=== PATIENT | female | born 1980 | race Caucasian/White ===

== ENCOUNTER 2019-02-26 07:00 | Outpatient (CLI) | payer BC, MEDICAID, SELFPAY ==
--- NOTE | 2019-02-26 16:20 | DI.US_ITS ---
Many abnormalities cannot be diagnosed. A normal exam does not exclude a congenital anomaly. 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 Coleman in attendance. Transabdominal and transvaginal exams were performed. A gestational sac is within the endometrium. The sac appears somewhat collapsed. A pole is seen which does not show cardiac activity, consistent with demise. [place] rump length measurements correspond to 7 weeks 5 days which is nearly two weeks below expected date. The ovaries are unremarkable. No free fluid is seen. IMPRESSION: Non-viable intrauterine gestation.
== END 2019-02-26 07:20 ==
PROVIDERS: PCP Family Medicine; Visit Provider Obstetrics & Gynecology
DX: O03.9 Complete or unspecified spontaneous abortion without complication (principal)
CPT/HCPCS: 76801

== ENCOUNTER 2019-02-27 06:50 | Day surgery (SDC) | payer BC, MEDICAID, SELFPAY ==
[2019-02-27 07:04] VITALS: BP 128/84; PULSE 90; RESP 18; TEMP 36.6; O2SAT 99
[2019-02-27 07:29] LABS: HCT 41.5 % (36.0-46.0); Mean Corp. HGB Concentration 33.7 g/dL (32.0-36.0); Mean Corpuscular Hemoglobin 30.3 pg (27.0-33.0); Mean Corpuscular Volume 89.8 fL (80-95); Mean Platelet Volume 11.7 fL (8.0-11.0); Platelet Count 264 x1000/uL (130-400); RBC 4.62 m/cumm (4.00-5.20); RBC Distribution Width 13.5 % (11.7-14.6); White Blood Cell Count 6.23 k/cumm (4.4-10.8)
[2019-02-27] MEDS: Lactated Ringers 1,000 ML 125 ML IV (07:33)
--- NOTE | 2019-02-27 09:18 | POCSPONT_PTH ---
PATIENT: Yani Catalan LOC: [facility] U#:[id number] AGE/SX: 38/F ROOM: RE02/27/[address]: Ashok Coleman MD : 1980 BED: DIS: 02/27/2019 SPEC #: [id number] RECD: 02/27/19 12:15 STATUS: LONNY RE #: [id number] NALLELY: 02/27/19 09:[address]: Ashok Coleman DEPT: Surgical Specimen RECD BY: Juliana Boyd ENTERED: 02/27/19 12:16 SP TYPE: POCSPONT CARMELO DR: Michelle Gallardo Tissues: 1 - ,SPONTANEOUS Procedures: GROSS AND MICRO LEVEL 4 Comments: [id number]
[2019-02-27] MEDS: Lidocaine 1% Multi-Dose 50 ML VIAL (09:21)
[2019-02-27 10:28] VITALS: BP 119/73; PULSE 71; RESP 14; TEMP 36.5; O2SAT 98
[2019-02-27] MEDS: Acetaminophen 325 MG TAB 650 MG PO (10:30)
--- NOTE | 2019-03-23 10:20 | W.PM.OP ---
Date of service: 02/27/19 Operative Note DATE OF PROCEDURE: 02/27/19 PRE-OP DIAGNOSIS: 7 week missed POST-OP DIAGNOSIS: same PROCEDURE: Suction D&C SURGEON: Ashok Coleman ANESTHESIA: MAC ESTIMATED BLOOD LOSS: 0 COMPLICATIONS: None Patient was transported to: PACU Patient's condition: stable Findings: Products of conception Procedure Description: The patient was taken to the operating room and after an adequate level of sedation was achieved the patient was placed in lithotomy position. The patient was prepped and draped in usual sterile manner. A weighted speculum was placed in the vagina with good visualization of the cervix. The anterior lip of the cervix was grasped with an Allis forcep. The cervix was gently dilated with Lucas dilators and a 9 Bengali curved suction curette was advanced without difficulty. The suction device was activated and curette rotated. Copious products of conception were returned. A sharp curettage was performed yielding additional tissue. A second and third pass was made with the suction curette and a second pass was made a sharp curettage confirming a gritty texture throughout. The procedure was concluded at this point. Sponge lap needle counts were correct at the conclusion of the procedure. The procedure was tolerated well and the patient was transferred to PACU in stable condition.
== END 2019-02-27 11:25 | disposition home or self-care (01) ==
PROVIDERS: PCP Family Medicine; Visit Provider Obstetrics & Gynecology
PROC: (CPT 59841; principal; 2019-02-27 08:30)
DX: O02.1 Missed abortion (principal)
CPT/HCPCS: 59820; 85027; 86850; 86900; 86901; 88305; J1885; J2250; J2405; J3010

== ENCOUNTER 2019-06-12 10:30 | Emergency (ER) | payer BC, MEDICAID, SELFPAY ==
[2019-06-12 10:45] VITALS: BP 146/94; PULSE 104; RESP 16; TEMP 37.1; O2SAT 99
--- NOTE | 2019-06-12 10:56 | ED.GENADUL_ITS ---
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 It is extremely important that you call as soon as possible to make an appointment to be seen in follow-up for this visit by your assistant center director and also by your primary care doctor. Referrals: Michelle Gallardo [Primary Care Provider] - Arnaud RUSSO,Denise [NURSE PRACTITIONER] - Discharge Data Discharge Date/Time-TO BE ENTERED AT DEPARTURE: 06/12/19 12:47 Medical Decision Making Yani Catalan is a 38-year-old woman with a history of asthma G3, P1 presenting to the emergency department with positive test 1 week ago and vaginal spotting today, no pain or other symptoms. On exam patient is well and nontoxic appearing. Concern for ectopic versus threatened . Plan for screening CBC, blood type, UA, U , first trimester ultrasound. Urine test negative. Given patient's report of recent positive test, will send serum quantitative hCG. hCG 4. At this time with no abdominal pain, trace hCG elevation, no symptoms other than light vaginal bleeding, I do not suspect ectopic . Suspect complete miscarriage at this time. Patient declined pelvic exam and pelvic ultrasound which were offered. I had a lengthy discussion with the patient regarding return to emergency department precautions, importance of outpatient follow-up with her PCP and also with her CIGARETTE EXAMINER specialist, and home care. Patient verbalized understanding of the plan was amenable. All questions were a nswered. Medical Records Medical records reviewed: Yes I reviewed the patient's medical records. Lab Data Lab results reviewed: Yes I reviewed the patient's lab results. Laboratory Tests Range/Units 06/12/19 06/12/19 06/12/19 10:56 11:00 11:15 WBC (4.4-10.8) k/cumm 6.95 RBC (4.00-5.20) m/cumm 4.64 Hgb (12.0-15.5) g/dL 14.3 Hct (36.0-46.0) % 42.3 MCV (80-95) fL 91.2 MCH (27.0-33.0) pg 30.8 MCHC (32.0-36.0) g/dL 33.8 RDW (11.7-14.6) % 14.1 Plt Count (130-400) x1000/uL 226 MPV (8.0-11.0) fL 11.8 H Immature Gran % 0.1 Neutrophils % 53.0 Lymphocytes % 35.4 Monocytes % 5.6 Eosinophils % 5.3 Basophils % 0.6 Absolute Neutrophils (1.2-6.7) k/cumm 3.68 Absolute Lymphocytes (1.2-3.4) k/cumm 2.46 Absolute Monocytes (0.11-0.7) k/cumm 0.39 Absolute Eosinophils (0.0-0.7) k/cumm 0.37 Absolute Basophils (0.0-0.2) k/cumm 0.04 Beta HCG, Quant (1-3) mIU/mL Urine Color (Yellow) Straw Urine Clarity (Clear) Sl cloudy Urine pH (5-8) 7.0 Ur Specific [place] (1.005-1.025) <= 1.005 Urine Protein (Negative) mg/dL Negative Urine Ketones (Negative) mg/dL Negative Urine Blood (Negative) Moderate H Urine Nitrite (Negative) Negative Urine Bilirubin (Negative) Negative Urine Urobilinogen (Up TO 0.2) EU/dL 0.2 Ur Leukocyte Esterase (Negative) Trace H Urine RBC (0-2) 0-2 Urine WBC (0-5) HPF 10-20 Ur Epithelial Cells (Negative) HPF Many Urine Crystals (Negative) HPF Negative Urine Bacteria (Negative) HPF Few Urine Mucus (Negative) Negative Urine Other (Negative) Ur Culture Indicated? No/sq. contamination Urine Glucose (Negative) mg/dL Negative Patient ABO/Rh Cancelled Range/Units 06/12/19 11:15 WBC (4.4-10.8) k/cumm RBC (4.00-5.20) m/cumm Hgb (12.0-15.5) g/dL Hct (36.0-46.0) % MCV (80-95) fL MCH (27.0-33.0) pg MCHC (32.0-36.0) g/dL RDW (11.7-14.6) % Plt Count (130-400) x1000/uL MPV (8.0-11.0) fL Immature Gran % Neutrophils % Lymphocytes % Monocytes % Eosinophils % Basophils % Absolute Neutrophils (1.2-6.7) k/cumm Absolute Lymphocytes (1.2-3.4) k/cumm Absolute Monocytes (0.11-0.7) k/cumm Absolute Eosinophils (0.0-0.7) k/cumm Absolute Basophils (0.0-0.2) k/cumm Beta HCG, Quant (1-3) mIU/mL 4 H Urine Color (Yellow) Urine Clarity (Clear) Urine pH (5-8) Ur Specific [place] (1.005-1.025) Urine Protein (Negative) mg/dL Urine Ketones (Negative) mg/dL Urine Blood (Negative) Urine Nitrite (Negative) Urine Bilirubin (Negative) Urine Urobilinogen (Up TO 0.2) EU/dL Ur Leukocyte Esterase (Negative) Urine RBC (0-2) Urine WBC (0-5) HPF Ur Epithelial Cells (Negative) HPF Urine Crystals (Negative) HPF Urine Bacteria (Negative) HPF Urine Mucus (Negative) Urine Other (Negative) Ur Culture Indicated? Urine Glucose (Negative) mg/dL Patient ABO/Rh HPI General Mode of arrival: ambulatory . Date/Time Provider Initiated Documentation: 06/12/19 10:45 . Limitations to Documentation: no limitations . Information obtained by: patient, RN notes reviewed and old records reviewed . HPI Narrative: Yani Catalan is a 38-year-old woman with a history of asthma, presenting to the emergency department with positive test and vaginal bleeding. Patient reports that she has 1 child and had a miscarriage followed by D&C this past spring. Patient reports that her last menstrual. Was May 09. She reports that she had a prior set of test approximately 1 week ago. She has not had an ultrasound. Patient reports that this morning she noticed some vaginal spotting that has become somewhat more pronounced. She de nies any abdominal/pelvic pain or any other pain. She denies any other symptoms and feels otherwise in her usual state of health. Related Data Home Medications Medication Instructions Recorded Confirmed albuterol sulfate 2 puff INHALATION Q6H PRN PRN #1 02/18/15 06/12/19 hfa.aer.ad prenat.vits,herman,[id number]-ckeu-mnipd 1 tab PO DAILY 01/24/19 06/12/19 Previous Rx's Medication Instructions Recorded albuterol sulfate 2 puff INHALATION Q6H PRN PRN #1 02/18/15 hfa.aer.ad Allergies Allergy/AdvReac Type Severity Reaction Status Date / Time No Known Allergies Allergy Unverified 06/12/19 10:49 General Stated Complaint: CIGARETTE EXAMINER CHALO: 2 Review of Systems Review of Systems Constitutional: denies fevers Eyes: denies eye pain ENT: denies facial pain, dental pain, sore throat Cardiovascular: denies chest pain Respiratory: denies SOB, cough GI: denies abdominal pain, vomiting, diarrhea : denies flank pain MSK: denies back pain, neck pain, arthralgias, myalgias Skin: denies rash Neuro: denies headaches, numbness, weakness PFS Medical History Hip dysplasia (Acute) Vaginal delivery (Acute) Surgical History (Updated 02/27/19 @ 07:15 by Rox West RN) History of arthroscopic knee surgery (Chronic) History of hip surgery (Acute) Family History Mother Mouth cancer Social History Smoking/Tobacco Use Status: Never Drug use: Never Details: wine daily up until a couple of months ago. Do you feel safe at home: Yes Do you feel safe in your relationship?: Yes Female Reproductive History Menstrual control method: none History History 1 Para 1 Hx # Term Pregnancies Multiple births Hx # Pregnancies Ectopic pregnancies AB induced Hx Number of Living Children AB spontaneous Exam Narrative Exam Narrative: Constitutional: well and ksc-masum-ajwfysloh, pleasant, conversing normally HENT: head atraumatic/normocephalic/normal inspection, mucous membranes moist Eyes: conjunctiva normal, sclera normal, pupils 3mm b/l Neck: no stridor, normal ROM, trachea midline Chest: normal inspection Resp: normal work of breathing, LCTAB Cardio: normal rate, normal rhythm, no murmur appreciated GI: abdomen soft, non-tender, non-distended Back: normal inspection, no rash Skin: warm, dry, normal color, no rash Neuro: alert, not altered, grossly non-focal, normal tone Ext: no edema Psych: normal mood, normal affect, normal behavior Course Vital Signs Temperature 37.1 C 06/12/19 10:45 Pulse 104 H 06/12/19 10:45 Respiratory Rate 16 06/12/19 10:45 Blood Pressure 146/94 H 06/12/19 10:45 Pulse Oximetry 99 06/12/19 10:45 Temperature 37.1 C 06/12/19 10:45 Temperature Source Skin 06/12/19 10:45 Pulse 104 H 06/12/19 10:45 Respiratory Rate 16 06/12/19 10:45 Respiratory Effort Non-Labored 06/12/19 10:45 Blood Pressure 146/94 H 06/12/19 10:45 Blood Pressure Position Sitting 06/12/19 10:45 Pulse Oximetry 99 06/12/19 10:45 Oxygen Delivery Method Room Air 06/12/19 10:45 Oxygen Flow Rate 0 06/12/19 10:45 Pain Level 0 06/12/19 10:45
[2019-06-12 11:06] LABS: Bilirubin Negative (Negative); Blood Moderate (Negative); Clarity Sl Cloudy (Clear); Glucose Negative (Negative); Ketones Negative (Negative); Leukocyte Esterase Trace (Negative); Nitrite Negative (Negative); Specific Gravity <= 1.005 (1.005-1.025); Urobilinogen 0.2 EU/dL (Up TO 0.2)
[2019-06-12 11:17] LABS: Bacteria Few HPF (Negative); C & S Indicated? No/Sq. Contamination; Crystals Negative HPF (Negative); Epithelial Cells Many HPF (Negative); Mucus Negative (Negative); RBC 0-2 (0-2)
[2019-06-12 11:29] LABS: Abs Immature Grans 0.01 k/cumm (0.0-0.09); Absolute Basophil Count 0.04 k/cumm (0.0-0.2); Absolute Eosinophil Count 0.37 k/cumm (0.0-0.7); Absolute Lymphocyte Count 2.46 k/cumm (1.2-3.4); Absolute Monocyte Count 0.39 k/cumm (0.11-0.7); Absolute Neutrophil Count 3.68 k/cumm (1.2-6.7); Basophils % 0.6; Eosinophils % 5.3; HCT 42.3 % (36.0-46.0); HGB 14.3 g/dL (12.0-15.5); Immature Grans % 0.1; Lymphocytes % 35.4; Mean Corp. HGB Concentration 33.8 g/dL (32.0-36.0); Mean Corpuscular Hemoglobin 30.8 pg (27.0-33.0); Mean Corpuscular Volume 91.2 fL (80-95); Mean Platelet Volume 11.8 fL (8.0-11.0); Monocytes % 5.6; Platelet Count 226 x1000/uL (130-400); RBC 4.64 m/cumm (4.00-5.20); RBC Distribution Width 14.1 % (11.7-14.6); White Blood Cell Count 6.95 k/cumm (4.4-10.8)
[2019-06-12 12:16] LABS: HCG Quant, Pregnancy 4 mIU/mL (1-3)
[2019-06-12 12:42] VITALS: BP 121/83; PULSE 83; RESP 18; TEMP 37.2; O2SAT 97
[2019-06-12 12:48] VITALS: BP 121/83; PULSE 83; RESP 18; TEMP 37.2; O2SAT 97
== END 2019-06-12 12:47 | disposition home or self-care (01) ==
PROVIDERS: Emergency Provider Student in an Organized Health Care Education/Training Program; PCP Family Medicine
DX: N93.8 Other specified abnormal uterine and vaginal bleeding (principal)
CPT/HCPCS: 36415; 81025; 86900; 86901; 99284; 81003; 81015; 84702; 85025

== ENCOUNTER 2019-07-26 09:03 | Outpatient (CLI) | payer BC, MEDICAID, SELFPAY ==
[2019-07-26 10:27] LABS: TSH 2.23 uIU/mL (0.36-3.74)
[2019-07-30 13:14] LABS: MTHFR A1298C Mutation Analysis Negative (Negative); Methylenetetrahydrofol Reduc M Negative (Negative); Prothrombin G20210A Mutation Negative (Negative)
[2019-07-30 18:04] LABS: Dilute Russell Viper Venom 34.4 secs (27.2-36.9); LA Cascade Summary SEE COMMENTS; Silica Clotting Time 39.6 sec (30.2-48.4)
[2019-08-01 11:01] LABS: Protein C, Functional 107 % (71-199)
[2019-08-01 11:04] LABS: Protein S, Functional 106 % (64-147)
[2019-08-08 08:38] LABS: Factor V Leiden (R506Q) Mutat See Comments
== END 2019-07-26 09:23 ==
PROVIDERS: PCP Family Medicine; Visit Provider Obstetrics & Gynecology
DX: N96 Recurrent pregnancy loss (principal)
CPT/HCPCS: 36415; 81240; 81291; 85306; 86147; 87116; 81241; 84443; 85303

== ENCOUNTER 2019-08-20 09:02 | Outpatient (CLI) | payer BC, MEDICAID, SELFPAY ==
[2019-08-20 10:36] LABS: HCG Quant, Pregnancy 3 mIU/mL (1-3)
== END 2019-08-20 09:22 ==
PROVIDERS: PCP Family Medicine; Visit Provider Nurse Practitioner Women's Health
DX: O03.9 Complete or unspecified spontaneous abortion without complication (principal)
CPT/HCPCS: 36415; 84702

== ENCOUNTER 2019-09-19 14:29 | Outpatient (CLI) | payer BC, MEDICAID, SELFPAY ==
[2019-09-19 15:12] LABS: HCG Quant, Pregnancy 4 mIU/mL (1-3)
== END 2019-09-19 14:49 ==
PROVIDERS: PCP Family Medicine; Visit Provider Nurse Practitioner Women's Health
DX: O20.9 Hemorrhage in early pregnancy, unspecified (principal)
CPT/HCPCS: 36415; 84702

== ENCOUNTER 2019-10-26 16:14 | Outpatient (CLI) | payer BC, SELFPAY ==
[2019-10-29 11:09] LABS: FSH 7.5 mIU/mL (See Note)
[2019-10-29 13:00] LABS: Rubella IgG Ab (UVM) Positive (See Note); Varicella IgG Antibody Positive (See Note)
[2019-11-01 16:08] LABS: Antimullerian Hormone 4.1 ng/mL (0.9-9.5)
== END 2019-10-26 16:34 ==
PROVIDERS: PCP Family Medicine; Visit Provider Obstetrics & Gynecology
DX: N96 Recurrent pregnancy loss (principal); Z01.84 Encounter for antibody response examination
CPT/HCPCS: 36415; 86787; 83001; 83520; 84443; 86762

== ENCOUNTER 2020-05-13 03:13 | Outpatient (CLI) | payer BC, MEDICAID, SELFPAY ==
[2020-05-13 16:18] LABS: Abs Immature Grans 0.01 k/cumm (0.0-0.09); Absolute Basophil Count 0.02 k/cumm (0.0-0.2); Absolute Eosinophil Count 0.35 k/cumm (0.0-0.7); Absolute Lymphocyte Count 2.19 k/cumm (1.2-3.4); Absolute Monocyte Count 0.39 k/cumm (0.11-0.7); Absolute Neutrophil Count 6.07 k/cumm (1.2-6.7); Basophils % 0.2; Eosinophils % 3.9; HCT 38.4 % (36.0-46.0); HGB 12.7 g/dL (12.0-15.5); Immature Grans % 0.1 %; Lymphocytes % 24.3; Mean Corp. HGB Concentration 33.1 g/dL (32.0-36.0); Mean Corpuscular Hemoglobin 29.5 pg (27.0-33.0); Mean Corpuscular Volume 89.3 fL (80-95); Mean Platelet Volume 11.8 fL (8.0-11.0); Monocytes % 4.3; Neutrophils % 67.2; Platelet Count 274 x1000/uL (130-400); RBC Distribution Width 13.5 % (11.7-14.6); White Blood Cell Count 9.03 k/cumm (4.4-10.8)
[2020-05-13 16:22] LABS: Kit/Specimen SENT
[2020-05-13 16:48] LABS: TSH (W/Ref FT4) 0.72 uIU/mL (0.36-3.74)
[2020-05-14 09:11] LABS: Hepatitis B Surface Ag Negative (Negative)
[2020-05-14 09:48] LABS: HIV-1/2 Ag & Ab Screen Negative (Negative)
[2020-05-14 10:02] LABS: Hepatitis C Ab w Rflx HCV PCR Negative (Negative)
[2020-05-14 11:26] LABS: Rubella IgG Ab (UVM) Positive (See Note); Varicella IgG Antibody Positive (See Note)
[2020-05-14 11:29] LABS: Syphilis Serology (RPR) Negative (Negative)
[2020-05-21 10:26] LABS: Specimen WB Whole Blood
[2020-05-21 14:55] LABS: Result Summary NEGATIVE; Specimen WB Whole Blood
== END 2020-05-13 03:33 ==
PROVIDERS: PCP Family Medicine; Visit Provider Obstetrics & Gynecology
DX: Z34.91 Encounter for supervision of normal pregnancy, unspecified, first trimester (principal); Z11.59 Encounter for screening for other viral diseases; Z11.4 Encounter for screening for human immunodeficiency virus [HIV]; Z36.89 Encounter for other specified antenatal screening; Z01.84 Encounter for antibody response examination; Z3A.12 12 weeks gestation of pregnancy
CPT/HCPCS: 36415; 80055; 80307; 81329; 86787; 86803; 86850; 86900; 86901; 87340; 87389; 81220; 84443; 86592; 86762

== ENCOUNTER 2020-05-13 16:04 | Outpatient (REF) | payer BC, MEDICAID, SELFPAY ==
--- NOTE | 2020-05-13 15:20 | PAPFT_PTH ---
PATIENT: Yani Catalan LOC: [facility] U#:[id number] AGE/SX: 39/F ROOM: RE05/13/[address]: Ashok Coleman MD : 1980 BED: DIS: 05/13/2020 SPEC #: [id number] RECD: 05/13/20 17:37 STATUS: SHWETHAJudd REQ #: [id number] NALLELY: 05/13/20 15:[address]: Ashok Coleman DEPT: [facility] Cytology RECD BY: Juliana Boyd ENTERED: 05/13/20 17:38 SP TYPE: PAPFT OTHR DR: Michelle Gallardo Tissues: 1 - CX/ENDOCX FOR PAP SMEARS Procedures: PAP THIN PREP/UVM Screening HPV DNA PROBE Comments: [id number] (CHLAMYDIA/GC)
[2020-05-13 17:24] LABS: *AMPHETAMINES SCREEN URINE Negative (Negative); *BARBITURATES SCREEN URINE Negative (Negative); *BENZODIAZEPINES SCREEN URINE Negative (Negative); Cannabinoids THC Negative (Negative); Cocaine Screen,Urine Negative (Negative); METHADONE URINE SCREEN Negative (Negative); OPIATES URINE SCREEN Negative (Negative); Tricyclic Antidepressants Negative (Negative)
[2020-05-15 07:09] LABS: Chlamydia Result Negative (Negative); GC Result Negative (Negative)
[2020-05-20 12:02] LABS: Buprenorphine Negative; Norbuprenorphine Negative
== END 2020-05-13 16:24 ==
LOC: LBN 16:04
PROVIDERS: PCP Family Medicine; Visit Provider Obstetrics & Gynecology
DX: Z12.4 Encounter for screening for malignant neoplasm of cervix (principal); Z11.51 Encounter for screening for human papillomavirus (HPV); Z11.3 Encounter for screening for infections with a predominantly sexual mode of transmission; Z34.91 Encounter for supervision of normal pregnancy, unspecified, first trimester
CPT/HCPCS: 80307; 87491; 87591; 88142; 87624

== ENCOUNTER 2020-07-08 00:33 | Outpatient (CLI) | payer BC, MEDICAID, SELFPAY ==
--- NOTE | 2020-07-08 07:45 | DI.US_ITS ---
EXAM: US OB 2-3 TRIMESTER CLINICAL HISTORY: anatomy scan, , Z34.90. TECHNIQUE: Transabdominal obstetrical ultrasound performed. COMPARISON: US US OB 1st trimester from 02/26/2019 FINDINGS: Transabdominal obstetrical ultrasound performed. FINDINGS: Number of fetuses: One. position: Breech heart rate: 150 bpm. Placental location: Anterior. Low-lying placenta. The placental tip is 1.5 cm from the internal os. BIOMETRIC DATA: EFW: 355 grms 55% Composite Age: 20 weeks 4 days EDC: 11/21/2020 Heart Rate: 150BPM Amniotic fluid index: Amount of fluid is within normal limits. ANATOMICAL SURVEY: Within normal limits. BPD: 4.9cm HC: 18.3cm AC: 15.6cm FL: 3.2cm Cisterna Magna: 4.7 mm Cerebellum: 2.1 cm IMPRESSION: 1. Single live intrauterine gestation as above. 2. Low-lying placenta. 3. Normal anatomic survey. DATA REPOSITORY:
== END 2020-07-08 00:53 ==
PROVIDERS: PCP Family Medicine; Visit Provider Obstetrics & Gynecology
DX: Z34.92 Encounter for supervision of normal pregnancy, unspecified, second trimester (principal)
CPT/HCPCS: 76805

== ENCOUNTER 2020-08-21 14:55 | Outpatient (REF) | payer BC, MEDICAID, SELFPAY | END 2020-08-21 15:15 | LOC: LBN 14:55 | PROVIDERS: PCP Family Medicine; Visit Provider Obstetrics & Gynecology | DX: N89.8 Other specified noninflammatory disorders of vagina (principal); O26.892 Other specified pregnancy related conditions, second trimester | CPT/HCPCS: 87480; 87510; 87660 ==

== ENCOUNTER 2020-09-02 02:20 | Outpatient (CLI) | payer BC, MEDICAID, SELFPAY ==
[2020-09-02 09:44] LABS: Absolute Basophil Count 0.02 10^3/uL (0.0-0.2); Absolute Lymphocyte Count 2.04 10^3/uL (1.2-3.4); Absolute Monocyte Count 0.32 10^3/uL (0.1-0.8); Absolute Neutrophil Count 7.08 10^3/uL (1.2-6.7); Basophils % 0.2; HCT 35.7 % (36.0-46.0); HGB 11.6 g/dL (11.2-15.7); Lymphocytes % 20.9; MCH 29.2 pg (27.0-33.0); MCHC 32.5 % (32.0-36.0); MCV 89.9 fL (80-95); MPV 11.5 fL (8.0-11.0); Monocytes % 3.3; Neutrophils % 72.6; Nucleated RBC 0 %; Platelet Count 211 10^3/uL (130-400); RBC 3.97 10^6/uL (3.93-5.22); RDW 13.2 % (11.7-14.6); RDW-SD 44.1 fL; WBC 9.76 10^3/uL (4.4-10.8)
[2020-09-02 10:01] LABS: Glucose,1 Hr (Glucola) 158 mg/dL (80-140)
[2020-09-02 10:58] LABS: TSH (W/Ref FT4) 0.74 uIU/mL (0.36-3.74)
== END 2020-09-02 02:40 ==
PROVIDERS: Obstetrics & Gynecology; PCP Family Medicine; Visit Provider Obstetrics & Gynecology Gynecology
DX: O99.283 Endocrine, nutritional and metabolic diseases complicating pregnancy, third trimester (principal); E03.9 Hypothyroidism, unspecified; Z3A.28 28 weeks gestation of pregnancy
CPT/HCPCS: 36415; 82950; 84443; 85025

== ENCOUNTER 2020-09-10 03:00 | Outpatient (CLI) | payer BC, MEDICAID, SELFPAY ==
[2020-09-10 09:29] LABS: Glucose 1 Hour 175 mg/dL
[2020-09-10 11:25] LABS: Glucose 3 Hour 161 mg/dL
== END 2020-09-10 03:20 ==
PROVIDERS: PCP Family Medicine; Visit Provider Obstetrics & Gynecology
DX: R73.09 Other abnormal glucose (principal)
CPT/HCPCS: 36410; 82951

== ENCOUNTER 2020-09-16 00:59 | Outpatient (CLI) | payer BC, MEDICAID, SELFPAY ==
--- NOTE | 2020-09-12 10:54 | W.DIABETESNO ---
Date of service: 09/12/20 Time of Service: 10:54 Diabetes Note NOTE: Received referal for Medical Nutrition Therapy for GDM. Called Yani today at home and reviewed GDM, diet and exericse goals. Will meet in person at next [facility] visit on 09/16/20. Yani has not picked up glucometer yet, encouraged her to so today and start logging meals/BS for review next week. Provided contact information for questions/concerns. Time Spent in Nutritional Counseling and Treatment: 10 min on phone
--- NOTE | 2020-09-16 06:30 | DI.US_ITS ---
EXAM: US OB F/U FACIAL/LVOT/RVOT CLINICAL HISTORY: re-check placental location,O44.42. TECHNIQUE: Transabdominal obstetrical ultrasound performed. COMPARISON: US US OB 2-3 TRIMESTER from 07/08/2020 FINDINGS: Transabdominal obstetrical ultrasound performed. FINDINGS: Number of fetuses: One. position: Cephalic. Placental location: Anterior. There is no evidence of previa. The placental tip now lies 9 cm from the internal os. BIOMETRIC DATA: Heart Rate: 153BPM Amniotic fluid: Visually, amount of fluid is within normal limits. IMPRESSION: 1. Single live intrauterine gestation as above. 2. No evidence of a low-lying placenta or placenta previa. The placental tip now lies 9 cm from the internal os. 3. Amniotic fluid: Visually within normal limits. DATA REPOSITORY:
== END 2020-09-16 01:19 ==
PROVIDERS: PCP Family Medicine; Visit Provider Obstetrics & Gynecology Gynecology
DX: Z34.92 Encounter for supervision of normal pregnancy, unspecified, second trimester (principal)
CPT/HCPCS: 76815

== ENCOUNTER 2020-09-16 14:30 | Outpatient (CLI) | payer BC, MEDICAID, SELFPAY ==
--- NOTE | 2020-09-16 10:00 | NS.NUTBLAN_ITS ---
Yani was referred for Medical Nutrition Therapy for gestational diabetes. TANG 11-24-20. No family hx of DM, or GDM with previous . Prepregnancy weight and weight gain wnl. Now with elevated OGT. Yani has been checking her BS 4 times daily for the last week and brought in her glucometer for review. Fasting BS average 85 mg/dl, 1 hour post prandial BS average 143mg/dl. Post prandial levels mildy elevated but overall GDM well controlled without medication at this time. Reviewed optimal meal plans and provided education on consistent carbohydrate content of meals, pairing carbohydrate with protein and eating well balanced meals 3 times daily with 2-3 snacks during day. Overall, Yani hopes to manage GDM with diet and exercise and will start walking daily for 10-15 minutes. Reviewed risks with GDM and role of life style and diet in preventing elevated BS. Yani was receptive to information. Provided meal plans and ideal BS ranges and contact information. Will follow up as needed and at next [facility] visit.
== END 2020-09-16 14:50 ==
PROVIDERS: PCP Family Medicine; Visit Provider Dietitian, Registered
DX: O24.410 Gestational diabetes mellitus in pregnancy, diet controlled (principal); Z71.3 Dietary counseling and surveillance
CPT/HCPCS: 97802

== ENCOUNTER 2020-10-14 10:23 | Outpatient (CLI) | payer BC, MEDICAID, SELFPAY ==
--- NOTE | 2020-10-14 10:00 | NS.NUTBLAN_ITS ---
Follow up Medical Nutrition Therapy provided for Yani today in [facility]. TANG 11/24/20. Dx with GDM. Reports elevated post prandial blood sugars after breakfast (140-160 mg/dl). Reports fasting sugars <95 mg/dl, 1 hr post prandial BS after lunch and dinner < 140 mg/dl. Breakfast choices include WW toast with PB or egg, hot cereal. Recommended that Yani have breakfast with < 10 grams of carbs with emphasis on protein and healthy fats. Breakfast ideas included cottage cheese with fruit, whole milk kosovan yogurt, omelets, Slim fast low carb shake or bars, Muscle milk shake or bars. Also encouraged Yani to investigate various higher protein waffles/pancakes available in freezer section. Encouraged walking 20-30 min daily and to continue balanced meals for rest of day. Current Meal Plan: [id number] kcal, 175-200 g CHO daily, up to 10 grams carb at breakfast, 40-50 g carbs at lunch and dinner, 15-30 carbs at snacks BID. Enocuraged all meals to contain protein and healthy fats to reduce glycemic index. Plan: Yani to continue to monitor BS as ordered by and to report high and low BS to Yani SORTO to email/call marketing copywriter with questions on diet, follow up planned at next [facility] visit.
== END 2020-10-14 10:43 ==
PROVIDERS: PCP Family Medicine; Visit Provider Dietitian, Registered
DX: O24.410 Gestational diabetes mellitus in pregnancy, diet controlled (principal); Z71.3 Dietary counseling and surveillance
CPT/HCPCS: 97803

== ENCOUNTER 2020-10-23 15:45 | Outpatient (CLI) | payer BC, MEDICAID, SELFPAY ==
--- NOTE | 2020-10-23 14:00 | NS.NUTBLAN_ITS ---
Yani returns for medical nutrition therapy for GDM. Yani is 35 weeks , +13 lbs weight gain and reports fasting blood sugars < 95, post prandial > 135 mg/dl. She did not bring in her glucometer or blood sugar log. She reports eating a protein shake for breakfast, typically has a veggie wrap for lunch and lean protein and non starchy vegetables for dinner. She is fatigued with checking her blood sugars and is very tired of her limited meal options. She notes that when she eats bread, rice, pasta, yogurt or fruit, her BS before > 150 mg/dl. Weight gain and GDM well controlled with diet and lifestyle changes at this time. We discussed benefits of breast feeding and importance of exercise and a well balanced diet post for normalization of glycemic control. We discussed risk factors associated with GMD such as Type 2 Dm later in life. Plan: will continue to support. Yani to email me her blood sugar logs weekly.
== END 2020-10-23 16:05 ==
PROVIDERS: PCP Family Medicine; Visit Provider Dietitian, Registered
DX: O24.410 Gestational diabetes mellitus in pregnancy, diet controlled (principal); Z3A.35 35 weeks gestation of pregnancy; Z71.3 Dietary counseling and surveillance
CPT/HCPCS: 97803

== ENCOUNTER 2020-10-29 14:38 | Outpatient (REF) | payer BC, MEDICAID, SELFPAY ==
[2020-10-29 15:32] LABS: *AMPHETAMINES SCREEN URINE Negative (Negative); *BARBITURATES SCREEN URINE Negative (Negative); *BENZODIAZEPINES SCREEN URINE Negative (Negative); Cannabinoids THC Negative (Negative); Cocaine Screen,Urine Negative (Negative); METHADONE URINE SCREEN Negative (Negative); OPIATES URINE SCREEN Negative (Negative)
[2020-10-29 15:37] LABS: Tricyclic Antidepressants Negative (Negative)
[2020-11-06 11:26] LABS: Buprenorphine Negative
== END 2020-10-29 14:58 ==
LOC: LBN 14:38
PROVIDERS: PCP Family Medicine; Visit Provider Obstetrics & Gynecology Gynecology
DX: Z34.93 Encounter for supervision of normal pregnancy, unspecified, third trimester (principal); Z36.85 Encounter for antenatal screening for Streptococcus B; Z3A.36 36 weeks gestation of pregnancy
CPT/HCPCS: 80307; 87081

== ENCOUNTER 2020-11-13 11:48 | Outpatient (CLI) | payer BC, MEDICAID, SELFPAY ==
[2020-11-13 11:55] VITALS: BP 134/85; PULSE 85; TEMP 37
[2020-11-13 12:10] VITALS: BP 134/85; PULSE 85
[2020-11-13 12:19] VITALS: BP 134/85; PULSE 85; TEMP 37
--- NOTE | 2020-11-13 12:19 | W.OBNST ---
Date of service: 11/13/20 Time of Service: 12:19 NST Evaluation Reason for NST Reasons for Nonstress Test: ADVANCED MATERNAL AGE Gestational Age Gestational Age in Weeks and Days: 38 Weeks and 4Days Test and Monitor Explained Test/Monitor Explained: Test Explained, Monitor Explained and Patient Verbalized Understanding Vital Signs Blood Pressure: 134/85 Pulse: 85 Temperature: 98.6 F NST Information Date on Monitor: 11/13/20 Time on Monitor: 11:57 NST Interventions: PO Hydration NST Evaluation Patient States Movement: Present FHR Baseline: 130 Variability: Moderate 6-25 bpm Accelerations: 15x15 Decelerations: None NST Results: Reactive Note NST Note Note: Category 1 strip NST Reviewed and Verified by: Alda Samayoa
== END 2020-11-13 12:22 | disposition home or self-care (01) ==
LOC: BCD 11:53 → OBS 11:54
PROVIDERS: PCP Family Medicine; Visit Provider Obstetrics & Gynecology
DX: O09.523 Supervision of elderly multigravida, third trimester (principal); Z3A.40 40 weeks gestation of pregnancy
CPT/HCPCS: 59025

== ENCOUNTER 2020-11-17 06:39 | Outpatient (CLI) | payer BC, MEDICAID, SELFPAY ==
[2020-11-17 07:27] VITALS: BP 148/85; PULSE 101
[2020-11-17 07:30] VITALS: BP 143/88; PULSE 93; TEMP 36.7
[2020-11-17 07:40] VITALS: BP 143/88; PULSE 93
--- NOTE | 2020-11-17 13:18 | W.OBNST ---
Date of service: 11/17/20 Time of Service: 13:18 NST Evaluation Reason for NST Reasons for Nonstress Test: ADVANCED MATERNAL AGE Gestational Age Gestational Age in Weeks and Days: 39 Weeks and 0Days Test and Monitor Explained Test/Monitor Explained: Test Explained, Monitor Explained and Patient Verbalized Understanding Vital Signs Blood Pressure: 143/88 Pulse: 93 Temperature: 98.1 F Urine Results Urine Protein: Positive Urine Ketones: Negative Urine Glucose: Negative Urine Blood: Negative NST Information Date on Monitor: 11/17/20 Time on Monitor: 07:26 Date off Monitor: 11/17/20 Time off Monitor: 07:46 Total Time on Monitor: 20 NST Interventions: PO Hydration NST Evaluation Patient States Movement: Present FHR Baseline: 145 Variability: Moderate 6-25 bpm Accelerations: 15x15 Decelerations: None NST Results: Reactive Note NST Note Note: Category 1 nonstress test. Occasional contractions. Cervix is 1, 60%, vertex. Induction scheduled NST Reviewed and Verified by: Alda Samayoa
[2020-11-17 13:19] VITALS: BP 143/88; PULSE 93; TEMP 36.7
== END 2020-11-17 08:00 | disposition home or self-care (01) ==
LOC: BCD 06:40 → OBS 07:20
PROVIDERS: PCP Family Medicine; Visit Provider Obstetrics & Gynecology
DX: O09.523 Supervision of elderly multigravida, third trimester (principal); Z3A.39 39 weeks gestation of pregnancy
CPT/HCPCS: 59025

== ENCOUNTER 2020-11-17 13:20 | Inpatient (IN) | payer BC, MEDICAID, SELFPAY ==
--- NOTE | 2020-11-17 13:24 | HPE_ITS ---
Date of service: 11/17/20 Time of Service: 13:25 Assessment and Plan Assessment and plan (1) HRP (high risk ): Status: Acute Assessment and plan: Patient is a 40-year-old 5 para 1 who is had care with women's wellness. She has been in surveillance due to advanced maternal age with reactive nonstress testing and satisfactory surveillance. She is known to be group B strep positive. She will have labor induction after 39 weeks with cervical ripening followed by Pitocin augmentation of labor. She will receive penicillin for her group B strep positive status. Risk benefits and alternatives of labor induction were explained patient full informed consent was obtained. Anticipation for vaginal delivery with a fetus that weighs approximately 8 pounds by [facility]. (2) Advanced maternal age (AMA) in : Status: Acute (3) Mother positive for group B Streptococcus colonization: Status: Acute OB-HPI Labor/Delivery History of Present Illness Chief Complaint: Scheduled Induction of Labor (Term labor induction with advanced maternal age) Indication for Induction: Other (Advanced maternal age). TNAG Calculator Estimated Delivery Date Method Current WG Current Estimate 11/24/20 LMP (Certain) 39w 0d Other Estimates 11/23/20 Ultrasound #1 39w 1d History of Present Expected Delivery Route/Plan . FOB-Bipin Specific Issues/Plan 1. Hypothyroidism. Rx with Synthroid by [facility]. TSH 09/02/2020: Normal 2. Recurrent loss. 3. Low Lying placenta. 09/16/2020: Resolved 4. GBS RV CX: Positive Assessment: History Reviewed & Current Narrative: Patient will be admitted to the center for cervical ripening followed by Pitocin augmentation of labor at term. She is of advanced maternal age. She has been in surveillance. She is group B strep positive and will receive antibiotics. Informed Consent Informed Consent: Induction of Labor and Risk,Benefits,Alternatives Discussed Review of Systems All systems reviewed & are unremarkable except as noted in HPI and below Constitutional Constitutional: Reports as per HPI, Denies chills and Denies fever(s) Eyes Eyes: Reports system reviewed and no additional complaints, except as documented Cardiovascular Cardiovascular: Reports system reviewed and no additional complaints, except as documented Respiratory Respiratory: Reports system reviewed and no additional complaints, except as documented Gastrointestinal Gastrointestinal: Reports system reviewed and no additional complaints, except as documented, Denies abdominal pain, Denies diarrhea and Denies vomiting Genitourinary Genitourinary: Reports system reviewed and no additional complaints, except as documented Neurologic Neurologic: Reports system reviewed and no additional complaints, except as documented Psychiatric Psychiatric: Reports system reviewed and no additional complaints, except as documented [facility] Medical History (Updated 11/17/20 @ 13:29 by Alda Samayoa DO) Advanced maternal age (AMA) in Hip dysplasia HRP (high risk ) Low-lying placenta in second trimester Repeat ultrasound for placentation at 28 weeks Mother positive for group B Streptococcus colonization Vaginal delivery Surgical History History of arthroscopic knee surgery History of hip surgery Family History Mother Mouth cancer Social History Smoking/Tobacco Use Status: Never Smoking risk assessment performed?: Yes Drug use: Never Details: wine daily up until a couple of months ago. 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 Do you feel safe at home: Yes Do you feel safe in your relationship?: Yes Female Reproductive History Menstrual control method: none History History 5 Para 1 Hx # Term Pregnancies Multiple births Hx # Pregnancies Ectopic pregnancies AB induced Hx Number of Living Children AB spontaneous 3 Meds Home Medications and Allergies Home Medications Medication Instructions Recorded Confirmed Type albuterol sulfate 2 puff INHALATION Q6H PRN PRN #1 02/18/15 11/13/20 Rx hfa.aer.ad prenat.vits,herman,uph-rpmh-eojhl 1 tab PO DAILY 01/24/19 11/13/20 History levothyroxine 50 mcg tablet 50 mcg PO DAILY #30 tab 08/01/20 11/13/20 Rx aspirin 81 mg chewable tablet 81 mg PO DAILY 09/02/20 11/13/20 History blood sugar diagnostic #100 ea 09/11/20 11/13/20 Rx blood-glucose meter #1 ea 09/11/20 11/13/20 Rx lancets 33 gauge #100 ea 09/11/20 11/13/20 Rx breast pump #1 ea 11/05/20 11/13/20 Rx Allergies Allergy/AdvReac Type Severity Reaction Status Date / Time No Known Allergies Allergy Verified 11/05/20 11:26 Exam Physical Exam Vital Signs Reviewed: Yes Constitutional Constitutional: no acute distress Detailed Labor and Delivery Exam Carrington Score: Cervical Points Exam 0 1 2 3 Dilation Closed 1-2cm 3-4 cm 5-6cm Effacement 0-30% 40-50% 60-70% 80% Consistency Firm Medium Soft Station -3 -2 -1,0 +1,+2 Position Posterior Mid Anterior Fetus A Heart Rate Baseline: 150 Monitor Accelerations: 15 X 15 Monitor Decelerations: None Variability: Moderate (6-25 BPM) Presentation: Cephalic Categories: Category I Est. Weight: 8 lb HEENT Exam HEENT Exam: Normal Neck Exam Neck Exam: Normal Respiratory Exam Respiratory Exam: Normal Cardiovascular Exam Cardiovascular Exam: Normal Abdominal Exam Abdominal Exam: Normal Exam Exam: Normal Detailed Extremities Exam Extremities: Absent cyanosis, clubbing, edema, calf tenderness and Deyanira's sign Skin Exam Skin Exam: Normal Neurological Exam Neurological Exam: Normal Psychiatric Exam Psychiatric Exam: Normal Results Results Group Beta Strep: Positive Blood Type: O+ Rubella Status: Immune Varicella Immunity: Immune Risk Assessment Risk for Shoulder Dystocia Historical/Initial OB: NEGATIVE FOR: Pelvic Abnormality Risks Reviewed Risks Reviewed Upon Admission: Yes
[2020-11-19 13:37] VITALS: BP 149/89; PULSE 105; RESP 16; TEMP 36.7
[2020-11-19 13:38] VITALS: BP 149/89; PULSE 105
[2020-11-19] MEDS: Normal Saline Flush 10 ML SYR IVP (15:05)
[2020-11-19] MEDS: miSOPROStol 25 MCG TAB PO ×2 (15:05→19:34)
[2020-11-19 15:24] LABS: HCT 33.2 % (36.0-46.0); HGB 11.2 g/dL (11.2-15.7); MCHC 33.7 % (32.0-36.0); Platelet Count 147 10^3/uL (130-400); RBC 3.73 10^6/uL (3.93-5.22); RDW 13.9 % (11.7-14.6); RDW-SD 45.5 fL; WBC 8.08 10^3/uL (4.4-10.8)
[2020-11-19] MEDS: Penicillin G POT. 5,000,000 UNITS in Normal Saline 100 ML 200 UNITS IVPB (15:42)
[2020-11-19] MEDS: Lactated Ringers 1,000 ML 125 ML IV (15:43)
--- NOTE | 2020-11-19 16:46 | W.PM.OBNL1 ---
Date of service: 11/19/20 Time of Service: 16:46 Informed Consent Informed Consent: Induction of Labor and Risk,Benefits,Alternatives Discussed Assessment and Plan Assessment and plan (1) HRP (high risk ): Status: Acute Assessment and plan: Commence labor induction with cervical ripening with misoprostol. She is group B strep positive and penicillin has been ordered. We will continue to monitor both her and baby throughout the process. Pain control as needed. Anticipate vaginal delivery. (2) Advanced maternal age (AMA) in : Status: Acute (3) Mother positive for group B Streptococcus colonization: Status: Acute Objective Abnormal lab results 11/19/20 Range/Units 15:13 RBC 3.73 L (3.93-5.22) 10^6/uL Hct 33.2 L (36.0-46.0) % MPV 13.0 H (8.0-11.0) fL Temp Pulse Resp BP 98.1 F 105 H 16 149/89 H 11/19/20 13:37 11/19/20 13:38 11/19/20 13:37 11/19/20 13:38 Laboratory Results WBC 8.08 10^3/uL (4.4-10.8) 11/19/20 15:13 RBC 3.73 10^6/uL (3.93-5.22) L 11/19/20 15:13 Hgb 11.2 g/dL (11.2-15.7) 11/19/20 15:13 Hct 33.2 % (36.0-46.0) L 11/19/20 15:13 MCV 89.0 fL (80-95) 11/19/20 15:13 MCH 30.0 pg (27.0-33.0) 11/19/20 15:13 MCHC 33.7 % (32.0-36.0) 11/19/20 15:13 RDW 13.9 % (11.7-14.6) 11/19/20 15:13 Plt Count 147 10^3/uL (130-400) 11/19/20 15:13 MPV 13.0 fL (8.0-11.0) H 11/19/20 15:13 Patient ABO/Rh O Positive 11/19/20 15:13 Antibody Screen Negative 11/19/20 15:13 Subjective Patient Reports: No new Complaints Interval history since last seen: Patient seen in the center today for beginning of her labor induction. She was seen and examined cervix was found to be fingertip, 70%, soft and posterior. heart tones are in the 140s moderate variability good accelerations. She did have a deceleration to the 90s for approximately 2 minutes which recovered spontaneously. Results Hemoglobin/Hematocrit: Hgb 11.2 g/dL (11.2-15.7) 11/19/20 15:13 Hct 33.2 % (36.0-46.0) L 11/19/20 15:13 Abnormal Lab Findings: Abnormal Labs 11/19/20 15:13 RBC 3.73 L Hct 33.2 L MPV 13.0 H Procedure Procedures: Cervical Ripening (25 mcg of misoprostol placed intravaginally) Cervical Ripening: Misoprostol
[2020-11-19 19:48] VITALS: BP 136/92; PULSE 75; RESP 16; TEMP 36.9
--- NOTE | 2020-11-19 20:01 | PGE_ITS ---
Date of service: 11/19/20 Time of Service: 20:01 Informed Consent Informed Consent: Induction of Labor and Risk,Benefits,Alternatives Discussed Assessment and Plan Assessment and plan (1) HRP (high risk ): Status: Acute Assessment and plan: Continue labor induction. Cervical ripening with misoprostol. Pitocin if needed. Patient will have penicillin for group B strep prophylaxis. Anticipate vaginal delivery. Pain control as needed. (2) Advanced maternal age (AMA) in : Status: Acute (3) Mother positive for group B Streptococcus colonization: Status: Acute Objective Abnormal lab results 11/19/20 Range/Units 15:13 RBC 3.73 L (3.93-5.22) 10^6/uL Hct 33.2 L (36.0-46.0) % MPV 13.0 H (8.0-11.0) fL Temp Pulse Resp BP 98.4 F 75 16 136/92 H 11/19/20 19:48 11/19/20 19:48 11/19/20 19:48 11/19/20 19:48 Laboratory Results WBC 8.08 10^3/uL (4.4-10.8) 11/19/20 15:13 RBC 3.73 10^6/uL (3.93-5.22) L 11/19/20 15:13 Hgb 11.2 g/dL (11.2-15.7) 11/19/20 15:13 Hct 33.2 % (36.0-46.0) L 11/19/20 15:13 MCV 89.0 fL (80-95) 11/19/20 15:13 MCH 30.0 pg (27.0-33.0) 11/19/20 15:13 MCHC 33.7 % (32.0-36.0) 11/19/20 15:13 RDW 13.9 % (11.7-14.6) 11/19/20 15:13 Plt Count 147 10^3/uL (130-400) 11/19/20 15:13 MPV 13.0 fL (8.0-11.0) H 11/19/20 15:13 Patient ABO/Rh O Positive 11/19/20 15:13 Antibody Screen Negative 11/19/20 15:13 Subjective Patient Reports: New Complaints Interval history since last seen: Patient seen. She is status post 1 dose of vaginal misoprostol and 1 dose of penicillin for group B strep prophylaxis. After her first dose, she was feeling somewhat crampy, but no regular contractions. She does state when she was up to the restroom she had some bro wnish discharge consistent with mucous plug. Otherwise she is feeling well. Results Hemoglobin/Hematocrit: Hgb 11.2 g/dL (11.2-15.7) 11/19/20 15:13 Hct 33.2 % (36.0-46.0) L 11/19/20 15:13 Abnormal Lab Findings: Abnormal Labs 11/19/20 15:13 RBC 3.73 L Hct 33.2 L MPV 13.0 H Procedure Procedures: Cervical Ripening Cervical Ripening: Misoprostol
[2020-11-19 22:23] VITALS: BP 126/72; PULSE 67
[2020-11-19 23:58] LABS: COVID-19 RT-PCR UVMMC Result Negative (Negative)
[2020-11-20] VITALS (12 sets, daily range): BP systolic 122–162; BP diastolic 73–98; PULSE 65–86; RESP 16–20; TEMP 36.3–37; O2SAT 96–98
--- NOTE | 2020-11-20 01:02 | W.PM.OBNL1 ---
Date of service: 11/20/20 Time of Service: 01:02 Informed Consent Informed Consent: Induction of Labor and Risk,Benefits,Alternatives Discussed Assessment and Plan Assessment and plan (1) HRP (high risk ): Status: Acute Assessment and plan: Term labor induction. Will monitor progress. Continuous monitoring. Fluid bolus if hyper stim versus terbutaline. No further misoprostol needed. Overall reassuring maternal status. (2) Advanced maternal age (AMA) in : Status: Acute (3) Mother positive for group B Streptococcus colonization: Status: Acute Objective Abnormal lab results 11/19/20 Range/Units 15:13 RBC 3.73 L (3.93-5.22) 10^6/uL Hct 33.2 L (36.0-46.0) % MPV 13.0 H (8.0-11.0) fL Temp Pulse Resp BP 98.4 F 65 18 140/78 11/20/20 00:59 11/20/20 00:58 11/20/20 00:59 11/20/20 00:58 Laboratory Results WBC 8.08 10^3/uL (4.4-10.8) 11/19/20 15:13 RBC 3.73 10^6/uL (3.93-5.22) L 11/19/20 15:13 Hgb 11.2 g/dL (11.2-15.7) 11/19/20 15:13 Hct 33.2 % (36.0-46.0) L 11/19/20 15:13 MCV 89.0 fL (80-95) 11/19/20 15:13 MCH 30.0 pg (27.0-33.0) 11/19/20 15:13 MCHC 33.7 % (32.0-36.0) 11/19/20 15:13 RDW 13.9 % (11.7-14.6) 11/19/20 15:13 Plt Count 147 10^3/uL (130-400) 11/19/20 15:13 MPV 13.0 fL (8.0-11.0) H 11/19/20 15:13 Patient ABO/Rh O Positive 11/19/20 15:13 Antibody Screen Negative 11/19/20 15:13 Subjective Interval history since last seen: Patient seen, has received 2 doses of misoprostol. Has been up on the birthing ball and a rocking chair. heart rate tracing is in the 140s moderate variability. She has had a series of variable decelerations. She is feeling some crampiness that she rates as a 3 out of 10. Uterus is palpating intermittently firm. Not graphing contractions discretely. Baby is moving, no loss of fluid, no vaginal bleeding recent cervical exam per nursing 2 to 3 cm and soft. Results Hemoglobin/Hematocrit: Hgb 11.2 g/dL (11.2-15.7) 11/19/20 15:13 Hct 33.2 % (36.0-46.0) L 11/19/20 15:13 Abnormal Lab Findings: Abnormal Labs 11/19/20 15:13 RBC 3.73 L Hct 33.2 L MPV 13.0 H
[2020-11-20] MEDS: Lactated Ringers 1,000 ML 999 ML IV (01:24)
[2020-11-20] MEDS: Oxytocin/Normal Saline 30 UNIT/500 ML BAG 95 UNITS IV (03:00)
--- NOTE | 2020-11-20 03:21 | W.OBDELIVERY ---
Date of service: 11/20/20 Time of Service: 03:21 OB Labor/ Delivery Information Baby A Delivery Delivery Method: Spontaneaous Presentation: Cephalic Cephalic Position: Vertex Vertex Position: Right Occipital Anterior Cord Description-Baby A: 3 Vessels Cord Description Comment: Long cord Estimated Blood Loss: 100 Delivery Outcome: Liveborn Transferred: Remains with Mother Note: Patient is a 31-year-old female who had labor induction due to term and advanced maternal age. She received 2 doses of misoprostol for cervical ripening and had spontaneous onset of labor. She also received 3 doses of penicillin G for group B strep prophylaxis. She had spontaneous rupture of membranes for clear fluid and rapidly progressed from previous examination of 3 cm to complete and pushing. She did use nitrous oxide for some modicum of pain relief. With good maternal effort in approximately 1 push baby delivered spontaneously in the right occiput anterior position. There is no evidence of nuchal cord. Shoulders followed with ease. Three-vessel cord was noted clamped x2 and cut after approximately 5 minutes of skin to skin with mom. At this point cord blood sample was obtained and placenta delivered spontaneously and was found to be completely intact. On inspection of the perineum, and vagina there was noted to be a second-degree midline perineal laceration which was reapproximated with 3-0 Vicryl suture in a simple interrupted fashion after infiltration of 1% lidocaine. Both mom and baby are stable post delivery. Good bonding observed. Baby skin to skin for breast-feeding. Weight to be obtained at a later time. Providers Doctor: Alda Samayoa Nurse: Mitra Brannon Nurse: Brigid Adames Other: Isabella Parrish RN Labor/Delivery Information Group Beta Strep: Positive Antibiotics Administered: Yes Number of Doses of Antibiotics: 3 Rubella Status: Immune Blood Type: O+ Varicella Immunity: Immune Maternal Complications: None Shoulder Dystocia: No Stages of Labor ROM Baby A: 11/20/20 ROM Baby A: 02:13 Delivery Date-Baby A: 11/20/20 Infant Delivery Time-Baby A: 02:53 Placenta Delivery Date-Baby A: 11/20/20 Placenta Delivery Time-Baby A: 03:00 Labor-Stage 3 Duration: 7 minutes Placenta Status: Delivered Baby A Infant Gender: Male Gestational Status: Term (39-41.6 wks) Score-1 Minute Interval(Baby A) Heart Rate-1 minute: 100 BPM or Greater Respiratory Effort- 1 minute: Slow Respiration/Weak Cry Muscle Tone-1 minute: Active Movement Reflex Response-1 minute: Prompt Response Color-1 minute: Pallor or Cyanosis Total Score-1 minute: 7 Score-5 Minute Interval(Baby A) Heart Rate- 5 minute: 100 BPM or Greater Respiratory Effort-5 minute: Spontaneous/Strong Cry Muscle Tone-5 minute: Active Movement Reflex Response-5 minute: Prompt Response Color-5 minute: Bluish Hands or Feet Total Score- 5 minute: 9 Interventions Repair of Laceration Type: Perineal , Laceration Extension: Second Degree . Sponge Count Correct: Yes , Sharp Count Correct: Yes . Laceration Repair Note: Second-degree midline laceration repaired in the usual fashion after infiltration of 1% lidocaine. Hemostatic post procedure with good cosmetic effect Shoulder Dystocia Delivery Times Date of Delivery of Head: 11/20/20 Time of Delivery of the Head: 02:53
[2020-11-20] MEDS: Hamamelis Leaf/Glycerin 100 EACH BOX PR (06:10)
[2020-11-20] MEDS: Ibuprofen 600 MG TAB PO ×2 (06:10→16:34)
[2020-11-20] MEDS: Lidocaine 1% Multi-Dose 20 ML VIAL IJ (06:12)
[2020-11-20 06:36] LABS: HCT 35.4 % (36.0-46.0); HGB 11.8 g/dL (11.2-15.7); MCH 29.9 pg (27.0-33.0); MCHC 33.3 % (32.0-36.0); MCV 89.8 fL (80-95); MPV 12.7 fL (8.0-11.0); Platelet Count 147 10^3/uL (130-400); RBC 3.94 10^6/uL (3.93-5.22); RDW 13.9 % (11.7-14.6); RDW-SD 45.8 fL
[2020-11-20] MEDS: Levothyroxine 50 MCG TAB PO (07:30)
[2020-11-21] MEDS: Ibuprofen 600 MG TAB PO ×2 (02:13→08:31)
[2020-11-21] MEDS: Levothyroxine 50 MCG TAB PO (06:51)
[2020-11-21] MEDS: Acetaminophen 325 MG TAB 650 MG PO (08:31)
--- NOTE | 2020-11-21 09:08 | DSE_ITS ---
Date of service: 11/21/20 Time of Service: 09:12 DS: Diagnosis Discharge Diagnosis (1) HRP (high risk ): Status: Acute (2) Advanced maternal age (AMA) in : Status: Acute (3) Mother positive for group B Streptococcus colonization: Status: Acute (4) Vaginal delivery: Status: Acute Discharge Plan Disposition Patient Disposition: HOME Condition: Good Discharge Details Reason For Visit: TERM Admit Date/Time: 11/19/20 13:20 Admit Provider: Alda Samayoa Attending Provider: Alda Samayoa Primary Care Provider: Michelle Gallardo Hospital Course Hospital Course: Pt was admitted at term and underwent an IOL for advanced maternal age. on 11/20/20 w/o complications of a viable male infant named Mesha Brown. She was discharged to home of PP1 successfully . Pt and FOB are unsure about future contraception. Plan 2w telemedicine visit and 6w visit with Dr. Samayoa. Pt can stpp checking sugars after discharge. She will have a repeat Glucola test at 6 weeks . She should continue to take her Thyroid medication. A TSH with reflex free T4 will be performed at that time. Home Meds and New Rx's Prescriptions: No Action prenat.vits,herman,est-gprb-xfpqe tablet 1 tab PO DAILY RF: 0 aspirin 81 mg tablet,chewable 81 mg PO DAILY RF: 0 (DME) breast pump Device See Rx Instructions .ROUTE .MEDSUPPLY Qty: 1 RF: 0 levothyroxine [Synthroid] 50 mcg tablet 50 mcg PO DAILY Qty: 30 RF: 3 (DME) blood-glucose meter [Blood Glucose Monitoring] Kit See Rx Instructions .ROUTE .MEDSUPPLY Qty: 1 RF: 0 (DME) Blood Glucose Test Strip See Rx Instructions .ROUTE .MEDSUPPLY Qty: 100 RF: 5 (DME) lancets [OneTouch Delica Lancets] 33 gauge misc See Rx Instructions .ROUTE .MEDSUPPLY Qty: 100 RF: 5 albuterol sulfate 8.5 GM HFA aerosol inhaler 2 puff Inhalation Q6H PRN PRNQty: 1 RF: 0 Discharge Instructions Stand Alone Forms: BC Instructions, BC Post Vaginal Deliver Activity:: Activity as Tolerated Equipment/Supplies:: No Equipment Needed Diet:: As Tolerated Discharge Orders Discharge Orders: Discharge Order (Routine); Ordered 11/21/20 Ordered By: Giulia Elizabeth DS: Summary Status at Discharge Functional status at discharge: independent ambulation Overall status at discharge: patient is progressing back to baseline Mental Status: mental status grossly normal Speech and Movement: speech and movement normal Mood: congruent mood Affect: normal affect Exam Const General: no acute distress Nutritional Appearance: overweight Orientation: alert, awake and oriented x3 Neck Neck: normal visual inspection Resp Effort & Inspection: normal respiratory effort Cardio Pulses: dorsalis pedis present GI Inspection: normal to inspection Palpation: soft and mass (FF@u/1) Rectal Exam - female: deferred Skin General skin exam: no rashes or lesions noted Extrem General: normal to inspection and edema Laterality: bilateral (non-pitting edema. +1) Psych Appearance: grossly normal Mental Status: mental status grossly normal Speech and Movement: speech and movement normal Mood: congruent mood Affect: normal affect Attitude: cooperative Thought Process: normal Thought Content: normal Insight: insight good Judgment: judgment good DS: Data Vitals/I&O Vitals and I&O: Vital Signs Temperature 97.7 F 11/20/20 23:48 Pulse 73 11/20/20 23:48 Pulse Rhythm Regular 11/20/20 16:37 Respiratory Rate 16 11/20/20 23:48 Respiratory Depth Normal 11/20/20 23:52 Blood Pressure 134/84 11/20/20 23:48 Blood Pressure Mean 100 11/20/20 23:48 Pulse Oximetry 98 11/20/20 23:48 Oxygen Delivery Method Room Air 11/19/20 13:37 Oxygen Flow Rate 0 11/19/20 13:37 Pain Level 5 11/21/20 08:31 Comment 11/19/20 19:48 Intake & Output 11/20/20 11/20/20 11/21/20 11:59 23:59 11:59 Intake Total 1000 / 1650 650 / 1650 Output Total Balance 999 / 1649 650 / 1649 Intake: IV 1000 / 1650 650 / 1650 Output: Urine [facility] Medical History (Updated 11/21/20 @ 09:12 by Giulia Elizabeth MD) Advanced maternal age (AMA) in Hip dysplasia HRP (high risk ) Low-lying placenta in second trimester Repeat ultrasound for placentation at 28 weeks Mother positive for group B Streptococcus colonization Vaginal delivery Vaginal delivery 11/20/20.SVD. Reynaldo Zimmer Brown Surgical History History of arthroscopic knee surgery History of hip surgery Family History Mother Mouth cancer Social History Smoking/Tobacco Use Status: Never Smoking risk assessment performed?: Yes Drug use: Never Substance use type: does not use Details: wine daily up until a couple of months ago. 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
[2020-11-21 09:32] VITALS: BP 133/87; PULSE 77; RESP 14; TEMP 36.9
--- NOTE | 2020-11-25 07:41 | PGE_ITS ---
Date of service: 11/18/20 Time of Service: 07:42 Informed Consent Informed Consent: Induction of Labor and Risk,Benefits,Alternatives Discussed Objective Temp Pulse Resp BP Pulse Ox 98.4 F 77 14 133/87 98 11/21/20 09:32 11/21/20 09:32 11/21/20 09:32 11/21/20 09:32 11/20/20 23:48 Laboratory Results WBC 14.30 10^3/uL (4.4-10.8) H D 11/20/20 06:22 RBC 3.94 10^6/uL (3.93-5.22) 11/20/20 06:22 Hgb 11.8 g/dL (11.2-15.7) 11/20/20 06:22 Hct 35.4 % (36.0-46.0) L 11/20/20 06:22 MCV 89.8 fL (80-95) 11/20/20 06:22 MCH 29.9 pg (27.0-33.0) 11/20/20 06:22 MCHC 33.3 % (32.0-36.0) 11/20/20 06:22 RDW 13.9 % (11.7-14.6) 11/20/20 06:22 Plt Count 147 10^3/uL (130-400) 11/20/20 06:22 MPV 12.7 fL (8.0-11.0) H 11/20/20 06:22 SARS-CoV-2 (PCR) Negative (Negative) 11/19/20 14:30 Nasopharyn COVID-19 PCR Not Applicable 11/19/20 14:30 Ref Test Perform Site [facility] lab 11/19/20 14:30 Patient ABO/Rh O Positive 11/19/20 15:13 Antibody Screen Negative 11/19/20 15:13 Subjective Interval history since last seen: Patient presented for labor induction. At that time she was found to be 1 cm, 60% effaced. She had a category 1 nonstress test and received cervical ripening with her first dose of misoprostol. Please note, late entry note. Results Hemoglobin/Hematocrit: Hgb 11.8 g/dL (11.2-15.7) 11/20/20 06:22 Hct 35.4 % (36.0-46.0) L 11/20/20 06:22 Abnormal Lab Findings: Abnormal Labs 11/19/20 11/20/20 15:13 06:22 WBC 14.30 H D RBC 3.73 L Hct 33.2 L 35.4 L MPV 13.0 H 12.7 H
== END 2020-11-21 14:00 | disposition home or self-care (01) | DRG 807 ==
PROVIDERS: Admitting Provider Obstetrics & Gynecology; PCP Family Medicine; Visit Provider Obstetrics & Gynecology
DX: O99.284 Endocrine, nutritional and metabolic diseases complicating childbirth (principal); Z37.0 Single live birth; E03.9 Hypothyroidism, unspecified; O99.824 Streptococcus B carrier state complicating childbirth; O70.1 Second degree perineal laceration during delivery; Z3A.39 39 weeks gestation of pregnancy
CPT/HCPCS: 36415; 85027; 86850; 86900; 86901; NC; U0003; J2540; J3490

== ENCOUNTER 2021-05-30 20:13 | Emergency (ER) | payer BC, MEDICAID, SELFPAY ==
[2021-05-30 20:16] VITALS: BP 142/95; PULSE 100; RESP 18; TEMP 37; O2SAT 96
--- NOTE | 2021-05-30 20:30 | DI.RAD_ITS ---
Exam(s) XR CHEST 2V PA LATERAL EXAM: XR CHEST 2V PA LATERAL CLINICAL HISTORY: cough, fever TECHNIQUE: 2D digital imaging was performed. COMPARISON: CR CHEST 2 VIEWS PA,LAT from 01/25/2016 FINDINGS: MEDIASTINUM: Normal. HEART: Normal. PULMONARY VASCULATURE: Normal. LUNGS: Clear. PLEURAL SPACE: No pleural effusion or pneumothorax. BONE:Within normal limits for the patient's age. OTHER FINDINGS:Normal. IMPRESSION: No acute pulmonary findings. DATA REPOSITORY: RADIATION DOSE DELIVERED:
--- NOTE | 2021-05-30 20:30 | RT.EKG_ITS ---
APPROVED REPORT Exam: Resting ECG Reason for Exam: chest tightness Patient Location: E HR:92 bpm ECG Measurements Heart Rate 92 AXIS IL 149 P 61 QRSd 82 QRS 17 QT 351 T 42 QTc 435 Conclusion Sinus rhythm...normal P axis, V-rate 60- 99 Probable left atrial enlargement...P >50mS, <-0.10mV V1 Normal [place] I have reviewed and interpreted ECG and agree with software generated interpretation.
[2021-05-30 21:09] LABS: Abs Immature Grans 0.04 10^3/uL (0.0-0.06); Absolute Basophil Count 0.09 10^3/uL (0.0-0.2); Absolute Eosinophil Count 0.81 10^3/uL (0.0-0.7); Absolute Lymphocyte Count 3.49 10^3/uL (1.2-3.4); Absolute Monocyte Count 0.38 10^3/uL (0.1-0.8); Absolute Neutrophil Count 3.61 10^3/uL (1.2-6.7); Basophils % 1.1; Eosinophils % 9.6; HCT 42.9 % (36.0-46.0); HGB 14.2 g/dL (11.2-15.7); Immature Grans % 0.5; Lymphocytes % 41.4; MCH 29.9 pg (27.0-33.0); MCHC 33.1 % (32.0-36.0); MCV 90.3 fL (80-95); MPV 11.6 fL (8.0-11.0); Monocytes % 4.5; Neutrophils % 42.9; Nucleated RBC 0 %; Platelet Count 254 10^3/uL (130-400); RBC 4.75 10^6/uL (3.93-5.22); RDW 13.8 % (11.7-14.6); RDW-SD 45.7 fL; WBC 8.42 10^3/uL (4.4-10.8)
[2021-05-30 21:14] VITALS: O2SAT 96
[2021-05-30] MEDS: Albuterol/Ipratropium 3 ML UPD VIAL UPD ×2 (21:14→21:52)
[2021-05-30] MEDS: predniSONE 20 MG TAB (21:15)
[2021-05-30 21:23] LABS: ALT 18 U/L (14-59); AST 14 U/L (15-37); Albumin 3.6 g/dL (3.4-5.0); Alkaline Phosphatase 121 U/L (46-116); Anion Gap 5.8 mmol/L (3-11); BUN 15 mg/dL (7-18); Bilirubin, Total 0.2 mg/dL (0.2-1.0); CO2 24.2 mmol/L (21.0-32.0); CREATININE 0.8 mg/dL (0.55-1.02); Calcium 9.1 mg/dL (8.5-10.1); Chloride 108 mmol/L (98-107); Glucose 89 mg/dL (74-106); Potassium 3.9 mmol/L (3.5-5.1); Sodium 138 mmol/L (136-145); Total Protein 7.8 g/dL (6.4-8.2)
[2021-05-30 21:41] LABS: Troponin I < 0.05 ng/mL (<0.06)
--- NOTE | 2021-05-30 21:43 | DI.VRAD_ITS ---
PROCEDURE INFORMATION: Exam: XR Chest Exam date and time: 05/30/2021 8:38 PM Age: 40 years old Clinical indication: Cough and fever; Patient HX: Cough, fever TECHNIQUE: Imaging protocol: XR of the chest. Views: 2 views. COMPARISON: CR CHEST 2 VIEWS PA,LAT 01/25/2016 2:20 PM FINDINGS: Lungs: Unremarkable. No consolidation. Pleural spaces: Unremarkable. No pleural effusion. No pneumothorax. Heart/Mediastinum: Unremarkable. No cardiomegaly. Bones/joints: Unremarkable. IMPRESSION: No acute findings. Dictated and Authenticated by: Owen Bocanegra MD. Ordering:JERI Andrews MD
[2021-05-30 22:01] LABS: D-Dimer 359 ng/mlFEU (<500)
--- NOTE | 2021-05-30 22:34 | ED.GENADUL_ITS ---
Discharge Plan Disposition Patient Disposition: HOME Condition: Good Discharge Details Clinical Impression: Asthma exacerbation Primary Care Provider: Michelle Gallardo ED Provider: Juliana Aragon Home Meds and New Rx's Prescriptions: New prednisone 20 mg tablet 60 mg PO DAILY 5 Days Qty: 15 RF: 0 Continued prenat.vits,herman,obz-tsfj-rvmdc tablet 1 tab PO DAILY RF: 0 aspirin 81 mg tablet,chewable 81 mg PO DAILY RF: 0 (DME) breast pump Device See Rx Instructions .ROUTE .MEDSUPPLY Qty: 1 RF: 0 etonogestrel-ethinyl estradiol [NuvaRing] 0.12-0.015 mg/24 hr ring 1 vag ring vaginal Q4W Qty: 3 RF: 3 (DME) blood-glucose meter [Blood Glucose Monitoring] Kit See Rx Instructions .ROUTE .MEDSUPPLY Qty: 1 RF: 0 (DME) Blood Glucose Test Strip See Rx Instructions .ROUTE .MEDSUPPLY Qty: 100 RF: 5 (DME) lancets [OneTouch Delica Lancets] 33 gauge misc See Rx Instructions .ROUTE .MEDSUPPLY Qty: 100 RF: 5 levothyroxine [Synthroid] 50 mcg tablet 50 mcg PO DAILY Qty: 30 RF: 3 albuterol sulfate 8.5 GM HFA aerosol inhaler 2 puff Inhalation Q6H PRN PRNQty: 1 RF: 0 Discharge Instructions Instructions: Asthma (ED) Additional Instructions: Use your albuterol inhaler with spacer every 4 hours, 2 puffs for the next several days Take the prednisone as prescribed, you have received a dose this evening, take your next dose tomorrow With new or worsening complaints, I recommend emergency room reevaluation Recheck with your doctor on Tuesday and return earlier should you have new or worsening Discharge Data Discharge Date/Time-TO BE ENTERED AT DEPARTURE: 05/30/21 23:00 Medical Decision Making D-dimer negative, lower suspicion for pulmonary embolism Chest x-ray does not show evidence of infiltrate Diagnostic labs reassuring Patient prednisone Given 2 DuoNeb significant symptomatic improvement, ambulatory without hypoxia Given spacer and albuterol inhaler Prednisone taper Recheck with primary care physician in 1 to 2 days for reevaluation Troponin negative with several weeks of symptoms, EKG without acute pathology, low risk for coronary artery disease without chest pain Return cautions discussed and patient stressed understanding Access patient has bronchitis and this precipitated an asthma exacerbation There is no hypoxia throughout this encounter oxygenation 96% on room air at time of discharge home Afebrile nontoxic in appearance, speaking complete sentences, no respiratory distress Medical Records Medical records reviewed: Yes I reviewed the patient's medical records. Lab Data Lab results reviewed: Yes I reviewed the patient's lab results. HPI General Mode of arrival: ambulatory . Date/Time Provider Initiated Documentation: 05/30/21 20:31 . Limitations to Documentation: no limitations . Information obtained by: patient . HPI Narrative: This 40-year-old female presents with shortness of breath for the past several weeks. She states that she has a history of asthma but this is different. She states she feels as thou gh she cannot take a complete inhalation. She denies any associated chest discomfort. She has been using her inhaler which does help minimally but only lasts approximately half an hour and she is in quite short of breath with exertion. She states that even taking care of the baby has been a challenge. She has not been evaluated for this. She has been coughing for the past several weeks as well, her daughter was reportedly ill 2 weeks ago. Patient was tested for Covid on Tuesday which was negative and also is Covid vaccinated. Denies any calf pain or swelling. Denies history of coagulopathy or tobacco abuse. Denies any early cardiac family history or in self or family. Denies any history of hypertension, hyperlipidemia, illicit drug use. 6 months. Denies chance of , on NuvaRing, started 1 month prior. Related Data Home Medications Medication Instructions Recorded Confirmed albuterol sulfate 2 puff INHALATION Q6H PRN PRN #1 02/18/15 11/20/20 hfa.aer.ad prenat.vits,herman,rmg-rgtz-ikkwq 1 tab PO DAILY 01/24/19 11/20/20 aspirin 81 mg chewable tablet 81 mg PO DAILY 09/02/20 11/20/20 blood sugar diagnostic #100 ea 09/11/20 11/20/20 blood-glucose meter #1 ea 09/11/20 11/20/20 lancets 33 gauge #100 ea 09/11/20 11/20/20 breast pump #1 ea 11/05/20 11/20/20 levothyroxine 50 mcg tablet 50 mcg PO DAILY #30 tab 12/10/20 etonogestrel 0.12 mg-ethinyl 1 vag ring VAGINAL Q4W #3 ea 12/30/20 12/30/20 estradiol 0.015 mg/24 hr vaginal ring prednisone 60 mg PO DAILY 5 Days #15 tab 05/30/21 Previous Rx's Medication Instructions Recorded albuterol sulfate 2 puff INHALATION Q6H PRN PRN #1 02/18/15 hfa.aer.ad blood sugar diagnostic #100 ea 09/11/20 blood-glucose meter #1 ea 09/11/20 lancets 33 gauge #100 ea 09/11/20 breast pump #1 ea 11/05/20 levothyroxine 50 mcg tablet 50 mcg PO DAILY #30 tab 12/10/20 etonogestrel 0.12 mg-ethinyl 1 vag ring VAGINAL Q4W #3 ea 12/30/20 estradiol 0.015 mg/24 hr vaginal ring prednisone 60 mg PO DAILY 5 Days #15 tab 05/30/21 Allergies Allergy/AdvReac Type Severity Reaction Status Date / Time No Known Allergies Allergy Verified 12/02/20 13:20 General Stated Complaint: RespSymp CHALO: 3 Review of Systems All systems reviewed & are unremarkable except as noted in HPI and below PFSH Medical History (Updated 05/30/21 @ 22:39 by MILADIS López) Advanced maternal age (AMA) in Contraception management Hip dysplasia HRP (high risk ) Low-lying placenta in second trimester Repeat ultrasound for placentation at 28 weeks Mother positive for group B Streptococcus colonization Vaginal delivery Vaginal delivery 11/20/20.SVD. Reynaldo Zimmer Brown Surgical History History of arthroscopic knee surgery History of hip surgery Family History Mother Mouth cancer Social History Smoking/Tobacco Use Status: Never Smoking risk assessment performed?: Yes Drug use: Never Substance use type: does not use Details: wine daily up until a couple of months ago. 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 Date GA/Weeks # Outcome Route Wgt Sex Labor Lgth Anesthes ia Location Prov Complic 11/20/20 40 No Successful vaginal Male Dr. Alda Samayoa Exam Const General: cooperative and no acute distress Orientation: alert and oriented x3 Eyes Sclera: sclerae normal Chest Chest: normal inspection of the chest Resp Effort & Inspection: normal respiratory effort Auscultation: clear to auscultation bilaterally Cardio Rate: regular rate Rhythm: regular rhythm Skin General skin exam: no rashes or lesions noted Neuro General: patient alert and patient oriented x3 Extrem Other: no calf tenderness, distal pulses intact Course Vital Signs Vital signs: Vital Signs Temperature 37 C 05/30/21 20:16 Pulse 100 H 05/30/21 20:16 Respiratory Rate 18 05/30/21 20:16 Blood Pressure 142/95 H 05/30/21 20:16 Pulse Oximetry 96 05/30/21 20:16 Temperature 37 C 05/30/21 20:16 Temperature Source Temporal Artery Scan 05/30/21 20:16 Pulse 100 H 05/30/21 20:16 Respiratory Rate 18 05/30/21 20:16 Respiratory Effort Non-Labored 05/30/21 20:20 Blood Pressure 142/95 H 05/30/21 20:16 Blood Pressure Position Sitting 05/30/21 20:16 Pulse Oximetry 96 05/30/21 21:14 Oxygen Delivery Method Room Air 05/30/21 21:14 Oxygen Flow Rate 0 05/30/21 21:14 Pain Level 6 05/30/21 20:16 Lab/Test Results Lab/Test Results: Laboratory Tests Range/Units 05/30/21 05/30/21 05/30/21 21:00 21:00 21:00 WBC (4.4-10.8) 10^3/uL 8.42 RBC (3.93-5.22) 10^6/uL 4.75 Hgb (11.2-15.7) g/dL 14.2 Hct (36.0-46.0) % 42.9 MCV (80-95) fL 90.3 MCH (27.0-33.0) pg 29.9 MCHC (32.0-36.0) % 33.1 RDW (11.7-14.6) % 13.8 Plt Count (130-400) 10^3/uL 254 MPV (8.0-11.0) fL 11.6 H Immature Gran % 0.5 Neutrophils % 42.9 Lymphocytes % 41.4 Monocytes % 4.5 Eosinophils % 9.6 Basophils % 1.1 Nucleated RBC % % 0 Absolute Neutrophils (1.2-6.7) 10^3/uL 3.61 Absolute Lymphocytes (1.2-3.4) 10^3/uL 3.49 H Absolute Monocytes (0.1-0.8) 10^3/uL 0.38 Absolute Eosinophils (0.0-0.7) 10^3/uL 0.81 H Absolute Basophils (0.0-0.2) 10^3/uL 0.09 D-Dimer (<500) ng/mlFEU 359 Sodium (136-145) mmol/L 138 Potassium (3.5-5.1) mmol/L 3.9 Chloride (98-107) mmol/L 108 H Carbon Dioxide (21.0-32.0) mmol/L 24.2 Anion Gap (3-11) mmol/L 5.8 BUN (7-18) mg/dL 15 Creatinine (0.55-1.02) mg/dL 0.8 Estimated GFR/1.73 m2 (mL/min/1.73m2) >= 60.00 Glucose (74-106) mg/dL 89 Calcium (8.5-10.1) mg/dL 9.1 Total Bilirubin (0.2-1.0) mg/dL 0.2 AST (15-37) U/L 14 L ALT (14-59) U/L 18 Alkaline Phosphatase (46-116) U/L 121 H Troponin I (<0.06) ng/mL Total Protein (6.4-8.2) g/dL 7.8 Albumin (3.4-5.0) g/dL 3.6 Range/Units 05/30/21 21:00 WBC (4.4-10.8) 10^3/uL RBC (3.93-5.22) 10^6/uL Hgb (11.2-15.7) g/dL Hct (36.0-46.0) % MCV (80-95) fL MCH (27.0-33.0) pg MCHC (32.0-36.0) % RDW (11.7-14.6) % Plt Count (130-400) 10^3/uL MPV (8.0-11.0) fL Immature Gran % Neutrophils % Lymphocytes % Monocytes % Eosinophils % Basophils % Nucleated RBC % % Absolute Neutrophils (1.2-6.7) 10^3/uL Absolute Lymphocytes (1.2-3.4) 10^3/uL Absolute Monocytes (0.1-0.8) 10^3/uL Absolute Eosinophils (0.0-0.7) 10^3/uL Absolute Basophils (0.0-0.2) 10^3/uL D-Dimer (<500) ng/mlFEU Sodium (136-145) mmol/L Potassium (3.5-5.1) mmol/L Chloride (98-107) mmol/L Carbon Dioxide (21.0-32.0) mmol/L Anion Gap (3-11) mmol/L BUN (7-18) mg/dL Creatinine (0.55-1.02) mg/dL Estimated GFR/1.73 m2 (mL/min/1.73m2) Glucose (74-106) mg/dL Calcium (8.5-10.1) mg/dL Total Bilirubin (0.2-1.0) mg/dL AST (15-37) U/L ALT (14-59) U/L Alkaline Phosphatase (46-116) U/L Troponin I (<0.06) ng/mL < 0.05 Total Protein (6.4-8.2) g/dL Albumin (3.4-5.0) g/dL
[2021-05-30 22:44] VITALS: BP 128/75; PULSE 100; RESP 18; TEMP 37; O2SAT 96
[2021-05-30] MEDS: Albuterol HFA 8 GM 60 PUFF INH IH (22:44)
== END 2021-05-30 23:00 | disposition home or self-care (01) ==
PROVIDERS: Emergency Provider Physician Assistant; PCP Family Medicine
DX: J45.901 Unspecified asthma with (acute) exacerbation (principal); R07.89 Other chest pain
CPT/HCPCS: 36415; 80053; 93005; 94640; 99285; 71046; 84484; 85025; 85379; 93010; J7512; J7620

== ENCOUNTER 2021-08-13 03:16 | Outpatient (CLI) | payer BC, MEDICAID, SELFPAY ==
[2021-08-13 18:24] LABS: TSH (W/Ref FT4) 1.77 uIU/mL (0.36-3.74)
== END 2021-08-13 03:17 | disposition home or self-care (01) ==
LOC: LBO 03:17
PROVIDERS: PCP Family Medicine; Visit Provider Obstetrics & Gynecology
DX: Z86.39 Personal history of other endocrine, nutritional and metabolic disease (principal); O09.511 Supervision of elderly primigravida, first trimester
CPT/HCPCS: 36415; 84443

== ENCOUNTER 2021-08-20 02:42 | Outpatient (CLI) | payer BC, MEDICAID, SELFPAY ==
[2021-08-20 15:26] LABS: Kit/Specimen SENT
[2021-08-20 15:54] LABS: Abs Immature Grans 0.03 10^3/uL (0.0-0.06); Absolute Basophil Count 0.03 10^3/uL (0.0-0.2); Absolute Eosinophil Count 0.27 10^3/uL (0.0-0.7); Absolute Lymphocyte Count 2.17 10^3/uL (1.2-3.4); Absolute Neutrophil Count 4.46 10^3/uL (1.2-6.7); Basophils % 0.4; Eosinophils % 3.7; HCT 39.2 % (36.0-46.0); HGB 12.8 g/dL (11.2-15.7); Immature Grans % 0.4; Lymphocytes % 29.9; MCH 29.4 pg (27.0-33.0); MCHC 32.7 % (32.0-36.0); MCV 90.1 fL (80-95); MPV 12.3 fL (8.0-11.0); Monocytes % 4.1; Neutrophils % 61.5; Nucleated RBC 0 %; Platelet Count 218 10^3/uL (130-400); RBC 4.35 10^6/uL (3.93-5.22); RDW 13.2 % (11.7-14.6); RDW-SD 43.6 fL; WBC 7.26 10^3/uL (4.4-10.8)
[2021-08-20 16:00] LABS: Glucose,1 Hr (Glucola) 154 mg/dL (80-140)
[2021-08-20 16:58] LABS: TSH (W/Ref FT4) 1.63 uIU/mL (0.36-3.74)
[2021-08-22 16:09] LABS: Syphilis Total Ab w/Reflex Nonreactive (Nonreactive)
[2021-08-24 09:31] LABS: Hepatitis B Surface Ag Negative (Negative)
[2021-08-24 10:08] LABS: Hepatitis C Ab w Rflx HCV PCR Negative (Negative)
[2021-08-24 10:17] LABS: HIV-1/2 Ag & Ab Screen Negative (Negative)
[2021-08-24 12:36] LABS: Varicella IgG Antibody Positive (See Note)
[2021-08-24 12:40] LABS: Rubella IgG Ab (UVM) Positive (See Note)
== END 2021-08-20 02:43 | disposition home or self-care (01) ==
LOC: LBO 02:42
PROVIDERS: Advanced Practice Midwife; PCP Family Medicine; Visit Provider Obstetrics & Gynecology
DX: Z34.91 Encounter for supervision of normal pregnancy, unspecified, first trimester (principal); Z36.89 Encounter for other specified antenatal screening
CPT/HCPCS: 36415; 80307; 82950; 86787; 86803; 86850; 86900; 86901; 87340; 87389; 84443; 85025; 86762; 86780

== ENCOUNTER 2021-08-20 15:10 | Outpatient (REF) | payer BC, MEDICAID, SELFPAY ==
[2021-08-20 16:48] LABS: *AMPHETAMINES SCREEN URINE Negative (Negative); *BARBITURATES SCREEN URINE Negative (Negative); *BENZODIAZEPINES SCREEN URINE Negative (Negative); Cannabinoids THC Negative (Negative); Cocaine Screen,Urine Negative (Negative); METHADONE URINE SCREEN Negative (Negative); OPIATES URINE SCREEN Negative (Negative)
[2021-08-20 16:50] LABS: Tricyclic Antidepressants Negative (Negative)
[2021-08-24 15:23] LABS: Chlamydia Result Negative (Negative); GC Result Negative (Negative)
[2021-08-26 07:16] LABS: Buprenorphine Negative ng/mL (Cutoff: 5.0); Norbuprenorphine Negative ng/mL (Cutoff: 2.5)
== END 2021-08-20 15:11 | disposition home or self-care (01) ==
LOC: NCHCN 15:10
PROVIDERS: PCP Family Medicine; Visit Provider Advanced Practice Midwife
DX: E03.9 Hypothyroidism, unspecified; Z34.91 Encounter for supervision of normal pregnancy, unspecified, first trimester; Z11.3 Encounter for screening for infections with a predominantly sexual mode of transmission
CPT/HCPCS: 80307; 87491; 87591; 87086

== ENCOUNTER 2021-09-02 04:33 | Outpatient (CLI) | payer BC, MEDICAID, SELFPAY ==
[2021-09-02 09:39] LABS: Glucose 1 Hour 148 mg/dL
[2021-09-02 11:28] LABS: Glucose 3 Hour 88 mg/dL
== END 2021-09-02 04:34 | disposition home or self-care (01) ==
LOC: LBO 04:33
PROVIDERS: Advanced Practice Midwife; PCP Family Medicine; Visit Provider Advanced Practice Midwife
DX: O09.521 Supervision of elderly multigravida, first trimester (principal); Z3A.13 13 weeks gestation of pregnancy
CPT/HCPCS: 36415; 82951

== ENCOUNTER 2021-11-24 02:34 | Outpatient (CLI) | payer BC, MEDICAID, SELFPAY ==
[2021-11-24 09:56] LABS: Abs Immature Grans 0.05 10^3/uL (0.0-0.06); Absolute Basophil Count 0.03 10^3/uL (0.0-0.2); Absolute Eosinophil Count 0.17 10^3/uL (0.0-0.7); Absolute Lymphocyte Count 1.86 10^3/uL (1.2-3.4); Absolute Monocyte Count 0.24 10^3/uL (0.1-0.8); Absolute Neutrophil Count 6.16 10^3/uL (1.2-6.7); Basophils % 0.4; HCT 36.3 % (36.0-46.0); Immature Grans % 0.6; Lymphocytes % 21.9; MCH 29.9 pg (27.0-33.0); MCHC 33.1 % (32.0-36.0); MCV 90.5 fL (80-95); MPV 11.5 fL (8.0-11.0); Monocytes % 2.8; Neutrophils % 72.3; Nucleated RBC 0 %; Platelet Count 209 10^3/uL (130-400); RBC 4.01 10^6/uL (3.93-5.22); RDW 13.5 % (11.7-14.6); RDW-SD 44.6 fL; WBC 8.51 10^3/uL (4.4-10.8)
[2021-11-24 10:09] LABS: Glucose,1 Hr (Glucola) 180 mg/dL (80-140)
[2021-11-24 11:08] LABS: TSH (W/Ref FT4) 1.83 uIU/mL (0.36-3.74)
== END 2021-11-24 02:35 | disposition home or self-care (01) ==
LOC: LBO 02:34
PROVIDERS: PCP Family Medicine; Visit Provider Obstetrics & Gynecology
DX: O09.522 Supervision of elderly multigravida, second trimester (principal); E03.9 Hypothyroidism, unspecified
CPT/HCPCS: 36415; 82950; 84443; 85025

== ENCOUNTER 2021-12-29 02:10 | Outpatient (CLI) | payer BC, MEDICAID, SELFPAY ==
--- NOTE | 2021-12-29 06:45 | DI.US_ITS ---
Exam(s) US OB ONEL WEIGHT EXAM: US OB ONEL WEIGHT CLINICAL HISTORY: Growth and ONEL,ADVANCED MATERNAL AGE,Z34.92 TECHNIQUE: Ultrasound performed using standard protocol. COMPARISON: US US OB F/U FACIAL/LVOT/RVOT from 09/16/2020 FINDINGS: Ob ultrasound was performed utilizing 3rd trimester protocol. biometry is consistent with gest ational age of 29 weeks 5 days and an EDC of March 11. Estimated weight is 1422 grams which is at the 21st percentile for predicted gestational age. Placenta is posterior with no evidence of placenta previa. There is visually a normal quantity of amniotic fluid and the ONEL is 14. heart rate is 162 BPM. Fetus is in cephalic presentation. IMPRESSION: DATA REPOSITORY:
== END 2021-12-29 02:30 ==
PROVIDERS: PCP Family Medicine; Visit Provider Obstetrics & Gynecology
DX: O09.523 Supervision of elderly multigravida, third trimester (principal); Z3A.29 29 weeks gestation of pregnancy
CPT/HCPCS: 76816

== ENCOUNTER 2022-01-15 18:09 | Outpatient (REF) | payer BC, MEDICAID, SELFPAY | END 2022-01-15 18:10 | disposition home or self-care (01) | LOC: LBN 18:09 | PROVIDERS: PCP Family Medicine; Visit Provider Obstetrics & Gynecology | DX: O09.523 Supervision of elderly multigravida, third trimester (principal) | CPT/HCPCS: 87086 ==

== ENCOUNTER 2022-02-05 09:38 | Outpatient (CLI) | payer BC, MEDICAID, SELFPAY ==
[2022-02-05 09:53] VITALS: BP 121/76; PULSE 76; TEMP 37.2
[2022-02-05 09:57] VITALS: BP 121/76; PULSE 76
[2022-02-05 16:17] VITALS: BP 121/76; PULSE 76; TEMP 37.2
--- NOTE | 2022-02-05 16:17 | W.OBNST ---
Date of service: 02/05/22 Time of Service: 10:00 NST Evaluation Reason for NST Reasons for Nonstress Test: DECREASED MOVEMENT Gestational Age Gestational Age in Weeks and Days: 35 Weeks and 4Days Test and Monitor Explained Test/Monitor Explained: Test Explained, Monitor Explained and Patient Verbalized Understanding Vital Signs Blood Pressure: 121/76 Pulse: 76 Temperature: 99.0 F NST Information Date on Monitor: 02/05/22 Time on Monitor: 09:40 Date off Monitor: 02/05/22 Time off Monitor: 10:18 Total Time on Monitor: 38 NST Interventions: None NST Evaluation Patient States Movement: Present FHR Baseline: 140 Variability: Moderate 6-25 bpm Accelerations: 15x15 Decelerations: None NST Results: Reactive Note NST Note Note: Reactive NST. No other concerns. NST Reviewed and Verified by: Shayy Ignacio
[2022-02-06 06:12] VITALS: BP 141/80; PULSE 100
== END 2022-02-05 10:19 | disposition home or self-care (01) ==
LOC: BCD 09:51 → OBS 09:52
PROVIDERS: PCP Family Medicine; Visit Provider Obstetrics & Gynecology
DX: O36.8130 Decreased fetal movements, third trimester, not applicable or unspecified (principal); Z3A.35 35 weeks gestation of pregnancy
CPT/HCPCS: 59025

== ENCOUNTER 2022-02-10 01:31 | Outpatient (CLI) | payer BC, MEDICAID, SELFPAY ==
--- NOTE | 2022-02-10 08:15 | DI.US_ITS ---
Exam(s) US OB ONEL WEIGHT EXAM: US OB ONEL WEIGHT CLINICAL HISTORY: Growth and ONEL,GEST DIABETES,O24.419. TECHNIQUE: Transabdominal obstetrical ultrasound was performed. COMPARISON: Prior ultrasound 2219 FINDINGS: There is a single viable intrauterine gestation with cardiac activity identified-139 bpm The fetus is presently in breech position . Amniotic fluid: There is a normal amount of amniotic fluid with an ONEL of 11.7cm. Placental location: The placenta is posterior grade 2,with no evidence of placenta previa. Dating parameters place this at approximately 35 weeks and 2 days gestational age, implying TANG of March 15, 2022. BPD measures 34 weeks and 1 day HC measures 35 weeks and 2 days AC measures 35 weeks and 4 days FL measures 35 weeks and 6 days Estimated weight is 2682 gm-5 pounds 15 ounces Fetus is at the 30th percentile on the Hadlock scale. IMPRESSION:: Viable 3rd trimester gestation, as described above. DATA REPOSITORY:
== END 2022-02-10 01:51 ==
PROVIDERS: PCP Family Medicine; Visit Provider Obstetrics & Gynecology
DX: O24.410 Gestational diabetes mellitus in pregnancy, diet controlled (principal); Z3A.35 35 weeks gestation of pregnancy
CPT/HCPCS: 76816

== ENCOUNTER 2022-02-12 16:22 | Outpatient (REF) | payer BC, MEDICAID, SELFPAY ==
[2022-02-12 17:08] LABS: *AMPHETAMINES SCREEN URINE Negative (Negative); *BARBITURATES SCREEN URINE Negative (Negative); *BENZODIAZEPINES SCREEN URINE Negative (Negative); Cannabinoids THC Negative (Negative); Cocaine Screen,Urine Negative (Negative); METHADONE URINE SCREEN Negative (Negative); OPIATES URINE SCREEN Negative (Negative)
[2022-02-12 17:09] LABS: Tricyclic Antidepressants Negative (Negative)
== END 2022-02-12 16:23 | disposition home or self-care (01) ==
LOC: LBN 16:22
PROVIDERS: PCP Family Medicine; Visit Provider Obstetrics & Gynecology Gynecology
DX: Z34.93 Encounter for supervision of normal pregnancy, unspecified, third trimester (principal); Z36.85 Encounter for antenatal screening for Streptococcus B; Z3A.36 36 weeks gestation of pregnancy
CPT/HCPCS: 80307; 87081

== ENCOUNTER 2022-02-16 06:31 | Outpatient (CLI) | payer BC, MEDICAID, SELFPAY ==
[2022-02-16 08:04] VITALS: BP 121/81; PULSE 82
[2022-02-16 08:05] VITALS: BP 121/81; PULSE 82; TEMP 36.6
[2022-02-16 08:31] VITALS: BP 121/81; PULSE 82; TEMP 36.6
--- NOTE | 2022-02-16 09:04 | W.OBNST ---
Date of service: 02/16/22 Time of Service: 09:05 NST Evaluation Reason for NST Reasons for Nonstress Test: ADVANCED MATERNAL AGE Gestational Age Gestational Age in Weeks and Days: 37 Weeks and 1Days Test and Monitor Explained Test/Monitor Explained: Test Explained, Monitor Explained and Patient Verbalized Understanding Vital Signs Blood Pressure: 121/81 Pulse: 82 Temperature: 97.8 F Urine Results Urine Protein: Negative Urine Ketones: Negative Urine Glucose: Negative Urine Blood: Negative NST Information Date on Monitor: 02/16/22 Time on Monitor: 08:02 Date off Monitor: 02/16/22 Time off Monitor: 08:31 Total Time on Monitor: 29 NST Interventions: PO Hydration Contraction Frequency: 0 NST Evaluation Patient States Movement: Present FHR Baseline: 130 Variability: Moderate 6-25 bpm Accelerations: 15x15 Decelerations: None NST Results: Reactive Note NST Note Note: Reactive NST, category 1 strip. Baby is breech. Will schedule external cephalic version at the center at the patient and provider's convenience. NST Reviewed and Verified by: Alda Samayoa
[2022-02-16 09:05] VITALS: BP 121/81; PULSE 82; TEMP 36.6
== END 2022-02-16 08:37 | disposition home or self-care (01) ==
LOC: BCD 06:34 → OBS 07:44
PROVIDERS: PCP Family Medicine; Visit Provider Obstetrics & Gynecology
DX: O09.523 Supervision of elderly multigravida, third trimester (principal); Z3A.37 37 weeks gestation of pregnancy
CPT/HCPCS: 59025

== ENCOUNTER 2022-02-17 07:00 | Observation (INO) | payer BC, MEDICAID, SELFPAY ==
--- NOTE | 2022-02-16 11:02 | W.PM.OBHPL1 ---
Date of service: 02/16/22 Time of Service: 11:02 Assessment and Plan Assessment and plan (1) Breech presentation of fetus: Status: Acute Assessment and plan: Patient will have attempted external cephalic version at 37 weeks and 2 days. Risk benefits and alternatives were discussed at length. She will have baseline laboratory studies including CBC, type and screen, IV, terbutaline given. She will have a COVID prior to her procedure. (2) GDM (gestational diabetes mellitus): Status: Acute (3) Advanced maternal age (AMA) in : Status: Acute OB-HPI Labor/Delivery History of Present Illness Chief Complaint: Other (Breech presentation). TANG Calculator Estimated Delivery Date Method Current WG Current Estimate 03/08/22 LMP (Uncertain) 37w 1d Other Estimates 03/12/22 Ultrasound #1 36w 4d History of Present Expected Delivery Route/Plan Zbigniew Mims (2nd child together). Specific Issues/Plan 1. AMA - reviewed genetic testing options. CF and SMA previously neg. ASA recommended for risk factors (1-2 tabs alternating). Level 2 US scheduled 10/19/21. 1a. Gen path Normal / male, patient informed 1b. Level II US is normal, MFM recommends: weekly NST and ONEL starting at 37 weeks consider IOL at 39 weeks 2. Hypothyroid - no medication currently. TSH - 1.77, 2nd: 1.83, 3rd____ 3. BMI 34 - early GTT 154, 3 hr GTT on 09/02 is nml x4. 4. History of recurrent loss. 5. Yani and her partner are covid vaccinated. 6. History of precipitous delivery after misoprostol. 7. GDM. 28w Glucola 180. No 3hr GTT. Began CBGs.02/10/22: Nl glycemic control 02/10/22. Wt 30%tile. Nl ONEL. Breech 8. GBS +. Will need Abx in labor. Narrative: Patient will be seen on the center on 02/17/2022 for attempted external cephalic version. Risk benefits alternatives discussed the patient. She understands that there is approximately 70% chance of success, with a 30% chance of inability to change baby's position. She also understands, that if there is intolerance of the version, and nonreassuring status, delivery may be undertaken. Risk benefits and alternatives were discussed at length today. Anesthesia informed. OR notified. center aware. Review of Systems All systems reviewed & are unremarkable except as noted in HPI and below Constitutional Constitutional: Reports as per HPI, Denies chills and Denies fever(s) Eyes Eyes: Reports system reviewed and no additional complaints, except as documented Cardiovascular Cardiovascular: Reports system reviewed and no additional complaints, except as documented Respiratory Respiratory: Reports system reviewed and no additional complaints, except as documented Gastrointestinal Gastrointestinal: Reports system reviewed and no additional complaints, except as documented, Denies abdominal pain, Denies diarrhea and Denies vomiting Genitourinary Genitourinary: Reports system reviewed and no additional complaints, except as documented Neurologic Neurologic: Reports system reviewed and no additional complaints, except as documented Psychiatric Psychiatric: Reports system reviewed and no additional complaints, except as documented PFSH All Active Problems (Updated 02/16/22 @ 11:04 by Alda Samayoa DO) Breech presentation of fetus (Acute) GDM (gestational diabetes mellitus) (Acute) Elevated 1 hour test. Patient declines 3 hour. Had GDM in the past. Will test 4 x day, Dietary modifications. surviellance Abnormal glucose tolerance affecting , antepartum (Acute) (Acute) Hypothyroidism (Chronic) Diagnosed after recurrent loss. not taking medication currently Asthma (Chronic) uses inhaler occasionally Second trimester (Acute) Advanced maternal age (AMA) in (Acute) History of thyroid disorder (Acute) Early stage of (Acute) Environmental allergies (Acute 10/28/14) Medical History (Updated 02/16/22 @ 11:04 by Alda Samayoa DO) Advanced maternal age (AMA) in Contraception management Hip dysplasia HRP (high risk ) Surgical History History of arthroscopic knee surgery History of hip surgery Family History (Updated 08/20/21 @ 13:22 by June Jo CNM) Mother Mouth cancer Father Diabetes Substance use disorder Alcohol use disorder Social History Smoking/Tobacco Use Status: Never Smoking risk assessment performed?: Yes Drug use: Never Substance use type: does not use Details: wine daily up until a couple of months ago. 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 Date GA/Weeks # Outcome Route Wgt Sex Labor Lgth Anesthesia Location Prov Complic 08/21/09 36 Yes Successful vaginal 5 lb 7 oz Female local [facility] [place] 08/09/19 Unsuccessful 11/20/20 39 No Successful vaginal 7 lb [address] Alda Samayoa [place] Delivery Date: 08/21/09 Last Updated by: June Jo CNM PROM, pitocin augmentation Delivery Date: 08/09/19 Last Updated by: Shayy Ignacio M.D. 6 1st trimester SAB/MAB 2017-2019. D&C x1 Delivery Date: 11/20/20 Last Updated by: June Jo CNM IOL due to AMA. induction started 4 pm, delivered 8 hours later. precipitous delivery. Meds Allergies and Home Medications Allergies Allergy/AdvReac Type Severity Reaction Status Date / Time No Known Allergies Allergy Verified 02/12/22 13:11 Home Medications Medication Instructions Recorded Confirmed Type albuterol sulfate 90 mcg/actuation 2 puff INHALATION Q6H PRN PRN #1 02/18/15 02/15/22 Rx aerosol inhaler hfa.aer.ad prenat.vits,herman,dtu-jfgx-jznha 1 tab PO DAILY 01/24/19 02/15/22 History alcohol swabs (Alcohol Prep Pads) 1 pad TOPICAL QID #200 ea 11/24/21 02/15/22 Rx blood sugar diagnostic #100 ea 11/24/21 02/15/22 Rx lancets (OneTouch UltraSoft #200 ea 11/24/21 02/15/22 Rx Lancets) Exam Physical Exam Narrative: Will perform physical examination at presentation with bedside ultrasound to confirm breech presentation. Detailed Labor and Delivery Exam Carrington Score: Cervical Points Exam 0 1 2 3 Dilation Closed 1-2cm 3-4 cm 5-6cm Effacement 0-30% 40-50% 60-70% 80% Consistency Firm Medium Soft Station -3 -2 -1,0 +1,+2 Position Posterior Mid Anterior Risk Assessment Risk for Shoulder Dystocia Historical/Initial OB: POSITIVE FOR: Pre- BMI>30; NEGATIVE FOR: Pelvic Abnormality, Previous Shoulder Dystocia or Previous Macrosomia Risk for Pre-Eclampsia Yes, if one or more: NEGATIVE FOR: Hx Pre-E/Gest HTN, Chronic HTN, Multiple Gestation, Pre-gestational DM, Renal Disease, Systemic Lupus or APA Syndrome Yes, if 2 or more: POSITIVE FOR: Age>= 35 yrs and BMI>30; NEGATIVE FOR: Nulliparity, >10yr btwn pregnancies, ethinicty, Mother/Sister w/ Pre-E or Previous IUGR Risk for Post- Hemorrhage Initial: NEGATIVE FOR: Multiple Gestation, Previous PPH, Known Clotting Deficiency, Grand Multiparity or Anticoagulation Risks Reviewed Risks Reviewed Upon Admission: Yes
[2022-02-17] VITALS (28 sets, daily range): BP systolic 113–123; BP diastolic 67–77; PULSE 76–112; RESP 20; TEMP 36.6; O2SAT 96–100; BMI 37.3
[2022-02-17 07:20] LABS: Source Nasal/Nares
--- NOTE | 2022-02-17 07:37 | ANES.PREOP_ITS ---
General Info Date of Service Date Performed: 02/17/22 Height: 5 ft 1.2 in Weight: 90.265 kg Body Mass Index (BMI): 37.3 Surgical Procedure: Operation Date: 02/17/22 07:40 Proposed Procedure Side Surgeon p Version/ Poss. Alda Samayoa DO Meds Allergies and Home Medications Allergies Allergy/AdvReac Type Severity Reaction Status Date / Time No Known Allergies Allergy Verified 02/12/22 13:11 Home Medication Medication Instructions Recorded albuterol sulfate 90 mcg/actuation 2 puff INHALATION Q6H PRN PRN #1 02/18/15 aerosol inhaler hfa.aer.ad prenat.vits,herman,ilu-nzti-bloqn 1 tab PO DAILY 01/24/19 alcohol swabs (Alcohol Prep Pads) 1 pad TOPICAL QID #200 ea 11/24/21 blood sugar diagnostic #100 ea 11/24/21 lancets (OneTouch UltraSoft #200 ea 11/24/21 Lancets) Current Visit Medications: Current Medications Generic Name Dose Route Start Last Admin Trade Name Freq PRN Reason Stop Dose Admin Sodium Chloride 500 mls @ 0 mls/hr 02/17/22 07:00 Saline 500ml Bag IV PRN PRN As Directed IV Miscellaneous Supplies 1 each 02/17/22 07:00 Iv Access IV DIRECTED MATT Sodium Chloride 0 ml 02/17/22 07:00 Normal Saline Flush 10 Ml Syr IVP PRN PRN Terbutaline Sulfate 0.25 mg 02/17/22 07:30 Terbutaline 1 Mg/Ml Vial SC DIRECTED [facility] PFSH Active Problems Active Problems: Problem Status Onset Code Breech presentation of fetus O32.1XX0 GDM (gestational diabetes mellitus) O24.419 Abnormal glucose tolerance affecting , antepartum O99.810 Z34.90 Hypothyroidism E03.9 Asthma J45.909 Second trimester Z34.92 Advanced maternal age (AMA) in History of thyroid disorder Z86.39 Early stage of Z34.90 Environmental allergies 10/28/14 Z91.09 Medical History Medical History (Updated 02/16/22 @ 11:04 by Alda Samayoa DO) Advanced maternal age (AMA) in Contraception management Hip dysplasia HRP (high risk ) Surgical History Surgical History History of arthroscopic knee surgery History of hip surgery Tobacco Smoking/Tobacco Use Status: Never Substance Use Substance use: Never Substance use type: does not use Details: wine daily up until a couple of months ago. Prental History History 9 Para 2 Hx # Term Pregnancies 1 Multiple births Hx # Pregnancies 1 Ectopic pregnancies AB induced Hx Number of Living Children 2 AB spontaneous 6 Past Pregnancies Del. Date GA/Weeks # Outcome Route Wgt Sex Labor Lgth Anesthes ia Location Prov Complic 08/21/09 36 Yes Successful vaginal 2466.409 g Female local [facility] [place] 08/09/19 Unsuccessful 11/20/20 39 No Successful vaginal 3316.894 g Male [address] Dr. Alda Samayoa [place] Delivery Date: 08/21/09 Last Updated by: June Jo CNM PROM, pitocin augmentation Delivery Date: 08/09/19 Last Updated by: Shayy Ignacio M.D. 6 1st trimester SAB/MAB 2017-2019. D&C x1 Delivery Date: 11/20/20 Last Updated by: June Jo CNM IOL due to AMA. induction started 4 pm, delivered 8 hours later. precipitous delivery. Vital Signs and Lab Results Vital Signs Most Recent Vital Signs in EMR: Most Recent Vital Signs Temp Pulse BP Pulse Ox 36.6 C 93 H 123/77 98 02/17/22 07:28 02/17/22 07:28 02/17/22 07:28 02/17/22 07:28 Lab Results Result Diagrams: 02/17/22 07:00 Blood Type / Crossmatch: No Data to Display Complete Blood Count: No Data to Display Complete Metabolic Panel: No Data to Display Liver Function Panel: No Data to Display Coagulation Panel: No Data to Display Cardiac Panel: No Data to Display Arterial Blood Gas: No Data to Display Venous Blood Gas: No Data to Display Pancreas Panel: No Data to Display Thyroid Panel: No Data to Display Infectious Disease: Coronavirus 2019 Source Nasal/Nares 02/17/22 06:35 02/17/22 Blood Cultures: No Data to Display Toxicology Panel: Urine Amphetamines Screen Negative (Negative) 02/12/22 13:35 02/12/22 Urine Benzodiazepines Screen Negative (Negative) 02/12/22 13:35 02/12/22 Urine Barbiturates Screen Negative (Negative) 02/12/22 13:35 02/12/22 Urine Cocaine Screen Negative (Negative) 02/12/22 13:35 02/12/22 Urine Methadone Screen Negative (Negative) 02/12/22 13:35 02/12/22 Urine Opiates Screen Negative (Negative) 02/12/22 13:35 02/12/22 Ur Tricyclic Antidepressants Screen Negative (Negative) 02/12/22 13:35 02/12/22 Ur Tetrahydrocannabinol (THC) Scrn Negative (Negative) 02/12/22 13:35 Panel: No Data to Display Anesthesia Assessment and Plan Anesthesia History Personal History: No History of Anesthesia Complications Family History: No Family History of Anesthesia Complications Exercise Tolerance Exercise Tolerance: Metabolic Equivalents>4 Pertinent Negatives Pertinent Negatives: No Major Cardiovascular Symptoms or Complaints and No Major Pulmonary Symptoms or Complaints Cardiac & Pulmonary Exam Cardiac Exam: Normal S1/S2 Heart Sounds Pulmonary Exam: Clear Bilateral Breath Sounds Implantable Cardiac Device Does patient have a Pacemaker or an ICD?: No Airway Exam Known Difficult Airway: No Mallampati Class: 2 Mouth Opening: Normal (> 3cm) Thyromental Distance: Greater than 3 cm Neck Range of Motion: Full ROM Neck Circumference: Normal Teeth Condition: Normal Dentition ASA Classification ASA Score: ASA 2 Emergency Case?: No NPO Status NPO Status: NPO Clears >2 hours, Solids >8 hours Status Status: Confirmed Anesthesia Plan Resuscitation Status: Full Code Anesthesia Technique: General Anesthesia Airway Planned: Endotracheal Tube Monitors Used: Standard Monitors Preoperative Comments:: Preoperative assessment for version
[2022-02-17 07:46] LABS: HCT 34.2 % (36.0-46.0); HGB 11.2 g/dL (11.2-15.7); MCH 29.6 pg (27.0-33.0); MCHC 32.7 % (32.0-36.0); MCV 90.2 fL (80-95); MPV 12.4 fL (8.0-11.0); Platelet Count 159 10^3/uL (130-400); RBC 3.79 10^6/uL (3.93-5.22); RDW 13.7 % (11.7-14.6); RDW-SD 45.1 fL; WBC 7.97 10^3/uL (4.4-10.8)
[2022-02-17] MEDS: Terbutaline 1 MG/ML VIAL 0.25 MG SC (07:48)
[2022-02-17] MEDS: Normal Saline Flush 10 ML SYR IVP (07:50)
[2022-02-17 07:57] LABS: COVID-19 PCR Negative (Negative)
--- NOTE | 2022-02-17 08:37 | W.OBVERSION ---
Date of service: 02/17/22 Time of Service: 08:37 Version Note Version Note DATE OF PROCEDURE: 02/17/22 PRE-OP DIAGNOSES: Intrauterine at 37 weeks and 2 days, gestational diabetes, breech POST-OP DIAGNOSES: same PROCEDURE: Attempted external cephalic version SURGEON: Alda Samayoa Assisting Surgeon: Giulia Elizabeth Anesthesia: none Complications: None Indications: Breech presentation at 37 weeks and 2 days Procedure Description: After full informed consent was obtained, blood drawn, IV access established, Covid swab performed. Ultrasound performed confirming breech presentation with vertex in the right upper quadrant, posterior placenta, adequate fluid. Patient received terbutaline, 0.25 mg subcu x1. In 3 attempts of an external cephalic version, first do rotation counterclockwise, third attempt rotating clockwise, position was unchanged. Both mom and baby tolerated the procedure without difficulty. heart rate prior to, and post procedure, also intermittently throughout the procedure was 145. She has a category 1, reactive nonstress test prior to, and post procedure. She is having no vaginal bleeding, cramping, or uterine activity post procedure. All findings were discussed. We will proceed with primary section after 39 weeks, if position is still breech. Pre/Post Procedure NST Pre-Procedure NST Time on Monitor: 32 Contraction Frequency: 0 Patient States Movement: Present FHR Baseline: 135 Variability: Moderate 6-25 bpm Decelerations: None NST Results: Reactive Post Procedure NST Contraction Frequency: None Patient States Movement: Present FHR Baseline: 145 Variability: Moderate 6-25 bpm Decelerations: None NST Results: Reactive
--- NOTE | 2022-02-17 08:41 | W.PM.DS.N ---
Date of service: 02/17/22 Time of Service: 08:41 DS: Diagnosis Discharge Diagnosis (1) Breech presentation of fetus: Status: Acute Asessment and Plan: Persistent breech presentation. We will schedule primary section at 39 weeks (2) GDM (gestational diabetes mellitus): Status: Acute Asessment and Plan: Continue monitoring sugars, diet. (3) Advanced maternal age (AMA) in : Status: Acute Asessment and Plan: Appropriate surveillance, twice weekly nonstress testing Discharge Plan Disposition Condition: Good Discharge Details Reason For Visit: Breech Admit Date/Time: 02/17/22 07:00 Admit Provider: Alda Samayoa Attending Provider: Alda Samayoa Primary Care Provider: Michelle Gallardo [facility] Course Hospital Course: Patient was admitted for attempted external cephalic version. She had baseline laboratory studies, IV access and received terbutaline. Version was unsuccessful. She had a reactive nonstress test prior to, appropriate heart rate during, and reactive nonstress test after her procedure. She was discharged home to continue surveillance. If she is still breech at 39 weeks, scheduled repeat section will be performed. Home Meds and New Rx's Prescriptions: No Action prenat.vits,herman,aot-apaa-ramvc tablet 1 tab PO DAILY 0RF (DME) blood sugar diagnostic Strip See Rx Instructions .ROUTE .MEDSUPPLY Qty: 100 3RF Rx Instructions: As directed QID testing (DME) lancets [OneTouch UltraSoft Lancets] Misc See Rx Instructions .ROUTE .MEDSUPPLY Qty: 200 2RF Rx Instructions: As directed alcohol swabs [Alcohol Prep Pads] Pads, Medicated 1 pad topical QID Qty: 200 2RF albuterol sulfate 8.5 GM HFA aerosol inhaler 2 puff Inhalation Q6H PRN PRNQty: 1 0RF Discharge Instructions Activity:: Activity as Tolerated Equipment/Supplies:: Blood Glucose Monitor Diet:: As Tolerated DS: Summary Time Spent with Patient providing and/or coordinating discharge services: Less than 30 minutes Status at Discharge Functional status at discharge: independent ambulation Overall status at discharge: patient is back to baseline Mental Status: mental status grossly normal Speech and Movement: speech and movement normal Mood: congruent mood Affect: normal affect Exam Psych Mental Status: mental status grossly normal Speech and Movement: speech and movement normal Mood: congruent mood Affect: normal affect DS: Data Vitals/I&O Vitals and I&O: Vital Signs Temperature 97.9 F 02/17/22 07:28 Pulse 84 02/17/22 08:39 Respiratory Rate 20 02/17/22 07:25 Blood Pressure 123/77 02/17/22 07:28 Blood Pressure Mean 92 02/17/22 07:28 Pulse Oximetry 97 02/17/22 08:39 Intake & Output 02/16/22 02/16/22 02/17/22 11:59 23:59 11:59 Weight 199 lb Data Completed and Pending Labs on day of discharge: Labs from last 24 hours 02/17/22 02/17/22 02/17/22 07:36 07:36 06:35 WBC 7.97 RBC 3.79 L Hgb 11.2 Hct 34.2 L MCV 90.2 MCH 29.6 MCHC 32.7 RDW 13.7 Plt Count 159 MPV 12.4 H COVID-19 Source Nasal/Nares SARS-CoV-2 (PCR) Negative Patient ABO/Rh O Positive Antibody Screen NEGATIVE PFSH All Active Problems (Updated 02/16/22 @ 11:04 by Alda Samayoa DO) Breech presentation of fetus (Acute) GDM (gestational diabetes mellitus) (Acute) Elevated 1 hour test. Patient declines 3 hour. Had GDM in the past. Will test 4 x day, Dietary modifications. surviellance Abnormal glucose tolerance affecting , antepartum (Acute) (Acute) Hypothyroidism (Chronic) Diagnosed after recurrent loss. not taking medication currently Asthma (Chronic) uses inhaler occasionally Second trimester (Acute) Advanced maternal age (AMA) in (Acute) History of thyroid disorder (Acute) Early stage of (Acute) Environmental allergies (Acute 10/28/14) Medical History (Updated 02/16/22 @ 11:04 by Alda Samayoa DO) Advanced maternal age (AMA) in Contraception management Hip dysplasia HRP (high risk ) Surgical History History of arthroscopic knee surgery History of hip surgery Family History (Updated 08/20/21 @ 13:22 by June Jo CNM) Mother Mouth cancer Father Diabetes Substance use disorder Alcohol use disorder Social History Smoking/Tobacco Use Status: Never Smoking risk assessment performed?: Yes Drug use: Never Substance use type: does not use Details: wine daily up until a couple of months ago. 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 Date GA/Weeks # Outcome Route Wgt Sex Labor Lgth Anesthesia Location Prov Complic 08/21/09 36 Yes Successful vaginal 5 lb 7 oz Female local [facility] [place] 08/09/19 Unsuccessful 11/20/20 39 No Successful vaginal 7 lb [address] Alda Samayoa [place] Delivery Date: 08/21/09 Last Updated by: June Jo CNM PROM, pitocin augmentation Delivery Date: 08/09/19 Last Updated by: Shayy Ignacio M.D. 6 1st trimester SAB/MAB 2017-2019. D&C x1 Delivery Date: 11/20/20 Last Updated by: June Jo CNM IOL due to AMA. induction started 4 pm, delivered 8 hours later. precipitous delivery.
--- NOTE | 2022-02-17 10:39 | W.OBNST ---
Date of service: 02/17/22 Time of Service: 10:39 NST Evaluation Reason for NST Reasons for Nonstress Test: OTHER, SEE COMMENT Reason for NST Other: Version Gestational Age Gestational Age in Weeks and Days: 37 Weeks and 2Days Test and Monitor Explained Test/Monitor Explained: Test Explained, Monitor Explained and Patient Verbalized Understanding NST Information Date on Monitor: 02/17/22 Time on Monitor: 06:56 Date off Monitor: 02/17/22 Time off Monitor: 07:28 Total Time on Monitor: 32 NST Interventions: None Contraction Frequency: 0 NST Evaluation Patient States Movement: Present FHR Baseline: 135 Variability: Moderate 6-25 bpm Accelerations: 15x15 Decelerations: None NST Results: Reactive Note NST Note Note: Reactive NST, category 1 strip both pre and post external cephalic version NST Reviewed and Verified by: Alda Samayoa
== END 2022-02-17 09:15 | disposition home or self-care (01) ==
PROVIDERS: Admitting Provider Obstetrics & Gynecology; PCP Family Medicine; Visit Provider Obstetrics & Gynecology
DX: O32.1XX0 Maternal care for breech presentation, not applicable or unspecified (principal); O09.523 Supervision of elderly multigravida, third trimester; Z3A.37 37 weeks gestation of pregnancy; O99.283 Endocrine, nutritional and metabolic diseases complicating pregnancy, third trimester; E03.9 Hypothyroidism, unspecified; O99.820 Streptococcus B carrier state complicating pregnancy; O99.513 Diseases of the respiratory system complicating pregnancy, third trimester; J45.909 Unspecified asthma, uncomplicated
CPT/HCPCS: 59412; 85027; 86850; 86900; 86901; 87635; 96372

== ENCOUNTER 2022-02-19 06:54 | Outpatient (CLI) | payer BC, MEDICAID, SELFPAY ==
[2022-02-19 08:33] VITALS: BP 112/77; PULSE 75; TEMP 36.8
[2022-02-19 11:06] VITALS: BP 112/77; PULSE 75; TEMP 36.8
--- NOTE | 2022-02-19 11:06 | W.OBNST ---
Date of service: 02/19/22 Time of Service: 11:06 NST Evaluation Reason for NST Reasons for Nonstress Test: ADVANCED MATERNAL AGE Gestational Age Gestational Age in Weeks and Days: 37 Weeks and 2Days Test and Monitor Explained Test/Monitor Explained: Test Explained and Monitor Explained Vital Signs Blood Pressure: 112/77 Pulse: 75 Temperature: 98.2 F NST Information Date on Monitor: 02/19/22 Time on Monitor: 08:06 Date off Monitor: 02/19/22 Time off Monitor: 08:34 Total Time on Monitor: 28 NST Interventions: PO Hydration NST Evaluation Patient States Movement: Present FHR Baseline: 135 Variability: Moderate 6-25 bpm Accelerations: 15x15 Decelerations: None NST Results: Reactive Note NST Note Note: Reactive NST, category 1 strip. Surgical consent signed. scheduled. NST Reviewed and Verified by: Alda Samayoa
== END 2022-02-19 08:38 | disposition home or self-care (01) ==
LOC: BCD 06:55 → OBS 08:01
PROVIDERS: PCP Family Medicine; Visit Provider Obstetrics & Gynecology
DX: O09.523 Supervision of elderly multigravida, third trimester (principal); Z3A.37 37 weeks gestation of pregnancy
CPT/HCPCS: 59025

== ENCOUNTER 2022-02-23 05:25 | Outpatient (CLI) | payer BC, MEDICAID, SELFPAY ==
[2022-02-23 12:44] VITALS: BP 121/76; PULSE 81
[2022-02-23 12:53] VITALS: BP 121/76; PULSE 81
[2022-02-23 13:05] VITALS: BP 121/76; PULSE 81; TEMP 36.6
--- NOTE | 2022-02-23 13:24 | W.OBNST ---
Date of service: 02/23/22 Time of Service: 13:24 NST Evaluation Reason for NST Reasons for Nonstress Test: GDM-INSULIN and ADVANCED MATERNAL AGE Gestational Age Gestational Age in Weeks and Days: 38 Weeks and 1Days Test and Monitor Explained Test/Monitor Explained: Test Explained, Monitor Explained and Patient Verbalized Understanding Vital Signs Blood Pressure: 121/76 Pulse: 81 Temperature: 97.9 F Urine Results Urine Protein: Negative Urine Ketones: Negative Urine Glucose: Negative Urine Blood: Negative NST Information Date on Monitor: 02/23/22 Time on Monitor: 12:44 Date off Monitor: 02/23/22 Time off Monitor: 13:04 Total Time on Monitor: 20 NST Interventions: PO Hydration Contraction Frequency: 0 NST Evaluation Patient States Movement: Present FHR Baseline: 130 Variability: Moderate 6-25 bpm Accelerations: 15x15 Decelerations: None NST Results: Reactive Note NST Note Note: Patient seen in the center for nonstress test and visit. Category 1, reactive NST. Bedside ultrasound performed confirming breech presentation that is persistent. Follow-up for twice-weekly nonstress testing. Scheduled primary section at 39 weeks and 2 days. NST Reviewed and Verified by: Alda Samayoa
[2022-02-23 13:25] VITALS: BP 121/76; PULSE 81; TEMP 36.6
== END 2022-02-23 13:08 | disposition home or self-care (01) ==
LOC: BCD 05:26 → OBS 12:40
PROVIDERS: PCP Family Medicine; Visit Provider Obstetrics & Gynecology Gynecology
DX: O09.523 Supervision of elderly multigravida, third trimester (principal); O32.1XX0 Maternal care for breech presentation, not applicable or unspecified; O24.419 Gestational diabetes mellitus in pregnancy, unspecified control; Z3A.38 38 weeks gestation of pregnancy
CPT/HCPCS: 59025

== ENCOUNTER 2022-02-26 06:31 | Outpatient (CLI) | payer BC, MEDICAID, SELFPAY ==
[2022-02-26 07:49] VITALS: BP 112/71; PULSE 78; TEMP 37
[2022-02-26 08:12] VITALS: BP 112/71; PULSE 78
--- NOTE | 2022-02-26 13:13 | W.OBNST ---
Date of service: 02/26/22 Time of Service: 08:30 NST Evaluation Reason for NST Reasons for Nonstress Test: ADVANCED MATERNAL AGE Gestational Age Gestational Age in Weeks and Days: 38 Weeks and 4Days Test and Monitor Explained Test/Monitor Explained: Test Explained, Monitor Explained and Patient Verbalized Understanding Vital Signs Blood Pressure: 112/71 Pulse: 78 Temperature: 98.6 F NST Information Date on Monitor: 02/26/22 Time on Monitor: 07:53 NST Interventions: PO Hydration NST Evaluation Patient States Movement: Present FHR Baseline: 140 Variability: Moderate 6-25 bpm Accelerations: 15x15 Decelerations: None NST Results: Reactive Note NST Note Note: Pt 38.4wks with reactive NST. baby still breech. PCS next tuesday. NST Reviewed and Verified by: Shayy Ignacio
[2022-02-26 13:14] VITALS: BP 112/71; PULSE 78; TEMP 37
== END 2022-02-26 08:38 | disposition home or self-care (01) ==
LOC: BCD 06:31 → OBS 07:47
PROVIDERS: PCP Family Medicine; Visit Provider Obstetrics & Gynecology
DX: O09.523 Supervision of elderly multigravida, third trimester (principal); O32.1XX0 Maternal care for breech presentation, not applicable or unspecified; Z3A.38 38 weeks gestation of pregnancy
CPT/HCPCS: 59025

== ENCOUNTER 2022-03-02 07:11 | Outpatient (CLI) | payer BC, MEDICAID, SELFPAY ==
[2022-03-02 08:17] VITALS: BP 123/74; PULSE 98
[2022-03-02 11:57] VITALS: BP 123/74; PULSE 98
--- NOTE | 2022-03-02 11:57 | W.OBNST ---
Date of service: 03/02/22 Time of Service: 11:57 NST Evaluation Reason for NST Reasons for Nonstress Test: ADVANCED MATERNAL AGE Gestational Age Gestational Age in Weeks and Days: 39 Weeks and 1Days Test and Monitor Explained Test/Monitor Explained: Test Explained and Monitor Explained Vital Signs Blood Pressure: 123/74 Pulse: 98 NST Information Date on Monitor: 03/02/22 Time on Monitor: 07:50 Date off Monitor: 03/02/22 Time off Monitor: 08:20 Total Time on Monitor: 30 NST Interventions: None NST Evaluation Patient States Movement: Present FHR Baseline: 140 Variability: Moderate 6-25 bpm Accelerations: 15x15 Decelerations: None NST Results: Reactive Note NST Note Note: Patient seen in the office today for surveillance due to advanced maternal age and gestational diabetes. She is scheduled for a primary section due to breech presentation tomorrow. All questions were answered. visit performed. NST Reviewed and Verified by: Alda Samayoa
== END 2022-03-02 08:20 | disposition home or self-care (01) ==
LOC: BCD 07:12 → OBS 08:12
PROVIDERS: PCP Family Medicine; Visit Provider Obstetrics & Gynecology
DX: O24.410 Gestational diabetes mellitus in pregnancy, diet controlled (principal); O09.523 Supervision of elderly multigravida, third trimester; O32.1XX0 Maternal care for breech presentation, not applicable or unspecified; Z3A.39 39 weeks gestation of pregnancy
CPT/HCPCS: 59025

== ENCOUNTER 2022-03-03 08:30 | Inpatient (IN) | payer BC, MEDICAID, SELFPAY ==
--- NOTE | 2022-03-02 11:58 | HPE_ITS ---
Date of service: 03/02/22 Time of Service: 11:58 Assessment and Plan Assessment and plan (1) Advanced maternal age (AMA) in : Status: Acute Assessment and plan: Is a 41-year-old female multigravid who is at 39 weeks and 2 days. She has gestational diabetes which is well controlled at this point. She has been in surveillance for the previous 2 mentioned conditions. She has had a reactive, category 1 nonstress test. She is noted to be in the breech presentation, and has had a failed external cephalic version. She presents today for primary low-transverse section. Risk benefits and alternatives of procedure were explained to the patient in full informed consent was obtained. She understands the risk of infection, bleeding, injury to surrounding organs, risk of anesthesia. The plan will be for regional anesthesia with the spinal followed by her section. All questions were answered. We did have a conversation regarding contraceptive therapy, and at this point, she does not desire tubal ligation, though would like long-acting reversible contraceptive therapy. She will also need a 2-hour glucose tolerance test at her 6-week checkup. (2) GDM (gestational diabetes mellitus): Status: Acute (3) Breech presentation of fetus: Status: Acute (4) Hypothyroidism: Status: Chronic (5) Asthma: Status: Chronic OB-HPI Labor/Delivery History of Present Illness Chief Complaint: Scheduled Section (Breech presentation) , Inidcation for Scheduled : Unsuccessful Version and Position , Position: Breech.. TANG Calculator Estimated Delivery Date Method Current WG Current Estimate 03/08/22 LMP (Uncertain) 39w 1d Other Estimates 03/12/22 Ultrasound #1 38w 4d History of Present Expected Delivery Route/Plan Zbigniew Mims (2nd child together). Specific Issues/Plan 1. AMA - reviewed genetic testing options. CF and SMA previously neg. ASA recommended for risk factors (1-2 tabs alternating). Level 2 US scheduled 10/19/21. 1a. Gen path Normal / male, patient informed 1b. Level II US is normal, [facility] recommends: weekly NST and ONEL starting at 37 2. Hypothyroid - no medication currently. TSH - 1.77, 2nd: 1.83 3. BMI 34 - early GTT 154, 3 hr GTT on 09/02 is nml x4. 4. History of recurrent loss. 5. Yani and her partner are covid vaccinated. 6. History of precipitous delivery after misoprostol. 7. GDM. 28w Glucola 180. No 3hr GTT. Began CBGs.02/10/22: Nl glycemic control 02/10/22. Wt 30%tile. Nl ONEL. Breech 8. GBS +. Will need Abx in labor. 9. Breech presentation: failed ECV. Planned PCS Narrative: Patient is a 41-year-old multigravid at 39 weeks and 2 days for primary section due to breech. She had a prior external cephalic version attempt which was not successful. Risk benefits and alternatives of delivery were explained to the patient and full informed consent was obtained. She will undergo a primary section for breech presentation on 03/03/2022. Informed Consent Informed Consent: Section Delivery Review of Systems All systems reviewed & are unremarkable except as noted in HPI and below Constitutional Constitutional: Reports as per HPI, Denies chills and Denies fever(s) Eyes Eyes: Reports system reviewed and no additional complaints, except as documented Cardiovascular Cardiovascular: Reports system reviewed and no additional complaints, except as documented Respiratory Respiratory: Reports system reviewed and no additional complaints, except as documented Gastrointestinal Gastrointestinal: Reports system reviewed and no additional complaints, except as documented, Denies abdominal pain, Denies diarrhea and Denies vomiting Genitourinary Genitourinary: Reports system reviewed and no additional complaints, except as documented Neurologic Neurologic: Reports system reviewed and no additional complaints, except as documented Psychiatric Psychiatric: Reports system reviewed and no additional complaints, except as documented PFSH All Active Problems (Updated 02/16/22 @ 11:04 by Alda Samayoa DO) Breech presentation of fetus (Acute) GDM (gestational diabetes mellitus) (Acute) Elevated 1 hour test. Patient declines 3 hour. Had GDM in the past. Will test 4 x day, Dietary modifications. surviellance Abnormal glucose tolerance affecting , antepartum (Acute) (Acute) Hypothyroidism (Chronic) Diagnosed after recurrent loss. not taking medication currently Asthma (Chronic) uses inhaler occasionally Second trimester (Acute) Advanced maternal age (AMA) in (Acute) History of thyroid disorder (Acute) Early stage of (Acute) Environmental allergies (Acute 10/28/14) Medical History (Updated 02/16/22 @ 11:04 by Alda Samayoa DO) Advanced maternal age (AMA) in Contraception management Hip dysplasia HRP (high risk ) Surgical History History of arthroscopic knee surgery History of hip surgery Family History (Updated 08/20/21 @ 13:22 by June Jo CNM) Mother Mouth cancer Father Diabetes Substance use disorder Alcohol use disorder Social History Smoking/Tobacco Use Status: Never Smoking risk assessment performed?: Yes Drug use: Never Substance use type: does not use Details: wine daily up until a couple of months ago. 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 Date GA/Weeks # Outcome Route Wgt Sex Labor Lgth Anesthes ia Location Prov Complic 08/21/09 36 Yes Successful vaginal 5 lb 7 oz Female local [facility] [place] 08/09/19 Unsuccessful 11/20/20 39 No Successful vaginal 7 lb 5 oz [address] Alda Samayoa [place] Delivery Date: 08/21/09 Last Updated by: June Jo CNM PROM, pitocin augmentation Delivery Date: 08/09/19 Last Updated by: Shayy Ignacio M.D. 6 1st trimester SAB/MAB 2017-2019. D&C x1 Delivery Date: 11/20/20 Last Updated by: June Jo CNM IOL due to AMA. induction started 4 pm, delivered 8 hours later. precipitous delivery. Meds Allergies and Home Medications Allergies Allergy/AdvReac Type Severity Reaction Status Date / Time No Known Allergies Allergy Verified 02/12/22 13:11 Home Medications Medication Instructions Recorded Confirmed Type albuterol sulfate 90 mcg/actuation 2 puff INHALATION Q6H PRN PRN #1 02/18/15 03/02/22 Rx aerosol inhaler hfa.aer.ad prenat.vits,herman,bmf-timp-gibrp 1 tab PO DAILY 01/24/19 03/02/22 History alcohol swabs (Alcohol Prep Pads) 1 pad TOPICAL QID #200 11/24/21 03/02/22 Rx blood sugar diagnostic #100 11/24/21 03/02/22 Rx lancets (OneTouch UltraSoft #200 11/24/21 03/02/22 Rx Lancets) Exam Physical Exam Vital Signs Reviewed: Yes Constitutional Constitutional: no acute distress and average body habitus Detailed Labor and Delivery Exam Position: Other (Breech) Carrington Score: Cervical Points Exam 0 1 2 3 Dilation Closed 1-2cm 3-4 cm 5-6cm Effacement 0-30% 40-50% 60-70% 80% Consistency Firm Medium Soft Station -3 -2 -1,0 +1,+2 Position Posterior Mid Anterior Amniotic Membrane Status: Intact Contraction Frequency(min): None Fetus A Heart Rate Baseline: 145 Monitor Accelerations: 15 X 15 Monitor Decelerations: None Variability: Moderate (6-25 BPM) Presentation: Breech Categories: Category I Est. Weight: 8 lb HEENT Exam HEENT Exam: Normal Neck Exam Neck Exam: Normal Respiratory Exam Respiratory Exam: Normal Detailed Respiratory Exam Respiratory: Present CTA bilaterally Cardiovascular Exam Cardiovascular Exam: Normal Detail Cardiovascular Exam Cardiovascular: Present RRR, S1 and S2; Absent murmur Extremities Exam Extremities Exam: Normal Skin Exam Skin Exam: Normal Risk Assessment Risk for Shoulder Dystocia Historical/Initial OB: POSITIVE FOR: Pre- BMI>30; NEGATIVE FOR: Pelvic Abnormality, Previous Shoulder Dystocia or Previous Macrosomia Risk for Pre-Eclampsia Yes, if one or more: NEGATIVE FOR: Hx Pre-E/Gest HTN, Chronic HTN, Multiple Gestation, Pre-gestational DM, Renal Disease, Systemic Lupus or APA Syndrome Yes, if 2 or more: POSITIVE FOR: Age>= 35 yrs and BMI>30; NEGATIVE FOR: Nulliparity, >10yr btwn pregnancies, ethinicty, Mother/Sister w/ Pre-E or Previous IUGR Risk for Post- Hemorrhage Initial: NEGATIVE FOR: Multiple Gestation, Previous PPH, Known Clotting Deficiency, Grand Multiparity or Anticoagulation Risks Reviewed Risks Reviewed Upon Admission: Yes
[2022-03-03] VITALS (12 sets, daily range): BP systolic 97–119; BP diastolic 54–80; PULSE 64–83; RESP 16–32; TEMP 36.8–37; O2SAT 97–100; BMI 36.4
[2022-03-03 08:48] LABS: Source Nasal/Nares
[2022-03-03] MEDS: Lactated Ringers 1,000 ML 125 ML IV (09:07)
[2022-03-03] MEDS: ceFAZolin 2 GM/50 ML BAG IVPB (09:07)
--- NOTE | 2022-03-03 09:30 | ANES.PREOP_ITS ---
General Info Date of Service Date Performed: 03/03/22 Height: 5 ft 2 in Weight: 90.435 kg Body Mass Index (BMI): 36.4 Surgical Procedure: Operation Date: 03/03/22 10:10 Proposed Procedure Side Surgeon p Section Alda Samayoa DO s Tubal Ligation Bilateral Alda Samayoa DO Meds Allergies and Home Medications Allergies Allergy/AdvReac Type Severity Reaction Status Date / Time No Known Allergies Allergy Verified 02/12/22 13:11 Home Medication Medication Instructions Recorded albuterol sulfate 90 mcg/actuation 2 puff INHALATION Q6H PRN PRN #1 02/18/15 aerosol inhaler hfa.aer.ad prenat.vits,herman,gwa-dcme-dwzpr 1 tab PO DAILY 01/24/19 alcohol swabs (Alcohol Prep Pads) 1 pad TOPICAL QID #200 ea 11/24/21 blood sugar diagnostic #100 ea 11/24/21 lancets (OneTouch UltraSoft #200 ea 11/24/21 Lancets) Current Visit Medications: Current Medications Generic Name Dose Route Start Last Admin Trade Name Freq PRN Reason Stop Dose Admin Citric Acid/Sodium Citrate 30 ml 03/03/22 08:00 Sodium Citrate 30 Ml Cup PO 03/03/22 23:59 PREOP MATT Ringer's Solution 1,000 mls @ 200 mls/hr 03/03/22 07:15 03/03/22 09:07 IV 125 mls/hr INFUSION MATT Administration Cefazolin Sodium/Dextrose 2 gm in 50 mls @ 100 mls/hr 03/03/22 07:15 03/03/22 09:07 Ancef Duplex IVPB 03/03/22 23:59 100 mls/hr PREOP MATT Administration Azithromycin 500 mg/ Sodium 250 mls @ 250 mls/hr 03/03/22 07:15 Chloride IVPB 03/03/22 23:59 PREOP MATT Sodium Chloride 500 mls @ 0 mls/hr 03/03/22 07:07 Saline 500ml Bag IV PRN PRN As Directed IV Miscellaneous Supplies 1 each 03/03/22 07:15 Iv Access IV DIRECTED MATT Sodium Chloride 0 ml 03/03/22 07:07 Normal Saline Flush 10 Ml Syr IVP PRN PRN PFSH Active Problems Active Problems: Problem Status Onset Code Breech presentation of fetus O32.1XX0 GDM (gestational diabetes mellitus) O24.419 Abnormal glucose tolerance affecting , antepartum O99.810 Z34.90 Hypothyroidism E03.9 Asthma J45.909 Second trimester Z34.92 Advanced maternal age (AMA) in History of thyroid disorder Z86.39 Early stage of Z34.90 Environmental allergies 10/28/14 Z91.09 Medical History Medical History (Updated 02/16/22 @ 11:04 by Alda Samayoa DO) Advanced maternal age (AMA) in Contraception management Hip dysplasia HRP (high risk ) Surgical History Surgical History History of arthroscopic knee surgery History of hip surgery Tobacco Smoking/Tobacco Use Status: Never Substance Use Substance use: Never Substance use type: does not use Details: wine daily up until a couple of months ago. Prental History History 9 Para 2 Hx # Term Pregnancies 1 Multiple births Hx # Pregnancies 1 Ectopic pregnancies AB induced Hx Number of Living Children 2 AB spontaneous 6 Past Pregnancies Del. Date GA/Weeks # Outcome Route Wgt Sex Labor Lgth Anesthes ia Location Prov Complic 08/21/09 36 Yes Successful vaginal 2466.409 g Female local [facility] 08/09/19 Unsuccessful 11/20/20 39 No Successful vaginal 3316.[address] Male [address] Alda Samayoa [place] Delivery Date: 08/21/09 Last Updated by: June Jo CNM PROM, pitocin augmentation Delivery Date: 08/09/19 Last Updated by: Shayy Ignacio M.D. 6 1st trimester SAB/MAB 2017-early 2019. D&C x1 Delivery Date: 11/20/20 Last Updated by: June Jo CNM IOL due to AMA. induction started 4 pm, delivered 8 hours later. precipitous delivery. Vital Signs and Lab Results Vital Signs Most Recent Vital Signs in EMR: Most Recent Vital Signs Temp Pulse Resp BP Pulse Ox 37 C 83 16 119/80 98 03/03/22 09:11 03/03/22 09:11 03/03/22 09:11 03/03/22 09:11 03/03/22 09:11 Lab Results Result Diagrams: 03/03/22 08:30 Blood Type / Crossmatch: Patient ABO/Rh O Positive 02/17/22 Antibody Screen NEGATIVE 02/17/22 Complete Blood Count: White Blood Count 7.97 10^3/uL (4.4-10.8) 02/17/22 07:36 02/17/22 Red Blood Count 3.79 10^6/uL (3.93-5.22) L 02/17/22 07:36 02/17/22 Hemoglobin 11.2 g/dL (11.2-15.7) 02/17/22 07:36 02/17/22 Hematocrit 34.2 % (36.0-46.0) L 02/17/22 07:36 02/17/22 Platelet Count 159 10^3/uL (130-400) 02/17/22 07:36 02/17/22 Complete Metabolic Panel: No Data to Display Liver Function Panel: No Data to Display Coagulation Panel: No Data to Display Cardiac Panel: No Data to Display Arterial Blood Gas: No Data to Display Venous Blood Gas: No Data to Display Pancreas Panel: No Data to Display Thyroid Panel: No Data to Display Infectious Disease: Coronavirus (COVID-19)(PCR) Negative (Negative) 02/17/22 06:35 02/17/22 Coronavirus 2019 Source Nasal/Nares 03/03/22 08:35 03/03/22 Blood Cultures: No Data to Display Toxicology Panel: Urine Amphetamines Screen Negative (Negative) 02/12/22 13:35 02/12/22 Urine Benzodiazepines Screen Negative (Negative) 02/12/22 13:35 02/12/22 Urine Barbiturates Screen Negative (Negative) 02/12/22 13:35 02/12/22 Urine Cocaine Screen Negative (Negative) 02/12/22 13:35 02/12/22 Urine Methadone Screen Negative (Negative) 02/12/22 13:35 02/12/22 Urine Opiates Screen Negative (Negative) 02/12/22 13:35 02/12/22 Ur Tricyclic Antidepressants Screen Negative (Negative) 02/12/22 13:35 02/12/22 Ur Tetrahydrocannabinol (THC) Scrn Negative (Negative) 02/12/22 13:35 02/12/22 Panel: No Data to Display Anesthesia Assessment and Plan Anesthesia History Personal History: No History of Anesthesia Complications Family History: No Family History of Anesthesia Complications Exercise Tolerance Exercise Tolerance: Metabolic Equivalents>4 Pertinent Negatives Pertinent Negatives: No Symptoms of GERD, No Major Cardiovascular Symptoms or Complaints, No Major Pulmonary Symptoms or Complaints and No History of CVA/TIA Cardiac & Pulmonary Exam Cardiac Exam: Normal S1/S2 Heart Sounds Pulmonary Exam: Clear Bilateral Breath Sounds Implantable Cardiac Device Does patient have a Pacemaker or an ICD?: No Airway Exam Known Difficult Airway: No Mallampati Class: 2 Mouth Opening: Normal (> 3cm) Thyromental Distance: Greater than 3 cm Neck Range of Motion: Full ROM Neck Circumference: Normal Teeth Condition: Normal Dentition ASA Classification ASA Score: ASA 2 Emergency Case?: No NPO Status NPO Status: NPO Clears >2 hours, Solids >8 hours Status Status: Confirmed Anesthesia Plan Resuscitation Status: Full Code Anesthesia Technique: Spinal Anesthesia Airway Planned: Natural Airway Monitors Used: Standard Monitors
[2022-03-03 09:40] LABS: COVID-19 PCR Negative (Negative)
[2022-03-03 09:42] LABS: HCT 34.9 % (36.0-46.0); HGB 11.4 g/dL (11.2-15.7); MCH 29.8 pg (27.0-33.0); MCHC 32.7 % (32.0-36.0); MCV 91.1 fL (80-95); MPV 12.4 fL (8.0-11.0); Platelet Count 153 10^3/uL (130-400); RBC 3.83 10^6/uL (3.93-5.22); RDW 13.7 % (11.7-14.6); RDW-SD 46.2 fL; WBC 8.28 10^3/uL (4.4-10.8)
[2022-03-03] MEDS: AZITHROMYCIN 500 MG in Normal Saline 250 ML 250 MG IVPB (09:46)
[2022-03-03] MEDS: Sodium Citrate 30 ML CUP PO (10:00)
[2022-03-03] MEDS: Oxytocin/Normal Saline 30 UNIT/500 ML BAG 334 UNITS IV (11:00)
--- NOTE | 2022-03-03 11:39 | W.PM.OBCSECT ---
Date of service: 03/03/22 Time of Service: 11:39 Operative Note Operative Note Delivery Method: Scheduled and Primary NTSV>37 Weeks: No DATE OF PROCEDURE: 03/03/22 PRE-OP DIAGNOSES: at 39 weeks and 2/7, breech presentation, unsuccessful version POST-OP DIAGNOSES: same Uterine fibroid PROCEDURE: Primary low transverse section SURGEON: Alda Samayoa Hitch Technician: Giulia Elizabeth Anesthesia: regional and spinal Estimated blood loss (mL): 400 Complications: None Patient was transported to: floor Patient's condition: stable Indications: Term , breech presentation, unsuccessful external cephalic version Findings: Normal-appearing tubes and ovaries. 5 cm mid right uterine fibroid. Delivery of a viable male from the dipika breech presentation. Procedure Description: After full informed consent was obtained, patient was taken the operating suite with an IV running. She had prophylactic antibiotic therapy with both 2 g of Ancef and 500 mg of Zithromax. She had pneumatic compression stockings for thromboembolism protection. She was placed in the seated position and spinal anesthesia administered, tested and found to be adequate. She was placed in the dorsal supine position with leftward tilt. She underwent a vaginal preparation and Shah catheter insertion. At this point, she was prepped and draped in the usual sterile fashion. Pfannenstiel skin incision area was infiltrated with quarter percent Marcaine for postoperative pain control. A Pfannenstiel skin incision was made carried down to the underlying fascia which was nicked in the midline and extended laterally. Rest of muscles identified split in the midline and the peritoneum entered bluntly. Peritoneal incision was extended superiorly and inferiorly and the bladder blade was inserted. The vesicouterine peritoneum was identified tented up and entered sharply and the bladder flap created. A low transverse uterine incision was made in the midline and extended bluntly laterally. The breech was delivered through the incision to the point that the sacrum could be identified. With gentle downward traction to the point that the scapulas were present, counterclockwise rotation was performed to deliver the right arm and clockwise rotation performed to deliver the left arm. The vertex was delivered in a flexed position atraumatically. There was no evidence of nuchal cord. Three-vessel cord was noted clamped x2 and cut and the was handed off to the waiting cyanide case hardener. At this point cord blood sample and a segment for cord blood gases were both obtained. Baby had Apgars of 8 and 9 and no cord gases were sent. Placenta was then delivered spontaneously and was found to be intact. The uterus was then exteriorized and cleared of all clots and debris. There is noted to be in the 4 to 5 cm right mid body uterine fibroid present. Uterine incision was closed in a double layer closure with 0 Monocryl suture first layer being running locked, second layer being imbricating. There is an area in the right aspect of the incision that was not hemostatic, and the area of blood supply to the fibroid. This was oversewn with 3, 0-0 Monocryl stitches and one stitch of #1 chromic to achieve hemostasis. At this point, the uterus was returned to the abdomen and abdomen irrigated with copious amounts of normal saline. The uterine incision was reinspected and found to be hemostatic. At this point the fascial incision was closed using 0 Vicryl suture in a running fashion. Subcutaneous tissue irrigated with copious amounts of normal saline. Subcu tissue reapproximated with 3-0 Vicryl suture in a simple interrupted fashion and the skin edge reapproximated with 4-0 undyed Monocryl in a subcuticular fashion. Mastisol, Steri-Strips, and sterile dressing were placed. At this point, the uterus was firm, 3 cm below the umbilicus, and uterus expressed for clearance of all clot. Patient was returned to the center, in stable condition with a Shah catheter draining clear yellow urine. EBL: 400 mL Fluids: Crystalloid per anesthesia Pathology: None sent Findings: Delivery of a viable male infant from the dipika breech presentation. Normal-appearing tubes and ovaries. 4 cm mid body uterine fibroid noted.
[2022-03-03] MEDS: Acetaminophen 325 MG TAB 650 MG PO ×2 (14:12→20:32)
[2022-03-03] MEDS: Lactated Ringers 1,000 ML 200 ML IV ×2 (14:30→23:18)
--- NOTE | 2022-03-03 14:48 | W.ANESPOSTOP ---
Postoperative Evaluation Date, Time and Location Date Performed: 03/03/22 Time Performed: 14:49 Patient Location: Obstetrics Vital Signs Most Recent Imported Vital Signs: Most Recent Vital Signs Temp Pulse Resp BP Pulse Ox 37 C 67 16 115/68 97 03/03/22 09:11 03/03/22 14:37 03/03/22 14:37 03/03/22 14:37 03/03/22 14:37 Pain Score Most Recent Pain Score: Most Recent Pain Score Pain Level [Abdomen] 2 03/03/22 14:37 Pain Level 2 03/03/22 14:12 Assessment Mental Status: Awake (Alert & Oriented to Patient Baseline) Airway and Respiratory Function: Patent airway with normal (patient baseline) respiratory exam Cardiovascular Function: Hemodynamically Stable Hydration Status: Adequately Hydrated Nausea & Vomiting: No Nausea or Vomiting Pain: Pain is tolerable per patient Peripheral Nerve Block: Patient did not receive a nerve block
[2022-03-03] MEDS: Ondansetron 4 MG/2 ML VIAL IVP (15:30)
[2022-03-03] MEDS: Ketorolac 30 MG/ML VIAL IVP ×2 (16:11→21:56)
[2022-03-03] MEDS: Docusate Sodium 100 MG CAP PO (16:11)
[2022-03-03] MEDS: Normal Saline Flush 10 ML SYR IVP (21:56)
[2022-03-04] MEDS: Acetaminophen 325 MG TAB 650 MG PO ×3 (01:12→20:01)
[2022-03-04 02:10] VITALS: BP 99/58; PULSE 68
[2022-03-04] MEDS: Ketorolac 30 MG/ML VIAL IVP ×2 (03:55→10:07)
[2022-03-04] MEDS: Lactated Ringers 1,000 ML 200 ML IV (03:59)
[2022-03-04 04:13] VITALS: BP 98/61; PULSE 62; RESP 18; TEMP 36.5; O2SAT 98
--- NOTE | 2022-03-04 07:36 | W.PM.OBPNV1 ---
Date of service: 03/04/22 Time of Service: 07:36 Assessment and Plan Assessment and plan (1) Status post primary low transverse section: Status: Acute Assessment and plan: Postop day #1 status post primary low transverse section. Overall doing well. Vital signs are stable. A.m. CBC ordered for today. Ambulate. Shah catheter is out. Continue to monitor I's and O's. Saline lock IV. (2) Breech presentation of fetus: Status: Acute (3) GDM (gestational diabetes mellitus): Status: Acute Subjective Subjective Interval history: Patient seen and examined this morning. Doing well. Breast-feeding without difficulty. Pain is well controlled. She has been ambulating without concern. She is feeling well. Patient comments: No complaints Patient's Mood: Good Exam Physical Exam Vital signs: Temp Pulse Resp BP Pulse Ox 97.7 F 62 18 98/61 L 98 03/04/22 04:13 03/04/22 04:13 03/04/22 04:13 03/04/22 04:13 03/04/22 04:13 Vital Signs Reviewed: Yes Constitutional Constitutional: no acute distress Respiratory Exam Respiratory Exam: Normal Cardiovascular Exam Cardiovascular Exam: Normal Abdominal Exam Abdomen: Tender and Other (Soft, nondistended, positive bowel sounds) Fundal Exam Comment: Firm, below the umbilicus Extremities Exam Extremity Exam: Normal and Edema (Bilateral, 1+); negative Calf Tenderness Skin Exam Skin Exam: Normal Neurological Exam Neurological Exam: Normal Psychiatric Exam Psychiatric Exam: Normal Results Hemoglobin/Hematocrit: Hgb 11.4 g/dL (11.2-15.7) 03/03/22 09:33 Hct 34.9 % (36.0-46.0) L 03/03/22 09:33 Abnormal Lab Findings: Abnormal Labs 03/03/22 09:33 RBC 3.83 L Hct 34.9 L MPV 12.4 H
[2022-03-04 07:55] VITALS: BP 108/65; PULSE 66; RESP 16; TEMP 36.8; O2SAT 96
[2022-03-04 07:55] LABS: Abs Immature Grans 0.07 10^3/uL (0.0-0.06); Absolute Basophil Count 0.02 10^3/uL (0.0-0.2); Absolute Eosinophil Count 0.04 10^3/uL (0.0-0.7); Absolute Lymphocyte Count 2.44 10^3/uL (1.2-3.4); Absolute Monocyte Count 0.55 10^3/uL (0.1-0.8); Basophils % 0.2; Eosinophils % 0.4; HCT 29.5 % (36.0-46.0); HGB 9.6 g/dL (11.2-15.7); Immature Grans % 0.7; Lymphocytes % 24.4; MCH 29.9 pg (27.0-33.0); MCHC 32.5 % (32.0-36.0); MCV 91.9 fL (80-95); Monocytes % 5.5; Neutrophils % 68.8; Platelet Count 143 10^3/uL (130-400); RBC 3.21 10^6/uL (3.93-5.22); RDW 13.9 % (11.7-14.6); RDW-SD 46.8 fL; WBC 10.02 10^3/uL (4.4-10.8)
[2022-03-04] MEDS: Docusate Sodium 100 MG CAP PO (08:12)
[2022-03-04] MEDS: Normal Saline Flush 10 ML SYR IVP (10:08)
[2022-03-04 12:05] VITALS: BP 109/73; PULSE 70; RESP 16; TEMP 36.7; O2SAT 97
[2022-03-04] MEDS: Ibuprofen 600 MG TAB PO ×2 (16:05→22:05)
[2022-03-04 16:10] VITALS: BP 116/75; PULSE 67; RESP 16; TEMP 36.8; O2SAT 97
[2022-03-04 23:12] VITALS: BP 111/72; PULSE 61; RESP 18; O2SAT 98
[2022-03-05] MEDS: Acetaminophen 325 MG TAB 650 MG PO ×3 (01:34→13:18)
[2022-03-05] MEDS: Ibuprofen 600 MG TAB PO ×2 (04:33→13:18)
[2022-03-05 07:30] VITALS: BP 123/78; PULSE 73; RESP 16; TEMP 36.8; O2SAT 97
[2022-03-05] MEDS: Docusate Sodium 100 MG CAP PO (07:52)
--- NOTE | 2022-03-05 08:54 | OBPPV_ITS ---
Date of service: 03/05/22 Time of Service: 08:54 Assessment and Plan Assessment and plan (1) Status post primary low transverse section: Status: Acute Assessment and plan: Patient is postoperative day #2 status post primary low transverse section for breech presentation. was complicated by advanced maternal age and gestational diabetes. Overall she is doing well and desires discharge home later today. All questions were answered. Postoperative course discussed. She will be seen in the office in 2 and 6 weeks. She will need a new lower glucose tolerance test after her 6-week visit. (2) Breech presentation of fetus: Status: Acute (3) GDM (gestational diabetes mellitus): Status: Acute (4) Hypothyroidism: Status: Chronic (5) Advanced maternal age (AMA) in : Status: Acute Subjective Subjective Interval history: Patient seen and examined this morning. Overall doing well. Pain is well controlled. Slightly emotional due to perceived restrictions after section. Discussed today. 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 Mild ecchymosis at the left) Fundal Exam Fundus: Below Umbilicus and Firm Extremities Exam Extremity Exam: Normal and Edema (1+ bilateral); negative Calf Tenderness Skin Exam Skin Exam: Normal DetailedPsychiatric Exam Psych Exam: Normal Affect, Normal Thougth Process, Cooperative, Good Insight and Good Judgement Results Hemoglobin/Hematocrit: Hgb 9.6 g/dL (11.2-15.7) L 03/04/22 07:50 Hct 29.5 % (36.0-46.0) L 03/04/22 07:50 Abnormal Lab Findings: Abnormal Labs 03/03/22 03/04/22 09:33 07:50 RBC 3.83 L 3.21 L Hgb 9.6 L Hct 34.9 L 29.5 L MPV 12.4 H 12.0 H Absolute Neutrophils 6.90 H
--- NOTE | 2022-03-05 09:01 | DSE_ITS ---
Date of service: 03/05/22 Time of Service: 09:01 DS: Diagnosis Discharge Diagnosis (1) Status post primary low transverse section: Status: Acute Asessment and Plan: Postoperative day #2 status post primary low transverse section for breech presentation at term. Doing well. Discharge home. Instructions given. (2) Breech presentation of fetus: Status: Acute Asessment and Plan: Resolved with (3) GDM (gestational diabetes mellitus): Status: Acute Asessment and Plan: Stable, will have 2-hour glucose tolerance test after 6-week visit (4) Hypothyroidism: Status: Chronic Asessment and Plan: Stable (5) Advanced maternal age (AMA) in : Status: Acute Discharge Plan Disposition Condition: Good Discharge Details Reason For Visit: Delivery Admit Date/Time: 03/03/22 08:30 Admit Provider: Alda Samayoa Attending Provider: Alda Samayoa Primary Care Provider: Michelle Gallardo [place] [facility] Course Hospital Course: Patient was admitted to the [facility] center for primary low-transverse section at 39 weeks and 2 days due to breech presentation and a failed external cephalic version. had been complicated by advanced maternal age and gestational diabetes. She had an uncomplicated primary section on 03/03/2022. Uncomplicated postoperative course with a postoperative hemoglobin of 9.6 for which she was asymptomatic. She was discharged home postoperative day #2 ambulating, tolerating a regular diet and oral pain medication with stable vital signs. All questions were answered. Home Meds and New Rx's Prescriptions: New ibuprofen 800 mg tablet 800 mg PO Q8H PRNQty: 30 3RF oxycodone-acetaminophen [Percocet] 5-325 mg tablet 1 tab PO Q8H PRNQty: 10 0RF docusate sodium [Colace] 100 mg capsule 100 mg PO BID Qty: 30 0RF Continued prenat.vits,herman,bro-cyny-aofcr tablet 1 tab PO DAILY 0RF albuterol sulfate 8.5 GM HFA aerosol inhaler 2 puff Inhalation Q6H PRN PRNQty: 1 0RF Discontinued alcohol swabs [Alcohol Prep Pads] Pads, Medicated 1 pad topical QID Qty: 200 2RF No Action (DME) blood sugar diagnostic Strip See Rx Instructions .ROUTE .MEDSUPPLY Qty: 100 3RF Rx Instructions: As directed QID testing (DME) lancets [OneTouch UltraSoft Lancets] Misc See Rx Instructions .ROUTE .MEDSUPPLY Qty: 200 2RF Rx Instructions: As directed Discharge Instructions Stand Alone Forms: BC Discharge Instruc Activity:: Pelvic rest, no heavy lif Equipment/Supplies:: No Equipment Needed Diet:: As Tolerated OB:DS Summary Contraception Discussed Contraception Discussed: Yes Contraceptive Plan: IUD (After 6-week check), [place] Gender-Baby A: Male weight: 6 lb 4.002 oz Status at Discharge Functional status at discharge: independent ambulation Overall status at discharge: patient is progressing back to baseline Mental Status: mental status grossly normal Speech and Movement: speech and movement normal Mood: congruent mood Affect: normal affect Exam Physical Exam Vital signs: Temp Pulse Resp BP Pulse Ox 98.2 F 73 16 123/78 97 03/05/22 07:30 03/05/22 07:30 03/05/22 07:30 03/05/22 07:30 03/05/22 07:30 PFSH All Active Problems (Updated 02/16/22 @ 11:04 by Alda Samayoa DO) Status post primary low transverse section (Acute) 03/03/22. Reynaldo Weston. Breech presentation of fetus (Acute) GDM (gestational diabetes mellitus) (Acute) Elevated 1 hour test. Patient declines 3 hour. Had GDM in the past. Will test 4 x day, Dietary modifications. surviellance Abnormal glucose tolerance affecting , antepartum (Acute) (Acute) Hypothyroidism (Chronic) Diagnosed after recurrent loss. not taking medication currently Asthma (Chronic) uses inhaler occasionally Second trimester (Acute) Advanced maternal age (AMA) in (Acute) History of thyroid disorder (Acute) Early stage of (Acute) Environmental allergies (Acute 10/28/14) Medical History (Updated 02/16/22 @ 11:04 by Alda Samayoa DO) Advanced maternal age (AMA) in Contraception management Hip dysplasia HRP (high risk ) Surgical History (Updated 03/04/22 @ 09:31 by Giulia Elizabeth MD) History of arthroscopic knee surgery History of hip surgery Family History (Updated 08/20/21 @ 13:22 by June Jo CNM) Mother Mouth cancer Father Diabetes Substance use disorder Alcohol use disorder Social History Smoking/Tobacco Use Status: Never Smoking risk assessment performed?: Yes Drug use: Never Substance use type: does not use Details: wine daily up until a couple of months ago. 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 Date GA/Weeks # Outcome Route Wgt Sex Labor Lgth Anesthes ia Location Prov Complic 08/21/09 36 Yes Successful vaginal 5 lb 7 oz Female local [facility] [place] 08/09/19 Unsuccessful 11/20/20 39 No Successful vaginal 7 lb [address] oz [address] Alda Samayoa [place] Delivery Date: 08/21/09 Last Updated by: June Jo CNM PROM, pitocin augmentation Delivery Date: 08/09/19 Last Updated by: Shayy Ignacio M.D. 6 1st trimester SAB/MAB 2017-2019. D&C x1 Delivery Date: 11/20/20 Last Updated by: June Jo CNM IOL due to AMA. induction started 4 pm, delivered 8 hours later. precipitous delivery. DS: Data Vitals/I&O Vitals and I&O: Vital Signs Temperature 98.2 F 03/05/22 07:30 Pulse 73 03/05/22 07:30 Pulse Rhythm Regular 03/05/22 07:30 Respiratory Rate 16 03/05/22 07:30 Blood Pressure 123/78 03/05/22 07:30 Blood Pressure Mean 93 03/05/22 07:30 Pulse Oximetry 97 03/05/22 07:30 Oxygen Delivery Method Room Air 03/03/22 12:26 Oxygen Flow Rate 0 03/03/22 12:26 Pain Level 4 03/05/22 07:52 Comment 03/04/22 04:13 Intake & Output 03/04/22 03/04/22 03/05/22 11:59 23:59 11:59 Intake Total 2356.667 / 2356.667 Output Total 1300 / 1300 Balance 1056.667 / 1056.667 Intake: IV 1856.667 / 1856.667 Oral 500 / 500 Output: Urine 1300 / 1300 Other: Urine Color Light Tsering Pale Urine Appearance Clear Urine Odor None Voiding Methods Toilet
--- NOTE | 2022-03-05 09:03 | W.PM.DS.N ---
DS: Diagnosis Discharge Diagnosis (1) Status post primary low transverse section: Status: Acute (2) Breech presentation of fetus: Status: Acute (3) GDM (gestational diabetes mellitus): Status: Acute (4) Hypothyroidism: Status: Chronic (5) Advanced maternal age (AMA) in : Status: Acute Discharge Plan Disposition Condition: Good Discharge Details Reason For Visit: Delivery Admit Date/Time: 03/03/22 08:30 Admit Provider: Alda Samayoa Attending Provider: Alda Samayoa Primary Care Provider: Michelle Gallardo [facility] Course Hospital Course: Patient was admitted to the [facility] for primary low-transverse section at 39 weeks and 2 days due to breech presentation and a failed external cephalic version. had been complicated by advanced maternal age and gestational diabetes. She had an uncomplicated primary section on 03/03/2022. Uncomplicated postoperative course with a postoperative hemoglobin of 9.6 for which she was asymptomatic. She was discharged home postoperative day #2 ambulating, tolerating a regular diet and oral pain medication with stable vital signs. All questions were answered. Home Meds and New Rx's Prescriptions: New ibuprofen 800 mg tablet 800 mg PO Q8H PRNQty: 30 3RF oxycodone-acetaminophen [Percocet] 5-325 mg tablet 1 tab PO Q8H PRNQty: 10 0RF docusate sodium [Colace] 100 mg capsule 100 mg PO BID Qty: 30 0RF Continued prenat.vits,herman,dxh-mtjf-wbxsz tablet 1 tab PO DAILY 0RF albuterol sulfate 8.5 GM HFA aerosol inhaler 2 puff Inhalation Q6H PRN PRNQty: 1 0RF Discontinued alcohol swabs [Alcohol Prep Pads] Pads, Medicated 1 pad topical QID Qty: 200 2RF No Action (DME) blood sugar diagnostic Strip See Rx Instructions .ROUTE .MEDSUPPLY Qty: 100 3RF Rx Instructions: As directed QID testing (DME) lancets [OneTouch UltraSoft Lancets] Misc See Rx Instructions .ROUTE .MEDSUPPLY Qty: 200 2RF Rx Instructions: As directed Discharge Instructions Stand Alone Forms: BC Discharge Instruc Activity:: Pelvic rest, no heavy lif Equipment/Supplies:: No Equipment Needed Diet:: As Tolerated DS: Summary Time Spent with Patient providing and/or coordinating discharge services: Less than 30 minutes Status at Discharge Functional status at discharge: independent ambulation Overall status at discharge: patient is back to baseline Mental Status: mental status grossly normal Speech and Movement: speech and movement normal Mood: congruent mood Affect: normal affect Exam Narrative Exam Narrative: See physical examination from progress note dated 03/05/2022 Psych Mental Status: mental status grossly normal Speech and Movement: speech and movement normal Mood: congruent mood Affect: normal affect DS: Data Vitals/I&O Vitals and I&O: Vital Signs Temperature 98.2 F 03/05/22 07:30 Pulse 73 03/05/22 07:30 Pulse Rhythm Regular 03/05/22 07:30 Respiratory Rate 16 03/05/22 07:30 Blood Pressure 123/78 03/05/22 07:30 Blood Pressure Mean 93 03/05/22 07:30 Pulse Oximetry 97 03/05/22 07:30 Oxygen Delivery Method Room Air 03/03/22 12:26 Oxygen Flow Rate 0 03/03/22 12:26 Pain Level 4 03/05/22 07:52 Comment 03/04/22 04:13 Intake & Output 03/04/22 03/04/22 03/05/22 11:59 23:59 11:59 Intake Total 2356.667 / 2356.667 Output Total 1300 / 1300 Balance 1056.667 / 1056.667 Intake: IV 1856.667 / 1856.667 Oral 500 / 500 Output: Urine 1300 / 1300 Other: Urine Color Light Tsering Pale Urine Appearance Clear Urine Odor None Voiding Methods Toilet PFSH All Active Problems (Updated 02/16/22 @ 11:04 by Alda Samayoa DO) Status post primary low transverse section (Acute) 03/03/22. Reynaldo Weston. Breech presentation of fetus (Acute) GDM (gestational diabetes mellitus) (Acute) Elevated 1 hour test. Patient declines 3 hour. Had GDM in the past. Will test 4 x day, Dietary modifications. surviellance Abnormal glucose tolerance affecting , antepartum (Acute) (Acute) Hypothyroidism (Chronic) Diagnosed after recurrent loss. not taking medication currently Asthma (Chronic) uses inhaler occasionally Second trimester (Acute) Advanced maternal age (AMA) in (Acute) History of thyroid disorder (Acute) Early stage of (Acute) Environmental allergies (Acute 10/28/14) Medical History (Updated 02/16/22 @ 11:04 by Alda Samayoa DO) Advanced maternal age (AMA) in Contraception management Hip dysplasia HRP (high risk ) Surgical History (Updated 03/04/22 @ 09:31 by Giulia Elizabeth MD) History of arthroscopic knee surgery History of hip surgery Family History (Updated 08/20/21 @ 13:22 by June Jo CNM) Mother Mouth cancer Father Diabetes Substance use disorder Alcohol use disorder Social History Smoking/Tobacco Use Status: Never Smoking risk assessment performed?: Yes Drug use: Never Substance use type: does not use Details: wine daily up until a couple of months ago. 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 Date GA/Weeks # Outcome Route Wgt Sex Labor Lgth Anesthesia Location Prov Complic 08/21/09 36 Yes Successful vaginal 5 lb 7 oz Female local [facility] [place] 08/09/19 Unsuccessful 11/20/20 39 No Successful vaginal 7 lb [address] Alda Samayoa [place] Delivery Date: 08/21/09 Last Updated by: June Jo CNM PROM, pitocin augmentation Delivery Date: 08/09/19 Last Updated by: Shayy Ignacio M.D. 6 1st trimester SAB/MAB 2017-2019. D&C x1 Delivery Date: 11/20/20 Last Updated by: June Jo CNM IOL due to AMA. induction started 4 pm, delivered 8 hours later. precipitous delivery.
[2022-03-05 13:20] VITALS: BP 116/77; PULSE 85; RESP 16; TEMP 36.8; O2SAT 97
== END 2022-03-05 13:56 | disposition home or self-care (01) | DRG 788 ==
LOC: SUR 10:33 → OBS 10:34
PROVIDERS: Admitting Provider Obstetrics & Gynecology; PCP Family Medicine; Visit Provider Obstetrics & Gynecology
PROC: 10D00Z1 Extraction of Products of Conception, Low, Open Approach (ICD-10-PCS; CPT 59514; principal; 2022-03-03 10:00)
DX: O24.410 Gestational diabetes mellitus in pregnancy, diet controlled (principal); O32.1XX0 Maternal care for breech presentation, not applicable or unspecified; Z37.0 Single live birth; Z3A.39 39 weeks gestation of pregnancy; E03.9 Hypothyroidism, unspecified; J45.909 Unspecified asthma, uncomplicated; O99.52 Diseases of the respiratory system complicating childbirth; O99.284 Endocrine, nutritional and metabolic diseases complicating childbirth; O34.13 Maternal care for benign tumor of corpus uteri, third trimester
CPT/HCPCS: 59514; 36415; 85027; 86850; 86900; 86901; 87635; 85025; J0456; J0690; J1100; J1885; J2370; J2405; J3010

== ENCOUNTER 2022-03-09 18:12 | Outpatient (CLI) | payer BC, MEDICAID, SELFPAY ==
[2022-03-09 12:24] LABS: Abs Immature Grans 0.04 10^3/uL (0.0-0.06); Absolute Basophil Count 0.03 10^3/uL (0.0-0.2); Absolute Eosinophil Count 0.24 10^3/uL (0.0-0.7); Absolute Lymphocyte Count 2.05 10^3/uL (1.2-3.4); Absolute Monocyte Count 0.24 10^3/uL (0.1-0.8); Absolute Neutrophil Count 4.17 10^3/uL (1.2-6.7); Basophils % 0.4; Eosinophils % 3.5; HCT 34.7 % (36.0-46.0); HGB 11.3 g/dL (11.2-15.7); Immature Grans % 0.6; Lymphocytes % 30.3; MCH 29.4 pg (27.0-33.0); MCHC 32.6 % (32.0-36.0); MCV 90 fL (80-95); MPV 11.6 fL (8.0-11.0); Monocytes % 3.5; Neutrophils % 61.7; Platelet Count 230 10^3/uL (130-400); RBC 3.84 10^6/uL (3.93-5.22); RDW 14.1 % (11.7-14.6); RDW-SD 45.9 fL; WBC 6.77 10^3/uL (4.4-10.8)
[2022-03-09 12:37] LABS: ALT 21 U/L (14-59); AST 19 U/L (15-37); Albumin 2.8 g/dL (3.4-5.0); Alkaline Phosphatase 108 U/L (46-116); Anion Gap 8.5 mmol/L (3-11); BUN 13 mg/dL (7-18); Bilirubin, Total 0.2 mg/dL (0.2-1.0); CO2 26.5 mmol/L (21.0-32.0); CREATININE 0.7 mg/dL (0.55-1.02); Calcium 8.6 mg/dL (8.5-10.1); Chloride 104 mmol/L (98-107); Glucose 80 mg/dL (74-106); Sodium 139 mmol/L (136-145); Total Protein 6.8 g/dL (6.4-8.2)
[2022-03-09 13:12] LABS: TSH (W/Ref FT4) 1.29 uIU/mL (0.36-3.74)
[2022-03-09 16:40] LABS: COMMENT (LAB VIEW ONLY) 32.63 mg/dL; PROTEIN 8.3 mg/dL; Prot/Crea Ur Ratio 0.25
== END 2022-03-09 18:13 | disposition home or self-care (01) ==
LOC: LBO 18:14
PROVIDERS: PCP Family Medicine; Visit Provider Obstetrics & Gynecology
DX: R60.0 Localized edema (principal); O99.285 Endocrine, nutritional and metabolic diseases complicating the puerperium; E03.9 Hypothyroidism, unspecified; Z98.891 History of uterine scar from previous surgery
CPT/HCPCS: 36415; 80053; 86850; 86900; 86901; 82565; 84156; 84443; 85025

== ENCOUNTER 2022-04-13 01:54 | Outpatient (CLI) | payer BC, MEDICAID, SELFPAY ==
[2022-04-13 08:56] LABS: Abs Immature Grans 0.02 10^3/uL (0.0-0.06); Absolute Basophil Count 0.05 10^3/uL (0.0-0.2); Absolute Eosinophil Count 0.43 10^3/uL (0.0-0.7); Absolute Lymphocyte Count 2.28 10^3/uL (1.2-3.4); Basophils % 0.7; Eosinophils % 6.4; HCT 42.3 % (36.0-46.0); HGB 13.6 g/dL (11.2-15.7); Immature Grans % 0.3; Lymphocytes % 34.1; MCHC 32.2 % (32.0-36.0); MCV 90 fL (80-95); MPV 11.6 fL (8.0-11.0); Monocytes % 4.5; Platelet Count 223 10^3/uL (130-400); RBC 4.69 10^6/uL (3.93-5.22); RDW 13.7 % (11.7-14.6); RDW-SD 45.1 fL; WBC 6.68 10^3/uL (4.4-10.8)
[2022-04-13 11:22] LABS: GTT Comment See Comments
== END 2022-04-13 01:55 | disposition home or self-care (01) ==
LOC: LBO 01:54
PROVIDERS: PCP Family Medicine; Visit Provider Obstetrics & Gynecology
DX: Z86.32 Personal history of gestational diabetes (principal); Z30.8 Encounter for other contraceptive management; Z98.891 History of uterine scar from previous surgery
CPT/HCPCS: 36415; 82947; 82951; 85025

== ENCOUNTER 2023-07-22 18:31 | Outpatient (REF) | payer BC, MEDICAID, SELFPAY ==
[2023-07-22 15:34] LABS: Source Nasal/Nares
[2023-07-22 16:26] LABS: COVID-19 PCR Negative (Negative)
== END 2023-07-22 18:32 | disposition home or self-care (01) ==
LOC: LBN 18:31
PROVIDERS: PCP Family Medicine; Visit Provider Physician Assistant Medical
DX: R50.9 Fever, unspecified (principal); Z20.822 Contact with and (suspected) exposure to COVID-19
CPT/HCPCS: 87635

== ENCOUNTER 2024-04-16 09:38 | Outpatient (REF) | payer BC, MEDICAID, SELFPAY ==
--- NOTE | 2024-04-16 09:00 | PAPFT_PTH ---
PATIENT: Yani Catalan LOC: [facility] U#:[id number] AGE/SX: 43/F ROOM: RE04/16/[address]: Shayy Ignacio MD : 1980 BED: DIS: 04/16/2024 SPEC #: [id number] RECD: 04/16/24 13:13 STATUS: LONNY REHailee #: [id number] NALLELY: 04/16/24 09:[address]: Shayy Ignacio DEPT: [facility] Cytology RECD BY: Juliana Boyd ENTERED: 04/16/24 13:13 SP TYPE: PAPFT OTHR DR: Michelle Gallardo Tissues: 1 - CX/ENDOCX FOR PAP SMEARS Procedures: PAP THIN PREP/[facility] Screening HPV DNA PROBE Comments: [id number]
== END 2024-04-16 09:39 | disposition home or self-care (01) ==
LOC: LBN 09:38
PROVIDERS: PCP Family Medicine; Visit Provider Obstetrics & Gynecology
DX: Z11.51 Encounter for screening for human papillomavirus (HPV) (principal); Z01.419 Encounter for gynecological examination (general) (routine) without abnormal findings
CPT/HCPCS: 88142; 87624

== ENCOUNTER → 2024-04-18 00:27 | Outpatient (CLI) | payer BC, MEDICAID, SELFPAY ==
--- NOTE | 2024-04-18 07:15 | DI.MAMMO_ITS ---
Exam(s) US BREAST LT COMPLETE MG MAMMO DIAGNOSTIC BI EXAM: MAMMO DIAGNOSTIC BI AND COMPLETE LEFT BREAST ULTRASOUND CLINICAL HISTORY: left breat lump, N63.20. TECHNIQUE: BOTH CC AND MLO mammographic images OF BOTH BREASTS were obtained with 3D tomosynthesis t echnique and utilizing computer aided detection (CAD). ALSO performed cc and MLO spot compression view of abnormal finding in the left breast. COMPLETE LEFT BREAST ULTRASOUND was performed including all 4 quadrants as well as the left axilla. COMPARISON: None. This is a baseline diagnostic mammogram on a 43-year-old patient has felt a new l eft breast lump for a few weeks. FINDINGS: DIAGNOSTIC BILATERAL MAMMOGRAM: There are no significant mammographic findings in the right breast. In the left breast there is a concerning asymmetric spiculated density-mass medial of center, measuri ng approximately 2 x 2 cm and located approximately 10 cm in from the nipple, corresponding to what s he is feeling. There are a few microcalcifications within this lesion. This is suspicious for malig yeimy. No other focal mammographic findings in the left breast. COMPLETE LEFT BREAST ULTRASOUND: At the 11 o'clock position there is a 2.4 x 1.8 cm solid lesion correspond to the finding on the mamm ogram. Appearance is suspicious for malignancy. At the 12 o'clock position there is another finding which has appearance of a solid nodule, lobulated and slightly wider than taller, measuring approximately 10 x 5 mm, exhibiting neutral through transm ission. This will also require ultrasound-guided biopsy. This is not visible on the mammogram. Scanning of the left axilla reveals a few benign-appearing lymph nodes. However, there is 1 lymph no de slightly larger than the others and without a fatty hilum measuring slightly greater than the othe r lymph nodes IMPRESSION: 1. There is finding at the 11 o'clock position of the left breast as described above seen on both ma mmogram and ultrasound which is highly suspicious for malignancy. Biopsy recommended. 2. There is a 2nd solid nodule as described above at the 12 o'clock position of the same-left breast which will also require ultrasound-guided biopsy. 3. One lymph node in the left axilla is slightly prominent. The patient was informed of the findings and follow-up recommendations by myself prior to leaving the department today. A called her referring physician in [facility] and this patient is being se nt directly up to [facility] clinic at this time. BI-RADS Category 5 - Highly Suggestive of Malignancy: Biopsy recommended Breast Density - Category B - Scattered areas of fibroglandular density Breast density Category C or D implies that the patient has dense breast tissue. Dense breast tissue can make it harder to find cancer on a mammogram. Dense breast tissue is also associated with an incr eased risk of breast cancer. This information about the result of the mammogram report was provided to the patient to raise their awareness. Use this report when you speak with the patient about their risks for breast cancer, which includes their family history. At that time, you may recommend additional screening tests (Ultrasoun d or MRI) as these tests may add significant information. A negative radiographic report should not delay biopsy if a dominant or clinically suspicious mass is present. Up to ten percent of cancers are not identified on mammography. A negative report may reinforce clinical impression. Adenosis and dense breasts may obscure an underlying neoplasm. False positive reports average 6 to 10%. Patient will receive a letter notifying them of these results.
== END ==
PROVIDERS: PCP Family Medicine; Visit Provider Obstetrics & Gynecology
DX: N63.22 Unspecified lump in the left breast, upper inner quadrant (principal); Z12.31 Encounter for screening mammogram for malignant neoplasm of breast
CPT/HCPCS: 76642; 77062; 77066; G0279

== ENCOUNTER → 2024-04-20 01:21 | Outpatient (CLI) | payer BC, MEDICAID, SELFPAY ==
--- NOTE | 2024-04-20 | DI.US_ITS ---
Exam(s) US NEEDLE LOCAL BREAST WO RAD EXAM: US NEEDLE LOCAL BREAST WO RAD CLINICAL HISTORY: LT BREAST MASS 12 O'CLOCK 10 x 5 MM AND 11 O'CLOCK 2.4 x 1.8 CM. TECHNIQUE: Ultrasound guidance was provided during performance of ultrasound-guided core biopsy of l eft breast by the surgeon. Radiologist was not present for this procedure. . COMPARISON: US US BREAST LT COMPLETE from 04/18/2024 FINDINGS: Submitted images and cine acquisitions reveal the core biopsy device to be within the targeted lesion of concern at the 11 o'clock position of the left breast. Images also reveal that a biopsy marker w as placed at this site. Additional images reveal 2nd ultrasound-guided percutaneous core biopsy of the 2nd finding which is a t the 12 o'clock position and reveals both the biopsy and placement of a marker at the biopsy acquisi tion site. IMPRESSION: Two separate ultrasound-guided core biopsies of the 2 separate targeted left breast lesions at the 11 and 12 o'clock positions.
--- NOTE | 2024-04-20 12:45 | BREAST_PTH ---
PATIENT: Yani aCtalan LOC: [facility] U#:[id number] AGE/SX: 45/F ROOM: RE04/20/[address]: Ariel Storm MD : 1980 BED: DIS: SPEC #: [id number] RECD: 04/20/24 13:18 STATUS: LONNY REHailee #: [id number] NALLELY: 04/20/24 12:[address]: Ariel Storm DEPT: Surgical Specimen RECD BY: Juliana Boyd ENTERED: 04/20/24 13:21 SP TYPE: Breast OTHR DR: Michelle Gallardo Tissues: 1 - BREAST BX NEEDLE 2 - BREAST BX NEEDLE Procedures: GROSS AND MICRO LEVEL 4 [id number] IPEX ESTROGEN/PROGESTERONE RECEPTOR IPEX STAIN Comments: [id number]
--- NOTE | 2024-04-20 13:01 | OPPNE_ITS ---
Date of service: 04/20/24 Time of Service: 13:01 Procedure Note Date of procedure: 04/20/24 Procedure: Core needle biopsy of left breast mass x 2 Surgeon/Proceduralist/Physician: Ariel Storm Procedure Diagnosis: Left breast mass Procedure Indications: Yani is a 43-year-old woman with suspicious findings in the left breast on mammography. Follow-up ultrasound demonstrated 2 lesions. 1 at the 11 o'clock position, the other 12 o'clock position. Both lesions had suspicious features, and recommendations were made for core needle biopsy Procedure Description: I met Yani and her in the ultrasound suite. In simple terms, I explained the process of core needle biopsy, and what to expect in terms of the actual procedure itself as well as the recovery. Risks and benefits were explained. Yani provided informed consent. Next, with the assistance of the pest control service technician, the lesion in the 11 o'clock position of the left breast was identified. It appeared consistent to me with the previous ultrasound. An area adjacent to the probe was then prepped, and the skin was infiltrated with local anesthetic. I made a small skin incision with an 11 blade scalpel. Next, with real-time ultrasound guidance, I advanced a Bard 22 mm core needle biopsy device to the periphery of the lesion. Biopsy specimen was obtained. Specimen appeared of high quality. This process was repeated 2 more times, and a radiopaque marker was placed adjacent to the mass. Next, I turned our attention to the 12 o'clock position lesion. Again, the image seen on today's ultrasound appeared consistent with the previously documented 1. In a similar fashion to the first biopsy, I anesthetized the skin adjacent to the probe with local anesthetic. I made a similar skin incision, and then took 2 passes with a new 22 mm Bard core needle biopsy device. Again, similar to the first time, radiopaque marker was placed at the lesion. Gentle pressure was applied to the breast. Wound. Hemostatic. Band-Aids were used to dress the skin incision sites. Specimens were preserved in formalin, and labeled as #1 for the breast mass at the 11 o'clock position, #2 for the breast mass at the 12 o'clock position. Yani tolerated the procedure fine, and post procedure instructions were explained.
== END ==
PROVIDERS: PCP Family Medicine; Visit Provider Surgery
DX: C50.812 Malignant neoplasm of overlapping sites of left female breast
CPT/HCPCS: 19083; 88305; 88360; 76942

== ENCOUNTER 2024-07-24 19:46 | Inpatient (IN) | payer BC, MEDICAID, SELFPAY ==
[2024-07-24 19:54] VITALS: BP 130/82; PULSE 133; RESP 20; TEMP 38.6; O2SAT 98
--- NOTE | 2024-07-24 20:15 | ED.GENADUL_ITS ---
Discharge Plan Disposition Patient Disposition: Admit to [facility] Condition: Stable Discharge Details Chief Complaint: Fever Clinical Impression: Neutropenic fever Primary Care Provider: Michelle Gallardo ED Provider: Bulmaro Damico Home Meds and New Rx's Prescriptions: No Action cetirizine [Allergy Relief (cetirizine)] 10 mg tablet 10 mg PO DAILY PRN fluticasone propion-salmeterol [Advair HFA] 230-21 mcg/actuation HFA aerosol inhaler 2 puff inhalation BID prochlorperazine maleate [Compazine] 10 mg tablet 10 mg PO Q6H PRN dexamethasone 4 mg tablet 4 mg PO BID PRN ParaGard T 380A 380 square mm intrauterine device 1 device intrauterine ONCE Rx Instructions: as a single dose ParaGard T 380A 380 square mm intrauterine device 1 device intrauterine ONCE Qty: 1 0RF Rx Instructions: as a single dose HPI General Date/Time Provider Initiated Documentation: 07/24/24 20:02 . HPI Narrative: 43-year-old female history of breast cancer currently undergoing chemotherapy presents with fever at home as well as sore throat. Denies shortness of breath nausea vomiting chills or other systemic signs of illness denies urinary symptoms. Related Data Home Medications ?Medication ?Instructions ?Recorded ?Confirmed cetirizine 10 mg tablet (Allergy 10 mg PO DAILY PRN 04/16/24 07/24/24 Relief (cetirizine)) fluticasone propionate 230 2 puff inhalation BID 04/16/24 07/24/24 mcg-salmeterol 21 mcg/actuation HFA inhaler (Advair HFA) copper 380 square mm intrauterine 1 device intrauterine ONCE 07/03/24 07/24/24 device (ParaGard T 380A) copper 380 square mm intrauterine 1 device intrauterine ONCE #1 ea 07/03/24 07/24/24 device (ParaGard T 380A) dexamethasone 4 mg tablet 4 mg PO BID PRN 07/03/24 07/24/24 prochlorperazine maleate 10 mg 10 mg PO Q6H PRN 07/03/24 07/24/24 tablet (Compazine) Previous Rx's ?Medication ?Instructions ?Recorded copper 380 square mm intrauterine 1 device intrauterine ONCE #1 ea 07/03/24 device (ParaGard T 380A) Allergies Allergy/AdvReac Type Severity Reaction Status Date / Time seasonal Allergy Intermediate Other (See Uncoded 07/03/24 15:33 Comment) General Stated Complaint: Fever CHALO: 2 Exam Narrative Exam Narrative: Alert oriented interactive Moist mucous membranes tongue secretions normal speech Mild erythema to posterior oropharynx without exudate, midline uvula Lungs clear bilaterally speaking full sentences no wheezes rales or rhonchi no retractions Normal heart sounds no murmurs rubs or gallop Abdomen soft nontender nondistended Ambulatory without assistance neurologically intact nonmeningeal moving all extremities no ataxia Course Vital Signs Vital signs: Vital Signs Temperature 38.6 C H 07/24/24 19:54 Pulse 133 H 07/24/24 19:54 Respiratory Rate 20 07/24/24 19:54 Blood Pressure 130/82 07/24/24 19:54 Pulse Oximetry 98 07/24/24 19:54 Temperature 38.6 C H 07/24/24 19:54 Temperature Source Oral 07/24/24 19:54 Pulse 133 H 07/24/24 19:54 Respiratory Rate 07/24/24 19:54 Respiratory Effort Normal, Non-Labored 07/24/24 20:05 Blood Pressure 130/82 07/24/24 19:54 Blood Pressure Position Sitting 07/24/24 19:54 Pulse Oximetry 98 07/24/24 19:54 Pain Level 0 07/24/24 19:54 Lab/Test Results Lab/Test Results: 07/24/24 20:12 Blood Blood Culture - Pending 07/24/24 20:12 Blood Blood Culture - Pending Medical Decision Making 43-year-old female history of breast cancer currently undergoing chemotherapy presents with fever and tachycardia, sore throat over the last day, noted fever at home, no shortness of breath cough urinary symptoms bowel symptomatology or other systemic signs of illness. Mild erythematous oropharynx without exudate. Normal speech tolerate secretions. Nonmeningeal neurologically intact. Lung clear bilaterally. Consider viral pharyngitis versus strep pharyngitis versus COVID versus flu versus influenza muscles consider serious bacterial infection such as pneumonia or UTI or bacteremia. Patient is nonmeningeal and nonfocal. Will obtain IV access and obtain blood cultures urine cultures chest x-ray, basic labs fluid strep swab COVID flu RSV, antipyretic close reassessment. 23: 44 heart rate greatly improved after fluid and antipyretic now 96 bpm. Ev idence of moderate neutropenia 928 cells per microliter, in the setting of fever will cover with broad-spectrum antibiotics and admit to follow cultures. Starting vancomycin and cefepime. Patient rest comfortably no acute distress hemodynamically stable. Quality:SDOH Health Related Social Needs: No Data to Display PFSH All Active Problems (Updated 07/24/24 @ 23:51 by Bulmaro Damico MD) Neutropenic fever (Acute) IUD surveillance (Acute 07/03/24) Paragard Abnormal findings on diagnostic imaging of breast (Acute) Left breast lump (Acute) Asthma (Chronic) uses inhaler occasionally History of thyroid disorder (Acute) Environmental allergies (Acute 10/28/14) Medical History (Updated 07/24/24 @ 23:51 by Bulmaro Damico MD) History of gestational diabetes mellitus (GDM) Hypothyroidism Diagnosed after recurrent loss. not taking medication currently Hip dysplasia Surgical History (Updated 04/23/24 @ 07:59 by Kisha Betancourt) History of biopsy (~04/2024) breast left Status post primary low transverse section 03/03/22. Reynaldo Weston. Breech, unsuccessful ECV History of hip surgery History of arthroscopic knee surgery Family History Mother Mouth cancer Father Diabetes Substance use disorder Alcohol use disorder Social History Smoking/Tobacco Use Status: Never Smoking risk assessment performed?: Yes Drug use: Never Substance use type: does not use Details: wine daily up until a couple of months ago. 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 Date GA/Weeks # Preg Succ Route Wgt Sex Labor Lgth Anesth esia Location [facility] 08/21/09 36 Yes vaginal 2466.409 g Female local [facility] 08/09/19 11/20/20 39 No vaginal 3316.[address] Male [address] Alda Samayoa 03/03/22 39 No 2834.952 g Male KJ Delivery Date: 08/21/09 Last Updated by: Shayy Ignacio MD [place] PROM, pitocin augmentation Delivery Date: 08/09/19 Last Updated by: Shayy Ignacio M.D. 6 1st trimester SAB/MAB 2017-early 2019. D&C x1 Delivery Date: 11/20/20 Last Updated by: Shayy Ignacio MD [place] IOL due to AMA. induction started 4 pm, delivered 8 hours later. precipitous delivery. Delivery Date: 03/03/22 Last Updated by: Shayy Ignacio MD [place] [facility] for breech, failed ECV
[2024-07-24 20:44] LABS: Abs Immature Grans 0.57 10^3/uL (0.0-0.06); HCT 37.1 % (36.0-46.0); HGB 12.6 g/dL (11.2-15.7); MCH 30.6 pg (27.0-33.0); MCV 90 fL (80-95); MPV 11.4 fL (8.0-11.0); Platelet Count 172 10^3/uL (130-400); RBC 4.12 10^6/uL (3.93-5.22); RDW 13.2 % (11.7-14.6); WBC 3.57 10^3/uL (4.4-10.8)
[2024-07-24 21:05] LABS: ALT 27 U/L (14-59); AST 14 U/L (15-37); Albumin 3.8 g/dL (3.4-5.0); Alkaline Phosphatase 163 U/L (46-116); Anion Gap 7.4 mmol/L (3-11); BUN 10 mg/dL (7-18); Bilirubin, Total 0.12 mg/dL (0.2-1.0); CO2 27.6 mmol/L (21.0-32.0); CREATININE 0.8 mg/dL (0.55-1.02); Calcium 9.3 mg/dL (8.5-10.1); Chloride 103 mmol/L (98-107); Estimated GFR 94.28 (mL/min/1.73m2); Glucose 132 mg/dL (74-106); Sodium 138 mmol/L (136-145); Total Protein 7.6 g/dL (6.4-8.2)
[2024-07-24] MEDS: ACETAMINOPHEN 1,000 MG/100 ML BTL 400 MG IVPB (21:15)
[2024-07-24] MEDS: Normal Saline 1,000 ML 1000 ML IV (21:15)
[2024-07-24 21:17] LABS: Absolute Basophil Count 0.04 10^3/uL (0.0-0.2); Absolute Lymphocyte Count 2.18 10^3/uL (1.2-3.4); Absolute Monocyte Count 0.39 10^3/uL (0.1-0.8); Absolute Neutrophil Count 0.93 10^3/uL (1.2-6.7); Atypical Lymphocytes % 7 %; Bands % 5 %; Diff Comment Manual Differential; Myelocytes % 1; RBC Morphology Normal
--- NOTE | 2024-07-24 21:20 | DI.RAD_ITS ---
Exam(s) XR CHEST 2V PA LATERAL EXAM: XR CHEST 2V PA LATERAL CLINICAL HISTORY: breast ca, fever. TECHNIQUE: 2D digital imaging was performed. COMPARISON: CR,XR XR CHEST 2V PA LATERAL from 05/30/2021 FINDINGS: 2 views: There has been interval left mastectomy and left axillary node dissection with surgical clips in left axilla now evident. Distal tip of the right Port-A-Cath is in good position in the SVC. Heart size is normal. The mediastinum is not widened. Lungs are clear. No infiltrates nor pleural effusions. No pulmonary nodules. IMPRESSION: No acute pulmonary findings. Left mastectomy DATA REPOSITORY: RADIATION DOSE DELIVERED:
[2024-07-24 21:21] LABS: COVID-19 PCR Negative (Negative); Influenza A PCR Negative (Negative); Influenza B PCR Negative (Negative); RSV PCR Negative (Negative)
[2024-07-24 21:23] LABS: Source Nasopharynx
--- NOTE | 2024-07-24 22:01 | DI.VRAD_ITS ---
PROCEDURE INFORMATION: Exam: XR Chest Exam date and time: 07/24/2024 9:13 PM Age: 43 years old Clinical indication: Prior surgery; Surgery date: 1-6 months; Surgery type: Chest port. Left sided mastectomy; Patient HX: Fever. Breast cancer TECHNIQUE: Imaging protocol: Radiologic exam of the chest. Views: 2 views. COMPARISON: CR XR CHEST 2V PA LATERAL 05/30/2021 9:07 PM FINDINGS: Tubes, catheters and devices: There is an implanted port in the right anterior chest wall with its tip projecting over the cavoatrial junction. Lungs: No pulmonary consolidation is seen. Pleural spaces: No pleural effusion or pneumothorax is demonstrated. Heart/Mediastinum: The heart appears normal in size. Bones/joints: The visualized bony structures appear grossly intact. Soft tissues: The patient is noted to be status post left mastectomy. There are surgical clips in the left axilla from an axillary lymph node dissection. IMPRESSION: Right-sided Port-A-Cath in-situ with its tip projecting over the cavoatrial junction. Dictated and Authenticated by: Diego Cardenas MD. Ordering:VERONIKA Chamberlain MD
[2024-07-24 22:45] LABS: Bilirubin Negative (Negative); Blood Negative (Negative); Clarity Clear (Clear); Glucose Negative (Negative); Ketones Negative (Negative); Leukocyte Esterase Negative (Negative); Nitrite Negative (Negative); Specific Gravity 1.015 (1.005-1.025); Urobilinogen 0.2 mg/dL (Up to 0.2); pH 7.5 (5-8)
[2024-07-25] VITALS (7 sets, daily range): BP systolic 101–134; BP diastolic 57–103; PULSE 81–96; RESP 13–20; TEMP 37–37.2; O2SAT 95–98
--- NOTE | 2024-07-25 00:08 | HPE_ITS ---
Date of service: 07/25/24 Time of Service: 00:08 Assessment and Plan Assessment and plan (1) Neutropenic fever: Status: Acute Assessment and plan: Neutropenic fever, no definite source, though sore throat (w/o additional s/s) might suggest simple viral illness (certainly has exposure both at home and at work). Will cover with empiric Cefepime and trend ANC. History of Present Illness History of Present Illness Chief Complaint: FEVER, NEUTROPENIA Narrative: 43 female with recently diagnosed breast cancer, s/p placement port one month [facility]ACT[facility], had second round of unknown chemo regimen 8 days [facility]. Comes in tonight with 2 days of sore throat and one day of fever (101 at home). Here in ER findings of note for initial pulse 130s (90s after fluids), temp 38.6, erythema of throat w/o exudate; ANC 930; negative urine, CXR, strep screen and nasal viral swab triple negative. Blood cxx obtained and I was asked to evaluate for admission. Patient denies other URI symptoms aside from sore throat, and no other symptoms whatsoever. 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 Review of Systems Narrative: per HPI PFSH All Active Problems Neutropenic fever (Acute) IUD surveillance (Acute 07/03/24) Paragard Abnormal findings on diagnostic imaging of breast (Acute) Left breast lump (Acute) Asthma (Chronic) uses inhaler occasionally History of thyroid disorder (Acute) Environmental allergies (Acute 10/28/14) Medical History History of gestational diabetes mellitus (GDM) Hypothyroidism Diagnosed after recurrent loss. not taking medication currently Hip dysplasia Surgical History History of biopsy (~04/2024) breast left Status post primary low transverse section 03/03/22. Reynaldo Weston. Breech, unsuccessful ECV History of hip surgery History of arthroscopic knee surgery Family History Mother Mouth cancer Father Diabetes Substance use disorder Alcohol use disorder Social History Smoking/Tobacco Use Status: Never Smoking risk assessment performed?: Yes Drug use: Never Substance use type: does not use Details: wine daily up until a couple of months ago. 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 Date GA/Weeks # Preg Succ Route Wgt Sex Labor Lgth Anesth esia Location [facility] 08/21/09 36 Yes vaginal 2466.409 g Female local [facility] 08/09/19 11/20/20 39 No vaginal 3316.[address] Alda Samayoa 03/03/22 39 No 2834.952 g Male KJ Delivery Date: 08/21/09 Last Updated by: Shayy Ignacio MD [place] PROM, pitocin augmentation Delivery Date: 08/09/19 Last Updated by: Shayy Ignacio M.D. 6 1st trimester SAB/MAB 2017-early 2019. D&C x1 Delivery Date: 11/20/20 Last Updated by: Shayy Ignacio MD [place] IOL due to AMA. induction started 4 pm, delivered 8 hours later. precipitous delivery. Delivery Date: 03/03/22 Last Updated by: Shayy Ignacio MD [place] [facility] for breech, failed ECV Meds Allergies and Home Medications Allergies Allergy/AdvReac Type Severity Reaction Status Date / Time seasonal Allergy Intermediate Other (See Uncoded 07/03/24 15:33 Comment) Home Medications ?Medication ?Instructions ?Recorded ?Confirmed ?Type cetirizine 10 mg tablet (Allergy 10 mg PO DAILY PRN 04/16/24 07/24/24 History Relief (cetirizine)) fluticasone propionate 230 2 puff inhalation BID 04/16/24 07/24/24 History mcg-salmeterol 21 mcg/actuation HFA inhaler (Advair HFA) copper 380 square mm intrauterine 1 device intrauterine ONCE 07/03/24 07/24/24 History device (ParaGard T 380A) copper 380 square mm intrauterine 1 device intrauterine ONCE #1 ea 07/03/24 07/24/24 Rx device (ParaGard T 380A) dexamethasone 4 mg tablet 4 mg PO BID PRN 07/03/24 07/24/24 History prochlorperazine maleate 10 mg 10 mg PO Q6H PRN 07/03/24 07/24/24 History tablet (Compazine) Exam Narrative Exam Narrative: 130/82, 133 (100 during visit), 38.6 max, 20, 98% RA. HEENT mild erythema posterior oropharynx, no exudate; neck supple, no cervical adenopathy; lungs clear; heart RRR w/o MRG; port site right upper chest without redness, swelling or tenderness; abdomen soft and NT; extremities w/o edema; neuro Ox3, lucid, moves all 4s Results Labs 07/24/24 20:31 07/24/24 20:31 Labs: Laboratory Results - last 24 hr 07/24/24 07/24/24 07/24/24 20:11 20:31 22:34 WBC 3.57 L RBC 4.12 Hgb 12.6 Hct 37.1 MCV 90 MCH 30.6 MCHC 34.0 RDW 13.2 Plt Count 172 MPV 11.4 H Immature Gran % See Differential Neutrophils % 21.0 Band Neutrophils % 5 Lymphocytes % 54.0 Atypical Lymphs % 7 Monocytes % 11.0 Eosinophils % 0.0 Basophils % 1.0 Myelocytes % 1 Nucleated RBC % 3.0 H Absolute Neutrophils 0.93 L Absolute Lymphocytes 2.18 Absolute Monocytes 0.39 Absolute Eosinophils 0.00 Absolute Basophils 0.04 RBC Morphology Normal Sodium 138 Potassium 4.0 Chloride 103 Carbon Dioxide 27.6 Anion Gap 7.4 BUN 10 Creatinine 0.8 Est GFR (CKD-EPI 2020) 94.28 Glucose 132 H Calcium 9.3 Total Bilirubin 0.12 L AST 14 L ALT 27 Alkaline Phosphatase 163 H Total Protein 7.6 Albumin 3.8 Urine Color Yellow Urine Clarity Clear Urine pH 7.5 Ur Specific [place] 1.015 Urine Protein Negative Urine Ketones Negative Urine Blood Negative Urine Nitrite Negative Urine Bilirubin Negative Urine Urobilinogen 0.2 Ur Leukocyte Esterase Negative Urine Glucose Negative COVID-19 Source Nasopharynx SARS-CoV-2 (PCR) Negative Influenza Type A (PCR) Negative Influenza Type B (PCR) Negative RSV (PCR) Negative 07/24/24 22:40 WBC RBC Hgb Hct MCV MCH MCHC RDW Plt Count MPV Immature Gran % Neutrophils % Band Neutrophils % Lymphocytes % Atypical Lymphs % Monocytes % Eosinophils % Basophils % Myelocytes % Nucleated RBC % Absolute Neutrophils Absolute Lymphocytes Absolute Monocytes Absolute Eosinophils Absolute Basophils RBC Morphology Sodium Potassium Chloride Carbon Dioxide Anion Gap BUN Creatinine Est GFR (CKD-EPI 2020) Glucose Calcium Total Bilirubin AST ALT Alkaline Phosphatase Total Protein Albumin Urine Color Urine Clarity Urine pH Ur Specific [place] Urine Protein Urine Ketones Urine Blood Urine Nitrite Urine Bilirubin Urine Urobilinogen Ur Leukocyte Esterase Urine Glucose COVID-19 Source Cancelled SARS-CoV-2 (PCR) Cancelled Influenza Type A (PCR) Cancelled Influenza Type B (PCR) Cancelled RSV (PCR) Cancelled Last Vital Signs Temp 38.6 C H 07/24/24 19:54 Pulse 133 H 07/24/24 19:54 Resp 20 07/24/24 19:54 BP 130/82 07/24/24 19:54 Pulse Ox 98 07/24/24 19:54 Time Spent Time spent with Patient: 40-54 minutes Time was spent: preparing to see the patient(eg.review tests), obtaining and/or reviewing separately otained hiistory, ordering medications,tests, procedures, referring, communicating with other health career coordinator and indepentently interpreting results
[2024-07-25] MEDS: CEFEPIME 2 GM in Normal Saline 100 ML IVPB ×2 (00:24→16:55)
--- NOTE | 2024-07-25 01:10 | W.PC.ACHO ---
Registration Status: Primary Language: Preferred Language: ED Information & Data Chief Complaint Fever 07/24/24 20:17 Triage Note last chemo 07/16 fever 101 at 07/24/24 19:54 home and sore throat, Medical / Surgical History (Last Reviewed 07/25/24 @ 00:17 by Mynor Chavarria MD) History of gestational diabetes mellitus (GDM) Hypothyroidism Hip dysplasia (Last Reviewed 07/25/24 @ 00:17 by Mynor Chavarria MD) History of biopsy (~04/2024) Status post primary low transverse section History of hip surgery History of arthroscopic knee surgery Most Recent Vital Signs Temperature 38.6 C H 07/24/24 19:54 Temperature Source Oral 07/24/24 19:54 Pulse 96 H 07/25/24 00:23 Respiratory Rate 20 07/24/24 19:54 Respiratory Effort Normal, Non-Labored 07/24/24 20:05 Blood Pressure 101/63 07/25/24 00:23 Blood Pressure Position Sitting 07/24/24 19:54 Pulse Oximetry 95 07/25/24 00:23 Pain Level 0 07/24/24 19:54 Allergies seasonal Allergy (Intermediate, Uncoded 07/03/24 15:33) Other (See Comment) 04/16/24- pt reports runny/ stuffy nose Precautions Isolation Standard precaution 07/24/24 20:05 IV IV Catheter Type [Right Upper Saline Lock arm] IV Catheter Gauge [Right Upper 20 arm] Diet Orders Category Date Time Status Regular/Normal [DIET] Nutrition 07/25/24 Breakfast Active Diagnostics 07/25/24 07/25/24 07/24/24 Range/Units 05:35 00:25 22:40 WBC Pending (4.4-10.8) 10^3/uL RBC Pending (3.93-5.22) 10^6/uL Hgb Pending (11.2-15.7) g/dL Hct Pending (36.0-46.0) % MCV Pending (80-95) fL MCH Pending (27.0-33.0) pg MCHC Pending (32.0-36.0) % RDW Pending (11.7-14.6) % Plt Count Pending (130-400) 10^3/uL MPV Pending (8.0-11.0) fL Immature Gran % Pending Neutrophils % Pending % Band Neutrophils % % Lymphocytes % Pending % Atypical Lymphs % % Monocytes % Pending % Eosinophils % Pending % Basophils % Pending % Myelocytes % Nucleated RBC % (0.0-0.3) % Absolute Neutrophils Pending (1.2-6.7) 10^3/uL Absolute Lymphocytes Pending (1.2-3.4) 10^3/uL Absolute Monocytes Pending (0.1-0.8) 10^3/uL Absolute Eosinophils Pending (0.0-0.7) 10^3/uL Absolute Basophils Pending (0.0-0.2) 10^3/uL RBC Morphology Sodium (136-145) mmol/L Potassium (3.5-5.1) mmol/L Chloride (98-107) mmol/L Carbon Dioxide (21.0-32.0) mmol/L Anion Gap (3-11) mmol/L BUN (7-18) mg/dL Creatinine (0.55-1.02) mg/dL Est GFR (CKD-EPI 2020) (mL/min/1.73m2) Glucose (74-106) mg/dL Calcium (8.5-10.1) mg/dL Total Bilirubin (0.2-1.0) mg/dL AST (15-37) U/L ALT (14-59) U/L Alkaline Phosphatase (46-116) U/L Total Protein (6.4-8.2) g/dL Albumin (3.4-5.0) g/dL Urine Color (Yellow) Urine Clarity (Clear) Urine pH (5-8) Ur Specific [place] (1.005-1.025) Urine Protein (Neg-Trace) mg/dL Urine Ketones (Negative) mg/dL Urine Blood (Negative) Urine Nitrite (Negative) Urine Bilirubin (Negative) Urine Urobilinogen (Up to 0.2) mg/dL Ur Leukocyte Esterase (Negative) Urine Glucose (Negative) mg/dL COVID-19 Source Pending Cancelled SARS-CoV-2 (PCR) Pending Cancelled (Negative) Influenza Type A (PCR) Pending Cancelled (Negative) Influenza Type B (PCR) Pending Cancelled (Negative) RSV (PCR) Pending Cancelled (Negative) 09/17/24 09/17/24 09/17/24 Range/Units 22:34 20:31 20:11 WBC 3.57 L (4.4-10.8) 10^3/uL RBC 4.12 (3.93-5.22) 10^6/uL Hgb 12.6 (11.2-15.7) g/dL Hct 37.1 (36.0-46.0) % MCV 90 (80-95) fL MCH 30.6 (27.0-33.0) pg MCHC 34.0 (32.0-36.0) % RDW 13.2 (11.7-14.6) % Plt Count 172 (130-400) 10^3/uL MPV 11.4 H (8.0-11.0) fL Immature Gran % See Differential Neutrophils % 21.0 % Band Neutrophils % 5 % Lymphocytes % 54.0 % Atypical Lymphs % 7 % Monocytes % 11.0 % Eosinophils % 0.0 % Basophils % 1.0 % Myelocytes % 1 Nucleated RBC % 3.0 H (0.0-0.3) % Absolute Neutrophils 0.93 L (1.2-6.7) 10^3/uL Absolute Lymphocytes 2.18 (1.2-3.4) 10^3/uL Absolute Monocytes 0.39 (0.1-0.8) 10^3/uL Absolute Eosinophils 0.00 (0.0-0.7) 10^3/uL Absolute Basophils 0.04 (0.0-0.2) 10^3/uL RBC Morphology Normal Sodium 138 (136-145) mmol/L Potassium 4.0 (3.5-5.1) mmol/L Chloride 103 (98-107) mmol/L Carbon Dioxide 27.6 (21.0-32.0) mmol/L Anion Gap 7.4 (3-11) mmol/L BUN 10 (7-18) mg/dL Creatinine 0.8 (0.55-1.02) mg/dL Est GFR (CKD-EPI 2020) 94.28 (mL/min/1.73m2) Glucose 132 H (74-106) mg/dL Calcium 9.3 (8.5-10.1) mg/dL Total Bilirubin 0.12 L (0.2-1.0) mg/dL AST 14 L (15-37) U/L ALT 27 (14-59) U/L Alkaline Phosphatase 163 H (46-116) U/L Total Protein 7.6 (6.4-8.2) g/dL Albumin 3.8 (3.4-5.0) g/dL Urine Color Yellow (Yellow) Urine Clarity Clear (Clear) Urine pH 7.5 (5-8) Ur Specific [place] 1.015 (1.005-1.025) Urine Protein Negative (Neg-Trace) mg/dL Urine Ketones Negative (Negative) mg/dL Urine Blood Negative (Negative) Urine Nitrite Negative (Negative) Urine Bilirubin Negative (Negative) Urine Urobilinogen 0.2 (Up to 0.2) mg/dL Ur Leukocyte Esterase Negative (Negative) Urine Glucose Negative (Negative) mg/dL COVID-19 Source Nasopharynx SARS-CoV-2 (PCR) Negative (Negative) Influenza Type A (PCR) Negative (Negative) Influenza Type B (PCR) Negative (Negative) RSV (PCR) Negative (Negative) 07/24/24 21:30 Blood Culture - Pending Blood 07/24/24 20:11 Group A Streptococcus Culture - Pending Tonsil - Not Specified 07/24/24 20:31 Blood Culture - Pending Blood [id number] Documentation POC Strep Test-MONY(Rapid) Start: 07/24/24 20:12 Freq: .Rapid Strep Test Status: Active Protocol: Activity Type Activity Date Activity User E-sign Co-sign Detail Recorded Client Recorded Date Recorded By Document 07/24/24 20:56 LB [id number] 07/24/24 20:56 LB POC Urine Test Start: 07/24/24 20:12 Freq: .Urine Test Status: Active Protocol: Activity Type Activity Date Activity User E-sign Co-sign Detail Recorded Client Recorded Date Recorded By Document 07/24/24 20:48 LB [id number] 07/24/24 20:48 LB Intake and Output - 24 Hour Total 07/24/24 19:46 thru 07/24/24 22:19 Intake Total 1100 Balance 1100 Weight 81 kg Intake: IV 1100 Falls Risk Assessment History of Falls No History 07/24/24 20:05 Contributing Factors No Factors 07/24/24 20:05 Ambulatory Aids Independent 07/24/24 20:05 Tubes/Lines None 07/24/24 20:05 Gait Evaluation No gait disturbance 07/24/24 20:05 Cognition No cognitive impairment 07/24/24 20:05 Fall Total Score 0 07/24/24 20:05 Level of Risk Standard/Low Risk 07/24/24 20:05 Problems (Last Reviewed 07/25/24 @ 00:17 by Mynor Chavarria MD) Neutropenic fever (Acute) v v v v v v v v v Sending and/or Receiving Nurses: Please use comment section below to note any information pertinent to the patient hand-off not included above. Information / Comments: Dx with breast cancer in April, PORT placed, 2 rounds of chemotherapy-last 07/16/24. Yesterday am sore throat, this evening fever. Oncologist advised ER. All test (covid, flu,strept, rsv negative) Blood cultures pending, UA negative. Admitting with neutropenic fever. #20 VIVIAN, PORT not accessed for infectious reasons. Fever 38.6. 1LNS, 1 gram tylenol, 2 gram cefepime running. BP on forearm. Report received from: Holly Gibson RN 07/25/24 [id number]
[2024-07-25] MEDS: Benzocaine/Menthol LOZG 15/BOX 1 EACH SUC (04:55)
[2024-07-25 07:03] LABS: Abs Immature Grans 0.99 10^3/uL (0.0-0.06); HCT 36.1 % (36.0-46.0); HGB 11.8 g/dL (11.2-15.7); MCH 29.7 pg (27.0-33.0); MCHC 32.7 % (32.0-36.0); MCV 91 fL (80-95); MPV 11.4 fL (8.0-11.0); Nucleated RBC 0.3 % (0.0-0.3); Platelet Count 161 10^3/uL (130-400); RBC 3.97 10^6/uL (3.93-5.22); RDW 13.1 % (11.7-14.6); RDW-SD 43.9 fL; WBC 5.98 10^3/uL (4.4-10.8)
[2024-07-25] MEDS: Ibuprofen 600 MG TAB PO ×3 (07:20→21:07)
[2024-07-25 07:42] LABS: Absolute Basophil Count 0.12 10^3/uL (0.0-0.2); Absolute Lymphocyte Count 1.91 10^3/uL (1.2-3.4); Absolute Monocyte Count 0.78 10^3/uL (0.1-0.8); Absolute Neutrophil Count 2.93 10^3/uL (1.2-6.7); Atypical Lymphocytes % 10 %
[2024-07-25 07:43] LABS: Diff Comment Manual Differential; Metamyelocytes % 2; Myelocytes % 2; RBC Morphology Normal
[2024-07-25] MEDS: CEFEPIME 1 GM in Normal Saline 50 ML IVPB (08:58)
[2024-07-25] MEDS: Budesonide/Formoterol 160/4.5 6 GM 60 PUFF INH IH ×2 (09:11→20:26)
--- NOTE | 2024-07-25 12:58 | PHA.REVIEW2 ---
Pharmacy Admission Review Admission Clinical Review Admission Pharmacy Review: Neutropenic fever (Acute) seasonal Allergy (Intermediate, Uncoded 07/03/24 15:33) Other (See Comment) Resuscitation Status Full Code Height 5 ft 2 in Weight 81 kg Pharmacy Admission Review Renal Dosing Renal Dosing: BUN 10 mg/dL (7-18) 07/24/24 20:31 Creatinine 0.8 mg/dL (0.55-1.02) 07/24/24 20:31 Medications needing adjustments: Reviewed (CrCl 90.27 mL/min) List of meds needing interventions: Current medications are okay Anticoagulation Anticoagulation: Hgb 11.8 g/dL (11.2-15.7) 07/25/24 06:24 Hct 36.1 % (36.0-46.0) 07/25/24 06:24 Plt Count 161 10^3/uL (130-400) 07/25/24 06:24 Creatinine 0.8 mg/dL (0.55-1.02) 07/24/24 20:31 DVT Prophylaxis: Intervened (None at this time, reached out to provider) Relevant Labs Relevant Labs: Sodium 138 mmol/L (136-145) 07/24/24 20:31 Potassium 4.0 mmol/L (3.5-5.1) 07/24/24 20:31 Chloride 103 mmol/L (98-107) 07/24/24 20:31 Electrolytes, C-Reactive P, ESR: Reviewed Cardiac Review BP, HR, EF%: Reviewed (BP WNL, HR 94 - has been in the 90's all morning) QTc Review QTc: Reviewed (435 from 05/30/21 - most recent EKG on file) IV to PO Switch IV Medications: Reviewed (cefepime) Home Meds Home Med List reviewed: Intervened Relevent Home Meds Not ordered & why?: dexamethasone (taken with chemotherapy) and Advair (substituted with Symbicort per pharmacy protocol) Current Meds Current Medication Order Review: Intervened Comments: Added 2nd PRN to cetirizine, ibuprofen and prochlorperazine orders per pharmacy protocol Pharmacy Antibiotic Review Relevant Labs: WBC 5.98 10^3/uL (4.4-10.8) 07/25/24 06:24 Temperature 37.2 C Temperature 37.2 C Temperature 37.2 C Temperature 37 C Pharmacy Antibiotic Activity: Abx regimen adjustment and C/S review Comments: Patient is on cefepime 1g q24h, day 1, for neutropenic fever. Reached out to provider as recommended dose is generally 2g q24h, waiting to hear back. ANC increased from 0.93 to 2.93 and last elevated temp was yesterday at 195. Blood and tonsil cultures are pending.
--- NOTE | 2024-07-25 16:41 | PDOC.CMIN ---
Date of service: 07/25/24 Time of Service: 16:41 Care Management Initial Assmt Initial Assessment Reason for Hospitalization: Neutropenic fever Functional Status/Living Situation Patient Presentation: Recent Breast Ca dx, most recent chemo treatment 07/17/24. On neutropenic precautions. Town of Residence: [place] Resides with: Spouse ( and children) Employment Status: Employed ([employer]) Instrumental Activities of Daily Living (ADLs): Independent Medications Medication Management: No Issues/Barriers identified Advance Directives Advance Directives: Do you have an Advance Directive: N 03/09/22 08:20 AD On File at [facility]: N 03/09/22 08:20 Date Asked 07/25/24 07/25/24 00:54 AD Date Reviewed COLST On File at [facility] COLST Date Scanned Code Status Resuscitation Status Full Code Insurance Coverage/Financial Issues Insurance: [place] Care Team Visit Care Team Role Provider Type Michelle Gallardo Primary Care Provider NON-[facility] STAFF PHYSICIAN Bulmaro Damico MD Emergency Provider [facility] STAFF PHYSICIAN Mynor Chavarria MD Admit Provider [facility] STAFF PHYSICIAN Attending Provider Discharge Potential Discharge Needs: Imaging/labs Anticipated Barriers to Discharge: Medical Status Patient/Family Education Needs: Review discharge instructions, discuss Ask Me Three Transportation: Private vehicle Plan: Yani will return home once medically cleared, no additional services anticipated. She remains on IV ABX, cultures pending. Yani will follow up with her community provider and transport via private vehicle with her signficant other. PFSH All Active Problems DVT prophylaxis (Acute) Breast cancer (Chronic) IDC, G3, ER/KS+ and HER2 - pT2(m)N3 - stage 3 left breast s/p mastectomy Neutropenia with fever (Acute) IUD surveillance (Acute 07/03/24) Paragard Abnormal findings on diagnostic imaging of breast (Acute) Asthma (Chronic) uses inhaler occasionally History of thyroid disorder (Acute) Environmental allergies (Acute 10/28/14) Medical History History of gestational diabetes mellitus (GDM) Hypothyroidism Diagnosed after recurrent loss. not taking medication currently Hip dysplasia Surgical History S/P left mastectomy and targeted LN dissection History of biopsy (~04/2024) breast left Status post primary low transverse section 03/03/22. Reynaldo Weston. Breech, unsuccessful ECV History of hip surgery History of arthroscopic knee surgery Family History Mother Mouth cancer Father Diabetes Substance use disorder Alcohol use disorder Social History Smoking/Tobacco Use Status: Never Smoking risk assessment performed?: Yes Drug use: Never Substance use type: does not use Details: wine daily up until a couple of months ago. 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 Date GA/Weeks # Preg Succ Route Wgt Sex Labor Lgth Anesthesia Location Prov Complic 08/21/09 36 Yes vaginal 5 lb 7 oz Female local [facility] 08/09/19 11/20/20 39 No vaginal 7 lb 5 oz [address] Alda Samayoa 03/03/22 39 No 6 lb 4 oz Male [facility] Delivery Date: 08/21/09 Last Updated by: Shayy Ignacio MD [place] PROM, pitocin augmentation Delivery Date: 08/09/19 Last Updated by: Shayy Ignacio M.D. 6 1st trimester SAB/MAB 2017-2019. D&C x1 Delivery Date: 11/20/20 Last Updated by: Shayy Ignacio MD [place] IOL due to AMA. induction started 4 pm, delivered 8 hours later. precipitous delivery. Delivery Date: 03/03/22 Last Updated by: MD Taye Malone PCS for breech, failed ECV SDOH(Care Management) Screening Will the Patient Participate in the Screening?: Yes Do you worry about having a steady place to live?: no Problems where you live: no known problems In the past 12 months, have you had to go without electric, gas, oil or water in your home?: no Have you or anyone in your house had to go without enough food to eat?: no Has lack of transportation kept you from medical appointments or from doing things needed for daily living?: no Has anyone in your support network made you feel unsafe for any reason?: no
[2024-07-25] MEDS: Normal Saline Flush 10 ML SYR IVP (16:55)
[2024-07-25] MEDS: Magic Mouthwash 119 ML BTL 10 ML MM (16:56)
[2024-07-26] MEDS: CEFEPIME 2 GM in Normal Saline 100 ML IVPB ×2 (00:08→08:34)
[2024-07-26] MEDS: Ibuprofen 600 MG TAB PO (06:29)
[2024-07-26 07:54] VITALS: BP 118/80; PULSE 82; RESP 15; TEMP 36.9; O2SAT 94
[2024-07-26] MEDS: Budesonide/Formoterol 160/4.5 6 GM 60 PUFF INH IH (08:33)
--- NOTE | 2024-07-26 10:25 | W.PM.PROGNOT ---
Date of Service Date of service: 07/26/24 Time of Service: 10:25 Assessment and Plan Assessment and plan (1) Neutropenic fever: Status: Acute Assessment and plan: Neutropenic fever, no definite source, though sore throat (w/o additional s/s) might suggest simple viral illness (certainly has exposure both at home and at work). Will cover with empiric Cefepime and trend ANC. Objective Last Vital Signs Temp 36.9 C 07/26/24 07:54 Pulse 82 07/26/24 07:54 Resp 15 07/26/24 07:54 BP 118/80 07/26/24 07:54 Pulse Ox 94 07/26/24 07:54
--- NOTE | 2024-07-26 10:51 | DSE_ITS ---
Date of service: 07/26/24 Time of Service: 10:52 DS: Diagnosis Discharge Diagnosis (1) Neutropenic fever: Status: Acute Discharge Plan Disposition Patient Disposition: Home Condition: Improving Discharge Details Reason For Visit: Neutropenic Fever Admit Date/Time: 07/25/24 00:23 Admit Provider: Mynor Chavarria Attending Provider: Mynor Chavarria Primary Care Provider: Michelle Gallardo Hospital Course Hospital Course: This 43 years old female patient with a past medical history of breast cancer currently undergoing chemotherapy presented to the ED at [facility] on 07/24/2024 for evaluation of fever, sore throat starting 24 hours prior to presentation and tachycardia. In the ED the patient denied shortness of breath, cough, genitourinary symptoms, gastrointestinal symptoms, or other symptom of systemic illness. The patient throat was mildly erythematous without exudate as per the ED provider's exam. The workup in the emergency room was significant for WBC at 3.57 and neutropenia with an absolute neutrophil count (ANC) at 0.93. In the context of fever the ED provider elected to start broad-spectrum antibiotic and the patient was treated with a liter of normal saline, cefepime and vancomycin. Tachycardia improved. The hospitalist was contacted and the patient was admitted for neutropenic fever. During the stay the patient continued to receive IV cefepime. Blood cultures were negative at 24 hours. WBC ian to 17 and this is most likely due to leukocytosis related to tumor lysis syndrome after chemotherapy for breast cancer. The patient was initially taking ibuprofen for sore throat during the stay but remained afebrile 9 hours after last dose. With patient's absolute neutrophil count always above 500 cells per microliter, the patient was most likely not neutropenic on admission. The patient reported having had previous sore throat after chemotherapy in the past. The patient reports feeling better with improved sore throat; serology was negative for COVID, influenza, RSV, strep group C, group C and group G. The patient will be discharged home and will have to follow-up with her primary care practitioner within the next 7 days. Patient advised to return to the hospital for new fever. Discussed with Dr. Ureña Home Meds and New Rx's Prescriptions: Continued cetirizine [Allergy Relief (cetirizine)] 10 mg tablet 10 mg PO DAILY PRN fluticasone propion-salmeterol [Advair HFA] 230-21 mcg/actuation HFA aerosol inhaler 2 puff inhalation BID prochlorperazine maleate [Compazine] 10 mg tablet 10 mg PO Q6H PRN dexamethasone 4 mg tablet 4 mg PO BID PRN ParaGard T 380A 380 square mm intrauterine device 1 device intrauterine ONCE Rx Instructions: as a single dose Discharge Instructions Referrals: Michelle Gallardo [Primary Care Provider] - (F/u with PCP within the next 7 days ) Activity:: Activity as Tolerated Equipment/Supplies:: No Equipment Needed Diet:: As Tolerated Discharge Orders Discharge Orders: Discharge Order (Routine); Ordered 07/26/24 Ordered By: Eladia Mancera DS: Summary Time Spent with Patient providing and/or coordinating discharge services: Greater than 30 minutes Status at Discharge Functional status at discharge: independent ambulation Overall status at discharge: patient is progressing back to baseline Mental Status: mental status grossly normal Speech and Movement: speech and movement normal Mood: congruent mood Affect: normal affect Quality:SDOH Health Related Social Needs: No Data to Display Exam Narrative Exam Narrative: Constitutional The patient is well groomed without acute distress and has average body habitus/is obese/ is thin. HENMT: Facial structures with normal appearance Eyes: Well aligned, intact ROM Neck: Normal ROM, no meningeal signs Neuro:alert and oriented to self, person, place, time and situation. No neurological focal deficit. Chest:Chest is symmetrical and normal appearance, port to the right chest not access Resp: Normal respiratory pattern, unlabored breathing, clear lung bilaterally Cardio: regular rhythm, S1, S2, no murmur, capillary refill<3 sec., bilateral radial and dorsalis pedis pulses are positive, palpable GI: Abdomen is not distended, soft and non tender, bowel sounds are present : Negative Costovertebral angle tenderness Integumentary: No skin lesions or rash seen on exposed skin Extremities: strength 5/5 to bilateral lower and upper extremities Psych: RASS 0, congruent mood and normal affect. Psych Mental Status: mental status grossly normal Speech and Movement: speech and movement normal Mood: congruent mood Affect: normal affect DS: Data Vitals/I&O Vitals and I&O: Vital Signs Temperature 36.9 C 07/26/24 07:54 Temperature Source Temporal Artery Scan 07/26/24 07:54 Pulse 82 07/26/24 07:54 Pulse Rhythm Regular 07/25/24 01:39 Respiratory Rate 15 07/26/24 07:54 Respiratory Effort Normal, Non-Labored 07/25/24 01:39 Respiratory Depth Normal 07/25/24 01:39 Respiratory Pattern Normal 07/25/24 01:39 Blood Pressure 118/80 07/26/24 07:54 Blood Pressure Position Sitting 07/24/24 19:54 Pulse Oximetry 94 07/26/24 07:54 Oxygen Delivery Method Room Air 07/26/24 07:54 Oxygen Flow Rate 0 07/26/24 07:54 Pain Level 0 07/26/24 07:54 Intake & Output 07/25/24 07/25/24 07/26/24 11:59 23:59 11:59 Intake Total 880 / 1030 150 / 1030 460 / 460 Output Total 1250 / 2200 950 / 2200 200 / 200 Balance -370 / -1170 -800 / -1170 260 / 260 Weight 81 kg Intake: IV 100 / 250 150 / 250 100 / 100 Oral 780 / 780 360 / 360 Output: Urine 1250 / 2200 950 / 2200 200 / 200 Other: Urine Color Yellow Yellow Urine Appearance Clear Clear Urine Odor None Comment x2 voids. Patient up to bathroom and voiding independently; denies complaints or concerns. Ind to BR Voiding Methods Toilet Toilet Data Completed and Pending Labs on day of discharge: Labs from last 24 hours 07/26/24 10:28 WBC Pending RBC Pending Hgb Pending Hct Pending MCV Pending MCH Pending MCHC Pending RDW Pending Plt Count Pending MPV Pending Immature Gran % Pending Neutrophils % Pending Lymphocytes % Pending Monocytes % Pending Eosinophils % Pending Basophils % Pending Absolute Neutrophils Pending Absolute Lymphocytes Pending Absolute Monocytes Pending Absolute Eosinophils Pending Absolute Basophils Pending Sodium Pending Potassium Pending Chloride Pending Carbon Dioxide Pending Anion Gap Pending BUN Pending Creatinine Pending Est GFR (CKD-EPI 2020) Pending Glucose Pending Calcium Pending Preliminary micro results at discharge 07/24/24 21:30 Blood Culture - Preliminary Blood NO GROWTH 24 HOURS 07/24/24 20:31 Blood Culture - Preliminary Blood NO GROWTH 24 HOURS PFSH All Active Problems Neutropenic fever (Acute) IUD surveillance (Acute 07/03/24) Paragard Abnormal findings on diagnostic imaging of breast (Acute) Left breast lump (Acute) Asthma (Chronic) uses inhaler occasionally History of thyroid disorder (Acute) Environmental allergies (Acute 10/28/14) Medical History History of gestational diabetes mellitus (GDM) Hypothyroidism Diagnosed after recurrent loss. not taking medication currently Hip dysplasia Surgical History History of biopsy (~04/2024) breast left Status post primary low transverse section 03/03/22. Reynaldo Weston. Breech, unsuccessful ECV History of hip surgery History of arthroscopic knee surgery Family History Mother Mouth cancer Father Diabetes Substance use disorder Alcohol use disorder Social History Smoking/Tobacco Use Status: Never Smoking risk assessment performed?: Yes Drug use: Never Substance use type: does not use Details: wine daily up until a couple of months ago. 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 Date GA/Weeks # Preg Succ Route Wgt Sex Labor Lgth Anesth esia Location [facility] 08/21/09 36 Yes vaginal 2466.409 g Female [facility] 08/09/19 11/20/20 39 No vaginal 3316.[address] Male [address] Alda Samayoa 03/03/22 39 No 2834.952 g Male [facility] Delivery Date: 08/21/09 Last Updated by: Shayy Ignacio MD L[place] PROM, pitocin augmentation Delivery Date: 08/09/19 Last Updated by: Shayy Ignacio M.D. 6 1st trimester SAB/MAB 2017-2019. D&C x1 Delivery Date: 11/20/20 Last Updated by: Shayy Ignacio MD [place] IOL due to AMA. induction started 4 pm, delivered 8 hours later. precipitous delivery. Delivery Date: 03/03/22 Last Updated by: MD Taye Malone PCS for breech, failed ECV Time Spent with Patient Time Spent with Patient: 70-84 minutes4 Time was spent: preparing to see the patient(eg.review tests), obtaining and/or reviewing separately otained hiistory, ordering medications,tests, procedures, referring, communicating with other health critical care physician assistant, indepentently interpreting results, counseling the patient and care coordination
[2024-07-26 12:22] LABS: Abs Immature Grans 4.69 10^3/uL (0.0-0.06); HCT 36.9 % (36.0-46.0); HGB 12.2 g/dL (11.2-15.7); MCH 30.3 pg (27.0-33.0); MCHC 33.1 % (32.0-36.0); MCV 92 fL (80-95); MPV 10.9 fL (8.0-11.0); Nucleated RBC 0.2 % (0.0-0.3); Platelet Count 180 10^3/uL (130-400); RBC 4.03 10^6/uL (3.93-5.22); RDW 13.4 % (11.7-14.6); RDW-SD 45.1 fL; WBC 17.76 10^3/uL (4.4-10.8)
[2024-07-26 12:25] LABS: Anion Gap 7.1 mmol/L (3-11); BUN 9 mg/dL (7-18); CO2 27.9 mmol/L (21.0-32.0); CREATININE 0.6 mg/dL (0.55-1.02); Chloride 105 mmol/L (98-107); Estimated GFR 114.86 (mL/min/1.73m2); Glucose 94 mg/dL (74-106); Potassium 4.3 mmol/L (3.5-5.1); Sodium 140 mmol/L (136-145)
[2024-07-26 12:43] LABS: Absolute Monocyte Count 0.71 10^3/uL (0.1-0.8); Absolute Neutrophil Count 12.25 10^3/uL (1.2-6.7); Atypical Lymphocytes % 3 %; Bands % 16 %
[2024-07-26 12:44] LABS: Anisocytosis 1+; Diff Comment Manual Differential; Metamyelocytes % 5
[2024-07-26 14:39] VITALS: TEMP 37.1
[2024-07-26 15:13] LABS: Absolute Lymphocyte Count 3.91 10^3/uL (1.2-3.4)
--- NOTE | 2024-07-26 17:32 | PDOC.CMDIS ---
Date of service: 08/25/24 Time of Service: 10:21 LACE Index Scoring Tool Questions: Length of Stay (in days): 1 Was the patient admitted via the E.D.?: Yes Comorbidities: Any Tumor E.D. Visits: 0 Answers: Total Score: 6 Risk of Readmission: Low Risk Care Management Discharge Plan Reason for Hospitalization: Neutropenic Fever Discharge Plan: Yani will return home and follow up with outpatient providers. She will transport via private vehicle with her . Patient/Family Education Needs: Discharge instructions, self care needs upon discharge; Ask Me Three. SDOH Health Related Social Needs: No Data to Display
--- NOTE | 2024-07-26 18:32 | NUR.NOTE ---
Discharge education reviewed with patient. All questions answered. Patient verbalized understanding of all teaching utilizing the teach back method. All belongings sent home with patient. Stable at time of discharge. Patient denies having further questions or concerns at this time.
== END 2024-07-26 18:07 | disposition home or self-care (01) | DRG 810 ==
LOC: ER 07-25 00:54 → MS 07-25 01:32
PROVIDERS: Nurse Practitioner Acute Care; Admitting Provider General Practice; Emergency Provider Emergency Medicine; PCP Family Medicine; Visit Provider General Practice
DX: D70.9 Neutropenia, unspecified (principal); R50.81 Fever presenting with conditions classified elsewhere; R00.0 Tachycardia, unspecified; C50.912 Malignant neoplasm of unspecified site of left female breast; Z79.899 Other long term (current) drug therapy; E03.9 Hypothyroidism, unspecified; J45.909 Unspecified asthma, uncomplicated; Z95.828 Presence of other vascular implants and grafts
CPT/HCPCS: 00123; 36415; 80048; 80053; 81025; 87040; 87637; 87880; 94640; 96365; 96367; 99285; 71046; 81003; 85025; 87081; 94664; 99222; 99239; J0131; J0692

== ENCOUNTER 2024-08-06 21:15 | Observation (INO) | payer BC, MEDICAID, SELFPAY ==
[2024-08-06 21:17] VITALS: BP 112/80; PULSE 126; RESP 18; TEMP 38.1; O2SAT 96
--- NOTE | 2024-08-06 22:03 | ED.GENADUL_ITS ---
Discharge Plan Discharge Details Chief Complaint: Fever Primary Care Provider: Michelle Gallardo ED Provider: Maryann Gallo Home Meds and New Rx's Prescriptions: No Action cetirizine [Allergy Relief (cetirizine)] 10 mg tablet 10 mg PO DAILY PRN fluticasone propion-salmeterol [Advair HFA] 230-21 mcg/actuation HFA aerosol inhaler 2 puff inhalation PRN prochlorperazine maleate [Compazine] 10 mg tablet 10 mg PO Q6H PRN dexamethasone 4 mg tablet 4 mg PO BID PRN ParaGard T 380A 380 square mm intrauterine device 1 device intrauterine ONCE Rx Instructions: as a single dose HPI General Date/Time Provider Initiated Documentation: 08/06/24 21:28 . HPI Narrative: Yani is a 43-year-old female who presents to the emergency department today for evaluation of fever of 101.5. She is 8 days post chemotherapy (third round, administered every two weeks), noticed she felt chills tonight and checked her temperature orally. Admits to mild frontal headache as well as increased urination. Denies rashes, neck pain, vision changes, dizziness, congestion, sore throat, ear pain, cough, chest pain, shortness of breath, nausea/vomiting, abdominal pain, change in bowel function, blood in stool. She admits that she does have discomfort to her rectum when having a BM, has been using diaper cream with good improvement of symptoms. She was admitted last round of chemo for abx while awaiting culture results. She sees oncology at [facility]. Physical exam very reassuring. Patient is alert and oriented, no acute distress. Easy work of breathing, lung sounds clear bilaterally. Normal heart sounds. Moist mucous membranes. Abdomen soft, nondistended, nontender to palpation. Full painless range of motion to neck. No cervical or submandibular lymphadenopathy. Moist mucous membranes, no oropharyngeal erythema/exudate or tonsillar hypertrophy. Normal gait. External rectal exam performed, external hemorrhoid noted, no other abnormalities. History and presentation concerning for occult infection such as UTI, post- chemotherapy fever. I independently interpreted the following tests: CBC notable for severe leukopenia, white cell count 1.01 with ANC 0.02. CMP reassuring. UA not consistent with UTI While in the emergency department Yani received Tylenol for fever. Discussed patient presentation and physical exam with oncology resident (?Akobu); recommends ceftriaxone 2 g and admission while awaiting culture results. Discussed case with Dr. Ureña, hospitalist. Patient to be admitted to med surg. Related Data Home Medications ?Medication ?Instructions ?Recorded ?Confirmed cetirizine 10 mg tablet (Allergy 10 mg PO DAILY PRN 04/16/24 08/06/24 Relief (cetirizine)) fluticasone propionate 230 2 puff inhalation PRN 04/16/24 08/06/24 mcg-salmeterol 21 mcg/actuation HFA inhaler (Advair HFA) copper 380 square mm intrauterine 1 device intrauterine ONCE 07/03/24 08/06/24 device (ParaGard T 380A) dexamethasone 4 mg tablet 4 mg PO BID PRN 07/03/24 08/06/24 prochlorperazine maleate 10 mg 10 mg PO Q6H PRN 07/03/24 08/06/24 tablet (Compazine) Allergies Allergy/AdvReac Type Severity Reaction Status Date / Time seasonal Allergy Intermediate Other (See Uncoded 08/06/24 23:04 Comment) General Stated Complaint: Fever CHALO: 3 Review of Systems Narrative: see HPI Exam Const General: cooperative, healthy appearing, comfortable, no acute distress, well developed and well groomed Nutritional Appearance: average body habitus and well nourished Orientation: alert and oriented x3 HENMT Ears: hearing grossly normal bilaterally General nose exam: external nose normal Mouth: oral mucosae normal and moist mucous membranes Throat: posterior oropharynx normal Neck Neck: normal visual inspection, full ROM, no lymphadenopathy and no meningeal signs Resp Effort & Inspection: normal respiratory effort and able to speak in complete sentences Auscultation: clear to auscultation bilaterally Cardio Rate: regular rate Rhythm: regular rhythm GI Inspection: normal to inspection and non-distended Palpation: soft, not firm, no guarding and nontender Rectal Exam - female: visual inspection normal and tenderness (mild tenderness with palpation of external rectum) Course Vital Signs Vital signs: Vital Signs Temperature 38.1 C H 08/06/24 21:17 Pulse 126 H 08/06/24 21:17 Respiratory Rate 18 08/06/24 21:17 Blood Pressure 112/80 08/06/24 21:17 Pulse Oximetry 96 08/06/24 21:17 Temperature 38.1 C H 08/06/24 21:17 Temperature Source Tympanic 08/06/24 21:17 Pulse 126 H 08/06/24 21:17 Respiratory Rate 18 08/06/24 21:17 Blood Pressure 112/80 08/06/24 21:17 Blood Pressure Position Sitting 08/06/24 21:17 Pulse Oximetry 96 08/06/24 21:17 Oxygen Delivery Method Room Air 08/06/24 21:17 Oxygen Flow Rate 0 08/06/24 21:17 Pain Level 3 08/06/24 21:17 Lab/Test Results Lab/Test Results: 08/06/24 21:29 Blood Blood Culture - Pending 08/06/24 21:29 Blood Blood Culture - Pending Medical Decision Making Quality:SDOH Health Related Social Needs: No Data to Display PFSH All Active Problems (Updated 07/27/24 @ 00:05 by SANDRA TIJERINA) IUD surveillance (Acute 07/03/24) Paragard Abnormal findings on diagnostic imaging of breast (Acute) Left breast lump (Acute) Asthma (Chronic) uses inhaler occasionally History of thyroid disorder (Acute) Environmental allergies (Acute 10/28/14) Medical History History of gestational diabetes mellitus (GDM) Hypothyroidism Diagnosed after recurrent loss. not taking medication currently Hip dysplasia Surgical History History of biopsy (~04/2024) breast left Status post primary low transverse section 03/03/22. Reynaldo Weston. Breech, unsuccessful ECV History of hip surgery History of arthroscopic knee surgery Family History Mother Mouth cancer Father Diabetes Substance use disorder Alcohol use disorder Social History Smoking/Tobacco Use Status: Never Smoking risk assessment performed?: Yes Drug use: Never Substance use type: does not use Details: wine daily up until a couple of months ago. 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 Date GA/Weeks # Preg Succ Route Wgt Sex Labor Lgth Anesth esia Location [facility] 08/21/09 36 Yes vaginal 2466.409 g Female local [facility] 08/09/19 11/20/20 39 No vaginal 3316.894 g Male [address] Alda [place] 03/03/22 39 No 2834.952 g Male KJ Delivery Date: 08/21/09 Last Updated by: Shayy Ignacio MD [place] PROM, pitocin augmentation Delivery Date: 08/09/19 Last Updated by: Shayy Ignacio M.D. 6 1st trimester SAB/MAB 2017-2019. D&C x1 Delivery Date: 11/20/20 Last Updated by: Shayy Ignacio MD [place] IOL due to AMA. induction started 4 pm, delivered 8 hours later. precipitous delivery. Delivery Date: 03/03/22 Last Updated by: Shayy Ignacio MD [place] PCS for breech, failed ECV
[2024-08-06] MEDS: Acetaminophen 325 MG TAB 650 MG PO (22:33)
[2024-08-06 22:42] LABS: Bilirubin Negative (Negative); Blood Negative (Negative); Clarity Clear (Clear); Glucose Negative (Negative); Ketones Negative (Negative); Leukocyte Esterase Negative (Negative); Nitrite Negative (Negative); Urobilinogen 0.2 mg/dL (Up to 0.2); pH 7.5 (5-8)
[2024-08-06 22:45] LABS: Abs Immature Grans 0.07 10^3/uL (0.0-0.06); HCT 32.1 % (36.0-46.0); HGB 10.6 g/dL (11.2-15.7); MCH 29.9 pg (27.0-33.0); MCV 91 fL (80-95); MPV 11.7 fL (8.0-11.0); Platelet Count 143 10^3/uL (130-400); RBC 3.54 10^6/uL (3.93-5.22); RDW 13.7 % (11.7-14.6); RDW-SD 45.1 fL
[2024-08-06 22:59] LABS: ALT 31 U/L (14-59); AST 12 U/L (15-37); Albumin 3.5 g/dL (3.4-5.0); Alkaline Phosphatase 151 U/L (46-116); BUN 16 mg/dL (7-18); Bilirubin, Total 0.18 mg/dL (0.2-1.0); CREATININE 0.8 mg/dL (0.55-1.02); Calcium 8.9 mg/dL (8.5-10.1); Chloride 101 mmol/L (98-107); Estimated GFR 94.28 (mL/min/1.73m2); Glucose 116 mg/dL (74-106); Magnesium 1.9 mg/dL (1.8-2.4); Potassium 3.9 mmol/L (3.5-5.1); Sodium 137 mmol/L (136-145); Total Protein 6.9 g/dL (6.4-8.2)
[2024-08-06 23:10] LABS: Absolute Lymphocyte Count 0.81 10^3/uL (1.2-3.4); Absolute Monocyte Count 0.16 10^3/uL (0.1-0.8); Atypical Lymphocytes % 11 %; Bands % 1 %
[2024-08-06 23:11] LABS: Diff Comment Manual Differential; Metamyelocytes % 2; RBC Morphology Normal
[2024-08-06 23:12] LABS: Absolute Neutrophil Count 0.02 10^3/uL (1.2-6.7); WBC 1.01 10^3/uL (4.4-10.8)
[2024-08-06 23:15] LABS: COVID-19 PCR Negative (Negative); Influenza A PCR Negative (Negative); Influenza B PCR Negative (Negative); RSV PCR Negative (Negative); Source NASOPHARYNX
[2024-08-06 23:17] VITALS: BP 100/62; PULSE 106; RESP 16; O2SAT 96
[2024-08-06 23:18] VITALS: TEMP 37.4
[2024-08-06] MEDS: cefTRIAXone 2 GM/50 ML BAG IVPB (23:18)
[2024-08-06] MEDS: Normal Saline 1,000 ML 1000 ML IV (23:19)
[2024-08-06 23:31] VITALS: PULSE 101; RESP 20; O2SAT 95
[2024-08-06 23:40] VITALS: PULSE 96; RESP 18; O2SAT 95
--- NOTE | 2024-08-06 23:44 | HPE_ITS ---
Date of service: 08/06/24 Time of Service: 23:44 Assessment and Plan Assessment and plan (1) Neutropenia with fever: Status: Acute Assessment and plan: Recently admitted for mild neutropenia, now severe with ANC <500. Secondary to AC-T therapy for breast cancer. Fortunately she is low risk per CISNE and [facility] risk indices. This means she could be possibly managed as an outpatient after initial 48 hour observation. Given ceftriaxone in the ED. Change to ceftazidime as more studied in neutropenic fever. Blood and urine cultures pending, viral screens negative. (2) Breast cancer: Status: Chronic Assessment and plan: s/p 3 cycles of AC-T chemotherapy with Adriamycin (doxorubicin), Cyclophosphamide, and Taxol (paclitaxel) Qualifiers: Breast location: unspecified site of breast Estrogen receptor status: p ositive Laterality: left Patient sex: female Qualified Code(s): C50.912 - Malignant neoplasm of unspecified site of left female breast; Z17.0 - Estrogen receptor positive status [ER+] (3) Asthma: Status: Chronic Assessment and plan: Not active, continue controller inahler. (4) DVT prophylaxis: Status: Acute Assessment and plan: enoxaparin due to cancer and some decreased acitivity. monitor platelets History of Present Illness History of Present Illness Chief Complaint: fevers Narrative: 43 yo F with breast cancer on AC-T chemotherapy q 2 weeks after left mastectomy who was recently admitted 07/25- for fever with moderate neutropenia who presents 8 days after her 3rd round of chemotherapy with recurrent fever of 101.5 at home. She describes feeling chills this afternoon around 3pm, took her temperature orally and was high. Otherwise she has been feeling well. She hasn't had a lot of other side effects from the chemo so far. No headaches, no URI symtoms such rhinorrhea, sore throat. No cough or SOB or wheezing. No diarrhea or abodminal pain. No rashes. 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 She wears a mask at school and is careful with cleaning. she was admitted with fever and sore throat 07/25 overnight. Her ANC was never below 500, was on cefepime, discharged off of antibiotics. Cultures were negative. Review of Systems All systems reviewed & are unremarkable except as noted in HPI and below Gastrointestinal Gastrointestinal: Denies melena, Denies hematochezia, Denies diarrhea, Denies loose stools and Reports other (perianal irritation after BMs) PFSH All Active Problems DVT prophylaxis (Acute) Breast cancer (Chronic) IDC, G3, ER/WA+ and HER2 - pT2(m)N3 - stage 3 left breast s/p mastectomy Neutropenia with fever (Acute) Abnormal findings on diagnostic imaging of breast (Acute) IUD surveillance (Acute 07/03/24) Paragard History of thyroid disorder (Acute) Asthma (Chronic) uses inhaler occasionally Environmental allergies (Acute 10/28/14) Medical History History of gestational diabetes mellitus (GDM) Hypothyroidism Diagnosed after recurrent loss. not taking medication currently Hip dysplasia Surgical History S/P left mastectomy and targeted LN dissection History of biopsy (~04/2024) breast left Status post primary low transverse section 03/03/22. Reynaldo Weston. Breech, unsuccessful ECV History of hip surgery History of arthroscopic knee surgery Family History Mother Mouth cancer Father Diabetes Substance use disorder Alcohol use disorder Social History Smoking/Tobacco Use Status: Never Smoking risk assessment performed?: Yes Drug use: Never Substance use type: does not use Details: wine daily up until a couple of months ago. 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 Date GA/Weeks # Preg Succ Route Wgt Sex Labor Lgth Anesth esia Location [facility] 08/21/09 36 Yes vaginal 2466.409 g Female local [facility] 08/09/19 11/20/20 39 No vaginal 3316.[address] Alda [place] 03/03/22 39 No 2834.952 g Male KJ Delivery Date: 08/21/09 Last Updated by: Shayy Ignacio MD [place] PROM, pitocin augmentation Delivery Date: 08/09/19 Last Updated by: Shayy Ignacio M.D. 6 1st trimester SAB/MAB 2017-early 2019. D&C x1 Delivery Date: 11/20/20 Last Updated by: Shayy Ignacio MD [place] IOL due to AMA. induction started 4 pm, delivered 8 hours later. precipitous delivery. Delivery Date: 03/03/22 Last Updated by: Shayy Ignacio MD [place] [facility] for breech, failed ECV Meds Allergies and Home Medications Allergies Allergy/AdvReac Type Severity Reaction Status Date / Time seasonal Allergy Intermediate Other (See Uncoded 08/06/24 23:04 Comment) Home Medications ?Medication ?Instructions ?Recorded ?Confirmed ?Type cetirizine 10 mg tablet (Allergy 10 mg PO DAILY PRN 04/16/24 08/06/24 History Relief (cetirizine)) fluticasone propionate 230 2 puff inhalation PRN 04/16/24 08/06/24 History mcg-salmeterol 21 mcg/actuation HFA inhaler (Advair HFA) copper 380 square mm intrauterine 1 device intrauterine ONCE 07/03/24 08/06/24 History device (ParaGard T 380A) dexamethasone 4 mg tablet 4 mg PO BID PRN 07/03/24 08/06/24 History prochlorperazine maleate 10 mg 10 mg PO Q6H PRN 07/03/24 08/06/24 History tablet (Compazine) Exam Narrative Exam Narrative: GEN: Alert and oriented x 4, pleasant and cooperative, gives linear history. No acute distress at rest. HEENT: Head atraumatic. Conjunctiva clear, no icterus. PEERL, EOMI. no rhinorrhea. MMM, OP benign. Neck is supple with no masses or lymphadenopathy, trachea midline LUNGS: CTAB with normal effort CV: RRR with no murmurs, gallops, or rubs. ABD: active bowel sounds, soft, nontender and nondistended. No masses. EXT: no cyanosis, clubbing, or edema. s/p left mastectomy MSK: No joint redness or swelling NEURO: CN 2-12 grossly intact. Normal movement of 4 extremities. Normal speech and coordination. No tremor SKIN: No rashes or open wounds. RECTAL: Deferred, see ED note PSYCH: normal mood and affect Results Labs 08/06/24 22:27 08/06/24 22:27 Labs: Laboratory Results - last 24 hr 08/06/24 08/06/24 22:04 22:27 WBC 1.01 L* RBC 3.54 L Hgb 10.6 L Hct 32.1 L MCV 91 MCH 29.9 MCHC 33.0 RDW 13.7 Plt Count 143 MPV 11.7 H Immature Gran % See Differential Neutrophils % 1.0 Band Neutrophils % 1 Lymphocytes % 69.0 Atypical Lymphs % 11 Monocytes % 16.0 Eosinophils % 0.0 Basophils % 0.0 Metamyelocytes % 2 Nucleated RBC % 1.0 H Absolute Neutrophils 0.02 L* Absolute Lymphocytes 0.81 L Absolute Monocytes 0.16 Absolute Eosinophils 0.00 Absolute Basophils 0.00 RBC Morphology Normal Sodium 137 Potassium 3.9 Chloride 101 Carbon Dioxide 25.0 Anion Gap 11.0 BUN 16 Creatinine 0.8 Est GFR (CKD-EPI 2020) 94.28 Glucose 116 H Calcium 8.9 Magnesium 1.9 Total Bilirubin 0.18 L AST 12 L ALT 31 Alkaline Phosphatase 151 H Total Protein 6.9 Albumin 3.5 Urine Color Yellow Urine Clarity Clear Urine pH 7.5 Ur Specific [place] 1.020 Urine Protein Negative Urine Ketones Negative Urine Blood Negative Urine Nitrite Negative Urine Bilirubin Negative Urine Urobilinogen 0.2 Ur Leukocyte Esterase Negative Urine Glucose Negative COVID-19 Source NASOPHARYNX SARS-CoV-2 (PCR) Negative Influenza Type A (PCR) Negative Influenza Type B (PCR) Negative RSV (PCR) Negative Last Vital Signs Temp 37.4 C 08/06/24 23:18 Pulse 106 H 08/06/24 23:17 Resp 16 08/06/24 23:17 BP 100/62 08/06/24 23:17 Pulse Ox 96 08/06/24 23:17 Time Spent Time spent with Patient: 55-74 minutes Time was spent: preparing to see the patient(eg.review tests), obtaining and/or reviewing separately otained hiistory, ordering medications,tests, procedures, referring, communicating with other health social worker palliative care, indepentently interpreting results, counseling the patient and care coordination
[2024-08-06 23:50] VITALS: PULSE 93; RESP 18; O2SAT 94
[2024-08-07] VITALS (12 sets, daily range): BP systolic 100–115; BP diastolic 59–74; PULSE 81–99; RESP 14–19; TEMP 36.1–37.8; O2SAT 95–98
--- NOTE | 2024-08-07 03:46 | W.PC.ACHO ---
Registration Status: Primary Language: Preferred Language: ED Information & Data Chief Complaint Fever 08/07/24 00:43 Chief Complaint Fever 08/06/24 22:13 Triage Note Pt states she has a fever of 08/06/24 21:17 100.5 and was asked to come in by oncologist; this happens on day 8 after chemo (this is the third round). Slight headache Medical / Surgical History (Last Reviewed 08/07/24 @ 00:10 by Kevin Ureña) History of gestational diabetes mellitus (GDM) Hypothyroidism Hip dysplasia (Last Reviewed 08/07/24 @ 00:10 by Kevin Ureña) S/P left mastectomy History of biopsy (~04/2024) Status post primary low transverse section History of hip surgery History of arthroscopic knee surgery Most Recent Vital Signs Temperature 37.4 C 08/07/24 01:25 Temperature Source Temporal Artery Scan 08/07/24 00:43 Pulse 91 H 08/07/24 01:25 Pulse Rhythm Regular 08/07/24 01:01 Pulse 99 H 08/07/24 00:30 Respiratory Rate 18 08/07/24 01:25 Respiratory Effort Normal 08/07/24 01:01 Respiratory Depth Normal 08/07/24 01:01 Respiratory Pattern Normal 08/07/24 01:01 Blood Pressure 106/74 08/07/24 01:25 Blood Pressure Mean 71 08/07/24 00:00 Blood Pressure Position Sitting 08/07/24 00:43 Pulse Oximetry 97 08/07/24 01:25 Oxygen Delivery Method Room Air 08/07/24 01:25 Oxygen Flow Rate 0 08/07/24 01:25 Pain Level 0 08/07/24 01:25 Allergies seasonal Allergy (Intermediate, Uncoded 08/06/24 23:04) Other (See Comment) 04/16/24- pt reports runny/ stuffy nose Precautions Isolation Protective precaution 08/07/24 00:43 IV IV Catheter Type [Right Peripheral IV Antecubital] IV Catheter Gauge [Right 18 Antecubital] Diet Orders Category Date Time Status Regular/Normal [DIET] Nutrition 08/07/24 Breakfast Active Diagnostics 08/07/24 08/06/24 08/06/24 Range/Units 05:35 22:27 22:04 WBC Pending 1.01 L* (4.4-10.8) 10^3/uL RBC Pending 3.54 L (3.93-5.22) 10^6/uL Hgb Pending 10.6 L (11.2-15.7) g/dL Hct Pending 32.1 L (36.0-46.0) % MCV Pending 91 (80-95) fL MCH Pending 29.9 (27.0-33.0) pg MCHC Pending 33.0 (32.0-36.0) % RDW Pending 13.7 (11.7-14.6) % Plt Count Pending 143 (130-400) 10^3/uL MPV Pending 11.7 H (8.0-11.0) fL Immature Gran % Pending See Differential Neutrophils % Pending 1.0 % Band Neutrophils % 1 % Lymphocytes % Pending 69.0 % Atypical Lymphs % 11 % Monocytes % Pending 16.0 % Eosinophils % Pending 0.0 % Basophils % Pending 0.0 % Metamyelocytes % 2 Nucleated RBC % 1.0 H (0.0-0.3) % Absolute Neutrophils Pending 0.02 L* (1.2-6.7) 10^3/uL Absolute Lymphocytes Pending 0.81 L (1.2-3.4) 10^3/uL Absolute Monocytes Pending 0.16 (0.1-0.8) 10^3/uL Absolute Eosinophils Pending 0.00 (0.0-0.7) 10^3/uL Absolute Basophils Pending 0.00 (0.0-0.2) 10^3/uL RBC Morphology Normal Sodium 137 (136-145) mmol/L Potassium 3.9 (3.5-5.1) mmol/L Chloride 101 (98-107) mmol/L Carbon Dioxide 25.0 (21.0-32.0) mmol/L Anion Gap 11.0 (3-11) mmol/L BUN 16 (7-18) mg/dL Creatinine 0.8 (0.55-1.02) mg/dL Est GFR (CKD-EPI 2020) 94.28 (mL/min/1.73m2) Glucose 116 H (74-106) mg/dL Calcium 8.9 (8.5-10.1) mg/dL Magnesium 1.9 (1.8-2.4) mg/dL Total Bilirubin 0.18 L (0.2-1.0) mg/dL AST 12 L (15-37) U/L ALT 31 (14-59) U/L Alkaline Phosphatase 151 H (46-116) U/L Total Protein 6.9 (6.4-8.2) g/dL Albumin 3.5 (3.4-5.0) g/dL Urine Color Yellow (Yellow) Urine Clarity Clear (Clear) Urine pH 7.5 (5-8) Ur Specific [place] 1.020 (1.005-1.025) Urine Protein Negative (Neg-Trace) mg/dL Urine Ketones Negative (Negative) mg/dL Urine Blood Negative (Negative) Urine Nitrite Negative (Negative) Urine Bilirubin Negative (Negative) Urine Urobilinogen 0.2 (Up to 0.2) mg/dL Ur Leukocyte Esterase Negative (Negative) Urine Glucose Negative (Negative) mg/dL COVID-19 Source NASOPHARYNX SARS-CoV-2 (PCR) Negative (Negative) Influenza Type A (PCR) Negative (Negative) Influenza Type B (PCR) Negative (Negative) RSV (PCR) Negative (Negative) 08/06/24 22:27 Blood Culture - Pending Blood 08/06/24 22:27 Blood Culture - Pending Blood Intake and Output - 24 Hour Total 08/06/24 21:15 thru 08/07/24 01:01 Intake Total 1050 Balance 1050 Weight 82.1 kg Intake: IV 1050 Other: Urine Appearance Clear Falls Risk Assessment History of Falls No History 08/07/24 01:01 Contributing Factors No Factors 08/07/24 01:01 Ambulatory Aids Independent 08/07/24 01:01 Tubes/Lines None 08/07/24 01:01 Gait Evaluation No gait disturbance 08/07/24 01:01 Cognition No cognitive impairment 08/07/24 01:01 Fall Total Score 0 08/07/24 01:01 Level of Risk Standard/Low Risk 08/07/24 01:01 Problems (Last Reviewed 08/07/24 @ 00:10 by Kevin Ureña) DVT prophylaxis (Acute) Breast cancer (Chronic) Neutropenia with fever (Acute) Asthma (Chronic) v v v v v v v v v Sending and/or Receiving Nurses: Please use comment section below to note any information pertinent to the patient hand-off not included above. Information / Comments: Pt 8 days post chemo, c/o fever/chills. Fever of 100.5 orally at home. Pt met sepsis criteria upon arrival to the ED. WBCs of 1 Neg Fluvid/RSV. Pt has a RAC and right chest port (not accessed). Tylenol and ceftriaxone given in ED. VSS, Ind, A&Ox3. Reverse precautions in place. Report received from: Mic Coy RN
[2024-08-07 07:29] LABS: HCT 30.7 % (36.0-46.0); MCH 29.9 pg (27.0-33.0); MCHC 32.6 % (32.0-36.0); MCV 92 fL (80-95); MPV 11.7 fL (8.0-11.0); Platelet Count 135 10^3/uL (130-400); RBC 3.35 10^6/uL (3.93-5.22); RDW 13.8 % (11.7-14.6)
[2024-08-07 07:51] LABS: Absolute Basophil Count 0.04 10^3/uL (0.0-0.2); Absolute Lymphocyte Count 0.87 10^3/uL (1.2-3.4); Absolute Monocyte Count 0.41 10^3/uL (0.1-0.8)
[2024-08-07 07:52] LABS: Diff Comment Manual Differential; Metamyelocytes % 2; Myelocytes % 2; RBC Morphology Normal
[2024-08-07 07:55] LABS: Absolute Neutrophil Count 0.09 10^3/uL (1.2-6.7); WBC 1.47 10^3/uL (4.4-10.8)
[2024-08-07] MEDS: Enoxaparin 40 MG/0.4 ML SYR SC (08:42)
[2024-08-07] MEDS: cefTAZidime 2,000 MG in Normal Saline 100 ML 200 MG IVPB ×3 (08:43→22:59)
--- NOTE | 2024-08-07 10:17 | INITIAL_ITS ---
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) Instrumental Activities of Daily Living (ADLs): Independent Advance Directives Advance Directives: Do you have an Advance Directive: N 03/09/22 08:20 AD On File at [facility]: N 03/09/22 08:20 Date Asked 08/07/24 08/07/24 00:58 AD Date Reviewed COLST On File at [facility] COLST Date Scanned Code Status Resuscitation Status Full Code Insurance Coverage/Financial Issues Insurance: BC/BS Medicaid Care Team Visit Care Team Role Provider Type Michelle Gallardo Primary Care Provider NON-[facility] STAFF PHYSICIAN Maryann Bhandari Emergency Provider NURSE PRACTITIONER Kevin Ureña Admit Provider [facility] STAFF PHYSICIAN Attending Provider Discharge Potential Discharge Needs: Consult Consult Services Needed: Palliative Anticipated Barriers to Discharge: Medical Status Patient/Family Education Needs: Review discharge instructions, discuss Ask Me Three Transportation: Private vehicle Plan: Yani will return home once medically cleared, no additional services anticipated. She remains on IV ABX, cultures pending. Yani will follow up with her community provider and transport via private vehicle with her signficant other. PFSH All Active Problems DVT prophylaxis (Acute) Breast cancer (Chronic) IDC, G3, ER/LA+ and HER2 - pT2(m)N3 - stage 3 left breast s/p mastectomy Neutropenia with fever (Acute) IUD surveillance (Acute 07/03/24) Paragard Abnormal findings on diagnostic imaging of breast (Acute) Asthma (Chronic) uses inhaler occasionally History of thyroid disorder (Acute) Environmental allergies (Acute 10/28/14) Medical History History of gestational diabetes mellitus (GDM) Hypothyroidism Diagnosed after recurrent loss. not taking medication currently Hip dysplasia Surgical History S/P left mastectomy and targeted LN dissection History of biopsy (~04/2024) breast left Status post primary low transverse section 03/03/22. Reynaldo Weston. Breech, unsuccessful ECV History of hip surgery History of arthroscopic knee surgery Family History Mother Mouth cancer Father Diabetes Substance use disorder Alcohol use disorder Social History Smoking/Tobacco Use Status: Never Smoking risk assessment performed?: Yes Drug use: Never Substance use type: does not use Details: wine daily up until a couple of months ago. 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 Date GA/Weeks # Preg Succ Route Wgt Sex Labor Lgth Anesth esia Location Prov Complic 08/21/09 36 Yes vaginal 5 lb 7 oz Female local [facility] C 08/09/19 11/20/20 39 No vaginal 7 lb [address] Tian Samayoa 03/03/22 39 No 6 lb 4 oz Male [facility] Delivery Date: 08/21/09 Last Updated by: Shayy Ignacio MD [facility] PROM, pitocin augmentation Delivery Date: 08/09/19 Last Updated by: Shayy Ignacio M.D. 6 1st trimester SAB/MAB 2017-2019. D&C x1 Delivery Date: 11/20/20 Last Updated by: Shayy Ignacio MD [place] IOL due to AMA. induction started 4 pm, delivered 8 hours later. precipitous delivery. Delivery Date: 03/03/22 Last Updated by: MD Taye Malone PCS for breech, failed ECV SDOH(Care Management) Screening Will the Patient Participate in the Screening?: Unable to obtain Do you worry about having a steady place to live?: choose not to answer
--- NOTE | 2024-08-07 11:29 | W.NUTRFU ---
Date of service: 08/07/24 Time of Service: 11:29 Nutrition Note NOTE: 43yo female admitted with neutropenic fever s/p chemotherapy for breast cancer. Ordered for regular diet with no other specific indications. Kitchen was asked to avoid raw/fresh produce by nursing staff as it was sent up at breakfast. Although evidence does not support neutropenic diets currently, it seems to be clinical policy and diet order was modified by this keno writer/runner to make sure raw produce will be avoided for the anticipated short admission and will work on getting a clear, up-to-date policy between [facility] and food service associate regarding this. Pt's weight history relatively stable with current BMI of 33.1, suggesting obesity. ~3kg wt loss noted x 3 months. Pt with good po intake this admission per nursing. Pt initially assessed at low nutrition risk currently. Will monitor for changes in intake, any concerning labs related to nutrition status. Time Spent in Nutritional Counseling and Treatment: 0
[2024-08-07] MEDS: Normal Saline Flush 10 ML SYR (17:15)
--- NOTE | 2024-08-07 18:06 | W.PM.PROGNOT ---
Date of Service Date of service: 08/07/24 Time of Service: 18:06 Assessment and Plan Assessment and plan (1) Neutropenia with fever: Status: Acute Assessment and plan: Recently admitted for mild neutropenia, now severe with ANC <500. Secondary to AC-T therapy for breast cancer. Fortunately she is low risk per CISNE and MASCC risk indices. This means she could be possibly managed as an outpatient after initial 48 hour observation. Given ceftriaxone in the ED. Change to ceftazidime as more studied in neutropenic fever. Blood and urine cultures pending, viral screens negative. Pegfilgrastim auto injector failed - 6 mg given here. (2) Breast cancer: Status: Chronic Assessment and plan: s/p 3 cycles of AC-T chemotherapy with Adriamycin (doxorubicin), Cyclophosphamide, and Taxol (paclitaxel) Qualifiers: Breast location: unspecified site of breast Estrogen receptor status: positive Patient sex: female Laterality: left Qualified Code(s): C50.912 - Malignant neoplasm of unspecified site of left female breast; Z17.0 - Estrogen receptor positive status [ER+] (3) Asthma: Status: Chronic Assessment and plan: Not active, continue controller inahler. (4) DVT prophylaxis: Status: Acute Assessment and plan: enoxaparin due to cancer and some decreased acitivity. monitor platelets (135 today) Subjective Subjective Patient reports: no new complaints, feels better, tolerating liquids well, tolerating a regular diet, voiding w/o difficulty, bowel movement and afebrile; denies flatus, diarrhea, nausea, vomiting or shortness of breath Interval history since last seen: Patient states she has improved when asked if the pegfilgrastim 6 mg (colony stimulating factor) auto injector worked, she states she did not feel anything and did not hear it beep. Exam Narrative Exam Narrative: GEN: Alert and oriented x 4, pleasant and cooperative, gives linear history. No acute distress at rest. HEENT: Head atraumatic. Conjunctiva clear, no icterus. PEERL, EOMI. no rhinorrhea. MMM, OP benign. Neck is supple with no masses or lymphadenopathy, trachea midline LUNGS: CTAB with normal effort CV: RRR with no murmurs, gallops, or rubs. ABD: active bowel sounds, soft, nontender and nondistended. No masses. EXT: no cyanosis, clubbing, or edema. s/p left mastectomy MSK: No joint redness or swelling NEURO: CN 2-12 grossly intact. Normal movement of 4 extremities. Normal speech and coordination. No tremor SKIN: No rashes or open wounds. RECTAL: Deferred, see ED note PSYCH: normal mood and affect Objective Last Vital Signs Temp 37.4 C 08/07/24 16:34 Pulse 81 08/07/24 16:34 Resp 15 08/07/24 16:34 BP 115/73 08/07/24 16:34 Pulse Ox 98 08/07/24 16:34 Laboratory Results - last 24 hr 08/06/24 08/06/24 08/07/24 22:04 22:27 06:09 WBC 1.01 L* 1.47 L* RBC 3.54 L 3.35 L Hgb 10.6 L 10.0 L Hct 32.1 L 30.7 L MCV 91 92 MCH 29.9 29.9 MCHC 33.0 32.6 RDW 13.7 13.8 Plt Count 143 135 MPV 11.7 H 11.7 H Immature Gran % See Differential See Differential Neutrophils % 1.0 6.0 Band Neutrophils % 1 Lymphocytes % 69.0 59.0 Atypical Lymphs % 11 Monocytes % 16.0 28.0 Eosinophils % 0.0 0.0 Basophils % 0.0 3.0 Metamyelocytes % 2 2 Myelocytes % 2 Nucleated RBC % 1.0 H 0.0 Absolute Neutrophils 0.02 L* 0.09 L* Absolute Lymphocytes 0.81 L 0.87 L Absolute Monocytes 0.16 0.41 Absolute Eosinophils 0.00 0.00 Absolute Basophils 0.00 0.04 RBC Morphology Normal Normal Sodium 137 Potassium 3.9 Chloride 101 Carbon Dioxide 25.0 Anion Gap 11.0 BUN 16 Creatinine 0.8 Est GFR (CKD-EPI 2020) 94.28 Glucose 116 H Calcium 8.9 Magnesium 1.9 Total Bilirubin 0.18 L AST 12 L ALT 31 Alkaline Phosphatase 151 H Total Protein 6.9 Albumin 3.5 Urine Color Yellow Urine Clarity Clear Urine pH 7.5 Ur Specific Gordon 1.020 Urine Protein Negative Urine Ketones Negative Urine Blood Negative Urine Nitrite Negative Urine Bilirubin Negative Urine Urobilinogen 0.2 Ur Leukocyte Esterase Negative Urine Glucose Negative COVID-19 Source NASOPHARYNX SARS-CoV-2 (PCR) Negative Influenza Type A (PCR) Negative Influenza Type B (PCR) Negative RSV (PCR) Negative Time Spent with Patient Time Spent with Patient: 25-34 minutes Time was spent: preparing to see the patient(eg.review tests), ordering medications,tests, procedures, referring, communicating with other health health care marketing manager, indepentently interpreting results, counseling the patient and care coordination
[2024-08-07] MEDS: Zolpidem 5 MG TAB PO (20:52)
[2024-08-08 06:08] VITALS: BP 107/63; PULSE 86; RESP 18; TEMP 36.6; O2SAT 96
[2024-08-08 06:09] LABS: HCT 31.5 % (36.0-46.0); HGB 10.7 g/dL (11.2-15.7); MCH 30.4 pg (27.0-33.0); MCV 90 fL (80-95); MPV 11.5 fL (8.0-11.0); Platelet Count 155 10^3/uL (130-400); RBC 3.52 10^6/uL (3.93-5.22); RDW 13.9 % (11.7-14.6); RDW-SD 44.9 fL
[2024-08-08 06:19] LABS: Anion Gap 7.8 mmol/L (3-11); BUN 8 mg/dL (7-18); CO2 26.2 mmol/L (21.0-32.0); CREATININE 0.6 mg/dL (0.55-1.02); Calcium 8.5 mg/dL (8.5-10.1); Chloride 105 mmol/L (98-107); Estimated GFR 114.86 (mL/min/1.73m2); Glucose 100 mg/dL (74-106); Magnesium 2.4 mg/dL (1.8-2.4); Sodium 139 mmol/L (136-145)
[2024-08-08 06:54] LABS: Absolute Basophil Count 0.07 10^3/uL (0.0-0.2); Absolute Lymphocyte Count 2.38 10^3/uL (1.2-3.4); Absolute Monocyte Count 0.77 10^3/uL (0.1-0.8); Absolute Neutrophil Count 3.22 10^3/uL (1.2-6.7); Bands % 17 %; Diff Comment Manual Differential; Metamyelocytes % 6; Myelocytes % 2
[2024-08-08 06:55] LABS: RBC Morphology Normal
--- NOTE | 2024-08-08 08:32 | PDOC.CMPRO ---
Date of service: 08/08/24 Time of Service: 08:33 Care Management Progress Note Progress Note Text Progress Note Text: Yani was sitting up in bed when CM met with her.She was pleasant in interaction and engaged easily with CM. yani reported that she is feeling fine and would like to be able to go home. She has been told that the provider is waiting to ensure her blood cultures are negative before she is discharged. They are negative at 24 hours and she remains afebrile. Yani's WBC is now 7.0 and her neutropenic precautions have been discontinued. Discharge Potential Discharge Needs: PCP F/U Appt and Other (Oncology) Anticipated Barriers to Discharge: None Identified Patient/Family Education Needs: Review discharge instructions, discuss Ask Me Three Transportation: Private vehicle Plan: Anticipate Yani will be discharged home with no new services when medically cleared. She will follow up with her PCP and plan of care and transport with family. CM will follow and assess for discharge concerns. SDOH(Care Management) Screening Will the Patient Participate in the Screening?: Unable to obtain Do you worry about having a steady place to live?: choose not to answer
[2024-08-08 08:48] VITALS: BP 110/91; PULSE 94; RESP 16; TEMP 37; O2SAT 97
[2024-08-08] MEDS: cefTAZidime 2,000 MG in Normal Saline 100 ML 200 MG IVPB ×2 (08:53→16:10)
[2024-08-08] MEDS: Normal Saline Flush 10 ML SYR IVP ×2 (08:54→16:16)
[2024-08-08] MEDS: Enoxaparin 40 MG/0.4 ML SYR SC (08:54)
--- NOTE | 2024-08-08 12:21 | PGE_ITS ---
Date of Service Date of service: 08/08/24 Time of Service: 12:21 Assessment and Plan Assessment and plan (1) Neutropenia with fever: Status: Acute Assessment and plan: Fortunately she is low risk per CISNE and MASCC risk indices. This means she could be possibly managed as an outpatient after initial 48 hour observation. Continue ceftazidime as more studied in neutropenic fever. Blood and urine culture negative to date viral screens negative. Pegfilgrastim auto injector failed - 6 mg was ordered but was not given WBC 7 today, improved, absolute neutrophils improved to 3.[address] [place] [facility] [place] his recommendation is for her to stay until BC are 48h - discussed this with patient and she is willing to stay until tomorrow am when we get results. Reviewed today's labs and that they were encouraging. He also recommended she be discharged on a floxacillin with intrabdominal coverage 7-[address] Saige peñaloza recommends discharge with cipro and augmentin. [place] [facility] [place] and verify dc antibiotic before discharge - they recommend 7- 10 days of out patient antibiotics. (2) Breast cancer: Status: Chronic Assessment and plan: s/p 3 cycles of AC-T chemotherapy with Adriamycin (doxorubicin), Cyclophosphamide, and Taxol (paclitaxel) Qualifiers: Breast location: unspecified site of breast Estrogen receptor status: positive Laterality: left Patient sex: female Qualified Code(s): C50.912 - Malignant neoplasm of unspecified site of left female breast; Z17.0 - Estrogen receptor positive status [ER+] (3) Asthma: Status: Chronic Assessment and plan: Not active, continue controller inahler. (4) DVT prophylaxis: Status: Acute Assessment and plan: enoxaparin due to cancer and some decreased acitivity. monitor platelets (155 today) Subjective Subjective Patient reports: no new complaints, feels better, tolerating liquids well, tolerating a regular diet, voiding w/o difficulty, bowel movement and afebrile; denies diarrhea, vomiting or shortness of breath Interval history since last seen: Patient reports feeling better today. She is anxious to go home. She does under stand that the blood cultures should be negatvie for 48h before she is discharged. She is ok to stay. Exam Narrative Exam Narrative: GEN: Alert and oriented x 4, pleasant and cooperative, gives linear history. No acute distress at rest. HEENT: Head atraumatic. Conjunctiva clear, no icterus. PEERL, EOMI. no rhinorrhea. MMM, OP benign. Neck is supple with no masses or lymphadenopathy, trachea midline LUNGS: CTAB with normal effort CV: RRR with no murmurs, gallops, or rubs. ABD: active bowel sounds, soft, nontender and nondistended. No masses. EXT: no cyanosis, clubbing, or edema. s/p left mastectomy MSK: No joint redness or swelling NEURO: CN 2-12 grossly intact. Normal movement of 4 extremities. Normal speech and coordination. No tremor SKIN: No rashes or open wounds. RECTAL: Deferred, see ED note PSYCH: normal mood and affect Objective Last Vital Signs Temp 37.0 C 08/08/24 08:48 Pulse 94 H 08/08/24 08:48 Resp 16 08/08/24 08:48 BP 110/91 H 08/08/24 08:48 Pulse Ox 97 08/08/24 08:48 Laboratory Results - last 24 hr 08/08/24 05:55 WBC 7.00 RBC 3.52 L Hgb 10.7 L Hct 31.5 L MCV 90 MCH 30.4 MCHC 34.0 RDW 13.9 Plt Count 155 MPV 11.5 H Immature Gran % 0.0 Neutrophils % 29.0 Band Neutrophils % 17 Lymphocytes % 34.0 Monocytes % 11.0 Eosinophils % 0.0 Basophils % 1.0 Metamyelocytes % 6 Myelocytes % 2 Nucleated RBC % 0.0 Absolute Neutrophils 3.22 Absolute Lymphocytes 2.38 Absolute Monocytes 0.77 Absolute Eosinophils 0.00 Absolute Basophils 0.07 RBC Morphology Normal Sodium 139 Potassium 4.0 Chloride 105 Carbon Dioxide 26.2 Anion Gap 7.8 BUN 8 Creatinine 0.6 Est GFR (CKD-EPI 2020) 114.86 Glucose 100 Calcium 8.5 Magnesium 2.4 Time Spent with Patient Time Spent with Patient: 35-49 minutes Time was spent: preparing to see the patient(eg.review tests), ordering medications,tests, procedures, referring, communicating with other health wound care specialist, indepentently interpreting results, counseling the patient and care coordination
--- NOTE | 2024-08-08 12:41 | PHACLINREV_ITS ---
Pharmacy Admission Review Admission Clinical Review Admission Pharmacy Review: DVT prophylaxis (Acute) Neutropenia with fever (Acute) seasonal Allergy (Intermediate, Uncoded 08/06/24 23:04) Other (See Comment) Resuscitation Status Full Code Height 5 ft 2 in Weight 82.1 kg Comments Comments/Follow Ups: Reach out to provider again regarding Advair if patient is not discharged (home med not ordered) Pharmacy Admission Review Renal Dosing Renal Dosing: BUN 8 mg/dL (7-18) 08/08/24 05:55 Creatinine 0.6 mg/dL (0.55-1.02) 08/08/24 05:55 Medications needing adjustments: Reviewed (CrCl 121.29 mL/min) List of meds needing interventions: Current medications are okay Anticoagulation Anticoagulation: Hgb 10.7 g/dL (11.2-15.7) L 08/08/24 05:55 Hct 31.5 % (36.0-46.0) L 08/08/24 05:55 Plt Count 155 10^3/uL (130-400) 08/08/24 05:55 Creatinine 0.6 mg/dL (0.55-1.02) 08/08/24 05:55 DVT Prophylaxis: Reviewed (Hgb increased from 10 and HCT increased from 30.7) Medications: Enoxaparin (40mg daily) Relevant Labs Relevant Labs: Sodium 139 mmol/L (136-145) 08/08/24 05:55 Potassium 4.0 mmol/L (3.5-5.1) 08/08/24 05:55 Chloride 105 mmol/L (98-107) 08/08/24 05:55 Magnesium 2.4 mg/dL (1.8-2.4) 08/08/24 05:55 Electrolytes, C-Reactive P, ESR: Reviewed Cardiac Review BP, HR, EF%: Reviewed (BP 110/91 and HR 94) QTc Review QTc: Reviewed (435 from 05/30/21 - most recent EKG on file) IV to PO Switch IV Medications: Reviewed (ceftrazidime) Home Meds Home Med List reviewed: Intervened Relevent Home Meds Not ordered & why?: Advair - reached out to provider, carolyn araiza said unnecessary to put in order now as patient is being discharged. If patient is not discharged will reach out again. Current Meds Current Medication Order Review: Intervened Comments: Added IV admission order set Discontinued duplicate zolpidem order Pharmacy Antibiotic Review Relevant Labs: WBC 7.00 10^3/uL (4.4-10.8) 08/08/24 05:55 Temperature 37.0 C Temperature 36.6 C Microbiology 08/07/24 09:07 Urine Culture - Preliminary Urine - Clean Catch Gram Positive Tosin,Mixed 08/06/24 22:27 Blood Culture - Preliminary Blood NO GROWTH 24 HOURS 08/06/24 22:27 Blood Culture - Preliminary Blood NO GROWTH 24 HOURS Pharmacy Antibiotic Activity: C/S review and Reviewed, no change Comments: Patient is on ceftrazidime, day 2, for neutropenic fever. WBC increased from 1.47, ANC increased from 0.09 to 3.22 and patient is afebrile since 08/07 at 1350. Patient did not get dose of Neulasta after last chemotherapy treatment (autoinjector failed per cancer center). Provider put in now one order last night but it was never given. Nursing during morning meeting was not sure why it was not given last night (says potentially because it fell off and was not noticed). Per provider patient is improving so did not reorder Neulasta. Comments Comments/Follow Ups: Reach out to provider again regarding Advair if patient is not discharged (home med not ordered)
[2024-08-08 15:11] VITALS: BP 110/79; PULSE 76; RESP 18; TEMP 36.3; O2SAT 96
--- NOTE | 2024-08-08 16:39 | CHAPLAIN ---
I visited with Yani this morning just after she returned from the shower. I explained my role and offered support.
[2024-08-08 21:17] VITALS: BP 102/65; PULSE 86; RESP 16; TEMP 37.6; O2SAT 96
[2024-08-08] MEDS: Melatonin 3 MG TAB 6 MG PO (21:36)
[2024-08-09] MEDS: cefTAZidime 2,000 MG in Normal Saline 100 ML 200 MG IVPB ×2 (01:12→12:09)
[2024-08-09 06:40] LABS: HCT 32.8 % (36.0-46.0); HGB 11.1 g/dL (11.2-15.7); MCHC 33.8 % (32.0-36.0); MCV 89 fL (80-95); MPV 10.7 fL (8.0-11.0); Platelet Count 169 10^3/uL (130-400); RDW 14.1 % (11.7-14.6); RDW-SD 44.2 fL; WBC 19.51 10^3/uL (4.4-10.8)
[2024-08-09 06:43] LABS: Anion Gap 6.2 mmol/L (3-11); BUN 8 mg/dL (7-18); CO2 26.8 mmol/L (21.0-32.0); CREATININE 0.7 mg/dL (0.55-1.02); Calcium 8.9 mg/dL (8.5-10.1); Chloride 104 mmol/L (98-107); Estimated GFR 110.67 (mL/min/1.73m2); Glucose 105 mg/dL (74-106); Magnesium 2.3 mg/dL (1.8-2.4); Sodium 137 mmol/L (136-145)
--- NOTE | 2024-08-09 06:50 | PGE_ITS ---
Assessment and Plan Assessment and plan (1) Neutropenia with fever: Status: Acute Assessment and plan: Fortunately she is low risk per CISNE and MASCC risk indices. This means she could be possibly managed as an outpatient after initial 48 hour observation. Continue ceftazidime as more studied in neutropenic fever. Blood and urine culture negative to date viral screens negative. Pegfilgrastim auto injector failed - 6 mg was ordered but was not given WBC 7 today, improved, absolute neutrophils improved to 3.[address] [place] [facility] [place] his recommendation is for her to stay until BC are 48h - discussed this with patient and she is willing to stay until tomorrow am when we get results. Reviewed today's labs and that they were encouraging. He also recommended she be discharged on a floxacillin with intrabdominal covera ge 7-[address] Moulton he recommends discharge with cipro and augmentin. [place] [facility] [place] verify dc antibiotic before discharge - they recommend 7- 10 days of out patient antibiotics. (2) Breast cancer: Status: Chronic Assessment and plan: s/p 3 cycles of AC-T chemotherapy with Adriamycin (doxorubicin), Cyclophosphamide, and Taxol (paclitaxel) Qualifiers: Breast location: unspecified site of breast Estrogen receptor status: positive Patient sex: female Laterality: left Qualified Code(s): C50.912 - Malignant neoplasm of unspecified site of left female breast; Z17.0 - Estrogen receptor positive status [ER+] (3) Asthma: Status: Chronic Assessment and plan: Not active, continue controller inahler. (4) DVT prophylaxis: Status: Acute Assessment and plan: enoxaparin due to cancer and some decreased acitivity. monitor platelets (155 today) Objective Last Vital Signs Temp 37.6 C H 08/08/24 21:17 Pulse 86 08/08/24 21:17 Resp 16 08/08/24 21:17 BP 102/65 08/08/24 21:17 Pulse Ox 96 08/08/24 21:17 Laboratory Results - last 24 hr 08/08/24 08/09/24 05:55 06:15 WBC 7.00 RBC 3.52 L Hgb 10.7 L Hct 31.5 L MCV 90 MCH 30.4 MCHC 34.0 RDW 13.9 Plt Count 155 MPV 11.5 H Immature Gran % 0.0 Neutrophils % 29.0 Band Neutrophils % 17 Lymphocytes % 34.0 Monocytes % 11.0 Eosinophils % 0.0 Basophils % 1.0 Metamyelocytes % 6 Myelocytes % 2 Nucleated RBC % 0.0 Absolute Neutrophils 3.22 Absolute Lymphocytes 2.38 Absolute Monocytes 0.77 Absolute Eosinophils 0.00 Absolute Basophils 0.07 RBC Morphology Normal Sodium 137 Potassium 4.0 Chloride 104 Carbon Dioxide 26.8 Anion Gap 6.2 BUN 8 Creatinine 0.7 Est GFR (CKD-EPI 2020) 110.67 Glucose 105 Calcium 8.9 Magnesium 2.3
[2024-08-09 07:20] VITALS: BP 108/72; PULSE 87; RESP 17; TEMP 36.8; O2SAT 97
[2024-08-09 07:35] LABS: Absolute Lymphocyte Count 3.12 10^3/uL (1.2-3.4); Absolute Monocyte Count 0.78 10^3/uL (0.1-0.8); Absolute Neutrophil Count 14.05 10^3/uL (1.2-6.7); Bands % 11 %; Diff Comment Manual Differential; Metamyelocytes % 6; Myelocytes % 1; RBC Morphology Normal
[2024-08-09] MEDS: Enoxaparin 40 MG/0.4 ML SYR SC (08:30)
--- NOTE | 2024-08-09 14:04 | DSE_ITS ---
Date of service: 08/09/24 Time of Service: 14:04 DS: Diagnosis Discharge Diagnosis (1) Neutropenia with fever: Status: Acute (2) Breast cancer: Status: Chronic (3) Asthma: Status: Chronic (4) DVT prophylaxis: Status: Acute Discharge Plan Disposition Patient Disposition: Home Condition: Improving Discharge Details Reason For Visit: neutropenic fever Admit Date/Time: 08/06/24 23:38 Admit Provider: Kevin Ureña Attending Provider: Kevin Ureña Primary Care Provider: Michelle Gallardo [facility] Course Hospital Course: This 43 years old female patient with a past medical history of breast cancer currently on AC-T chemotherapy q 2 weeks after left mastectomy who was recently admitted 07/25- for fever with moderate neutropenia who presents 8 days after her 3rd round of chemotherapy with recurrent fever of 101.5 at home. She describes feeling chills this afternoon around 3pm, took her temperature orally and was high. No other complaints reported. Denied major other side effects fr om the chemo so far. Denied headaches, upper respiratory infection symptoms such rhinorrhea, sore throat, cough, shortness of breath, wheezing; also denied rashes, neck pain, vision changes, dizziness, ear pain, cough, chest pain, diarrhea or abodminal pain. 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 She wears a mask at school and is careful with cleaning. Workup in the ED was significant for for severe leukopenia, white cell count 1.01 with ANC 0.02. CMP was reassuring. UA was not consistent with UTI.The patient was admitted last round of chemo for antibiotics while awaiting culture results. Case discussed by ED provider and oncology resident (?Akcole) with recommendation for ceftriaxone 2 gm. The hospitalist was consulted and the patient admitted to the medical surgical floor for neutropenic fever. During the stay, the patient continue to receive IV antibiotic therapy with ceftazidime and we stopped ceftriaxone IV. Upon follow-up with [facility] oncology, Dr. Bonilla recommended the continuation of oral antibiotics once blood cultures were negative for 48 hours. He also recommended to call in to report the patient statement regarding her Onpro Amigen for Neulasta not working. Report called at -[phone] for device # [id number]- issued. WBC up to 19K, ANC 14.05 today, pointing to device malfunction versus delayed r esponse.Bood cultures showed not growth at 48 hours. The patient will be discharge home on Ciprofloxacin 500 mg every 12 hours and Augmentin 125/875 mg every 12 hours for 10 days. A daily oral probiotic to take 3 hours apart from the antibiotics was added without contraindications as per oncologist Dr. Bonilla. Discussed with Dr. Vo Home Meds and New Rx's Prescriptions: New melatonin 3 mg Tablet 6 mg PO HS PRN PRN (Reason: Sleep) Qty: 60 0RF ciprofloxacin HCl 500 mg tablet 500 mg PO BID Qty: 14 0RF amoxicillin-pot clavulanate 875-125 mg tablet 1 tab PO Q12H Qty: 14 0RF Bio-K plus 50 billion cell capsule,delayed release(DR/EC) 1 cap PO DAILY Qty: 7 0RF Continued cetirizine [Allergy Relief (cetirizine)] 10 mg tablet 10 mg PO DAILY PRN fluticasone propion-salmeterol [Advair HFA] 230-21 mcg/actuation HFA aerosol inhaler 2 puff inhalation PRN prochlorperazine maleate [Compazine] 10 mg tablet 10 mg PO Q6H PRN dexamethasone 4 mg tablet 4 mg PO BID PRN ParaGard T 380A 380 square mm intrauterine device 1 device intrauterine ONCE Rx Instructions: as a single dose Discharge Instructions Referrals: Michelle Gallardo [Primary Care Provider] - (F/u within 7 days of discharge please) Activity:: Activity as Tolerated Equipment/Supplies:: No Equipment Needed Diet:: As Tolerated Discharge Orders Discharge Orders: Discharge Order (Routine); Ordered 08/09/24 Ordered By: Eladia Mancera DS: Summary Time Spent with Patient providing and/or coordinating discharge services: Greater than 30 minutes Status at Discharge Functional status at discharge: independent ambulation Overall status at discharge: patient is back to baseline Mental Status: mental status grossly normal Speech and Movement: speech and movement normal Mood: congruent mood Affect: normal affect Quality:SDOH Health Related Social Needs: No Data to Display Exam Narrative Exam Narrative: Constitutional The patient is sitting in bed comfortable without acute distress Neuro:alert and oriented to self, person, place time and situation. No neurological focal deficit Resp: Unlabored breathing, clear lung bilaterally Cardio: regular rhythm, S1, S2, no murmur,positive bilateral radial and pedal pulses GI: Abdomen is not distended, soft and non tender, bowel sounds are present : Negative Costovertebral angle tenderness Integumentary: No skin lesions or rash Extremities: strength 5/5 to bilateral lower and upper extremities Psych: RASS 0, congruent mood and normal affect. Psych Mental Status: mental status grossly normal Speech and Movement: speech and movement normal Mood: congruent mood Affect: normal affect DS: Data Vitals/I&O Vitals and I&O: Vital Signs Temperature 36.8 C 08/09/24 07:20 Temperature Source Tympanic 08/09/24 07:20 Pulse 87 08/09/24 07:20 Pulse Rhythm Regular 08/07/24 01:01 Pulse 99 H 08/07/24 00:30 Respiratory Rate 17 08/09/24 07:20 Respiratory Effort Normal 08/07/24 01:01 Respiratory Depth Normal 08/07/24 01:01 Respiratory Pattern Normal 08/07/24 01:01 Blood Pressure 108/72 08/09/24 07:20 Blood Pressure Mean 71 08/07/24 00:00 Blood Pressure Position Sitting 08/07/24 00:43 Pulse Oximetry 97 08/09/24 07:20 Oxygen Delivery Method Room Air 08/09/24 07:20 Oxygen Flow Rate 0 08/09/24 07:20 Pain Level 0 08/09/24 07:20 Intake & Output 08/08/24 08/09/24 08/09/24 23:59 11:59 23:59 Intake Total 100 / 300 100 / 100 Balance 100 / 300 100 / 100 Intake: IV 100 / 300 100 / 100 Other: Urine Color Yellow Yellow Urine Appearance Clear Clear Urine Odor Normal Normal Voiding Methods Toilet Data Completed and Pending Labs on day of discharge: Labs from last 24 hours 08/09/24 08/09/24 06:25 06:15 WBC 19.51 H RBC 3.70 L Hgb 11.1 L Hct 32.8 L MCV 89 MCH 30.0 MCHC 33.8 RDW 14.1 Plt Count 169 MPV 10.7 Immature Gran % 0.0 Neutrophils % 61.0 Band Neutrophils % 11 Lymphocytes % 16.0 Monocytes % 4.0 Eosinophils % 0.0 Basophils % 1.0 Metamyelocytes % 6 Myelocytes % 1 Nucleated RBC % 0.0 Absolute Neutrophils 14.05 H Absolute Lymphocytes 3.12 Absolute Monocytes 0.78 Absolute Eosinophils 0.00 Absolute Basophils 0.20 RBC Morphology Normal Sodium 137 Potassium 4.0 Chloride 104 Carbon Dioxide 26.8 Anion Gap 6.2 BUN 8 Creatinine 0.7 Est GFR (CKD-EPI 2020) 110.67 Glucose 105 Calcium 8.9 Magnesium 2.3 08/09/24 06:45 Urine - Clean Catch Urine Culture - Pending Preliminary micro results at discharge 08/09/24 06:45 Urine Culture - Pending Urine - Clean Catch 08/06/24 22:27 Blood Culture - Preliminary Blood NO GROWTH 48 HOURS 08/06/24 22:27 Blood Culture - Preliminary Blood NO GROWTH 48 HOURS PFSH All Active Problems DVT prophylaxis (Acute) Breast cancer (Chronic) IDC, G3, ER/[place]+ and HER2 - pT2(m)N3 - stage 3 left breast s/p mastectomy Neutropenia with fever (Acute) IUD surveillance (Acute 07/03/24) Paragard Abnormal findings on diagnostic imaging of breast (Acute) Asthma (Chronic) uses inhaler occasionally History of thyroid disorder (Acute) Environmental allergies (Acute 10/28/14) Medical History History of gestational diabetes mellitus (GDM) Hypothyroidism Diagnosed after recurrent loss. not taking medication currently Hip dysplasia Surgical History S/P left mastectomy and targeted LN dissection History of biopsy (~04/2024) breast left Status post primary low transverse section 03/03/22. Reynaldo Weston. Breech, unsuccessful ECV History of hip surgery History of arthroscopic knee surgery Family History Mother Mouth cancer Father Diabetes Substance use disorder Alcohol use disorder Social History Smoking/Tobacco Use Status: Never Smoking risk assessment performed?: Yes Drug use: Never Substance use type: does not use Details: wine daily up until a couple of months ago. 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 Date GA/Weeks # Preg Succ Route Wgt Sex Labor Lgth Anesth esia Location [facility] 08/21/09 36 Yes vaginal 2466.409 g Female local [facility] 08/09/19 11/20/20 39 No vaginal 3316.[address] Male [address]. Alda [place] 03/03/22 39 No 2834.952 g Male KJ Delivery Date: 08/21/09 Last Updated by: Shayy Ignacio MD Lydia PROM, pitocin augmentation Delivery Date: 08/09/19 Last Updated by: Shayy Ignacio M.D. 6 1st trimester SAB/MAB 2017-2019. D&C x1 Delivery Date: 11/20/20 Last Updated by: Shayy Ignacio MD [place] IOL due to AMA. induction started 4 pm, delivered 8 hours later. precipitous delivery. Delivery Date: 03/03/22 Last Updated by: Shayy Ignacio MD [place] PCS for breech, failed ECV Time Spent with Patient Time Spent with Patient: >85 minutes Time was spent: preparing to see the patient(eg.review tests), obtaining and/or reviewing separately otained hiistory, ordering medications,tests, procedures, referring, communicating with other health patient care secretary, indepentently interpreting results, counseling the patient and care coordination
--- NOTE | 2024-08-09 15:22 | CMDISCH_ITS ---
Date of service: 08/09/24 Time of Service: 15:22 LACE Index Scoring Tool Questions: Length of Stay (in days): 3 Was the patient admitted via the E.D.?: Yes Comorbidities: Metastatic Solid Tumor E.D. Visits: 2 Answers: Total Score: 13 Risk of Readmission: High Risk Care Management Discharge Plan Reason for Hospitalization: neutropenic fever Discharge Plan: Yani will be discharged home with no new services. She will follow up with her community providers both locally and at [facility] and will transport with family. Patient/Family Education Needs: Review of discharge instructions, limitations, follow up plan, discuss Ask Me Three. SDOH Health Related Social Needs: No Data to Display
== END 2024-08-09 15:01 | disposition home or self-care (01) ==
LOC: ER 08-07 00:58 → MS 08-07 01:01
PROVIDERS: Nurse Practitioner Family; Admitting Provider Family Medicine; Emergency Provider Nurse Practitioner Family; PCP Family Medicine; Visit Provider Family Medicine
DX: R50.81 Fever presenting with conditions classified elsewhere; Z17.0 Estrogen receptor positive status [ER+]; C50.912 Malignant neoplasm of unspecified site of left female breast; J45.909 Unspecified asthma, uncomplicated; D70.1 Agranulocytosis secondary to cancer chemotherapy; Z90.12 Acquired absence of left breast and nipple; E03.9 Hypothyroidism, unspecified; Z79.899 Other long term (current) drug therapy
CPT/HCPCS: 00123; 36415; 80048; 80053; 87040; 87637; 96365; 96366; 96367; 96372; 99285; J1650; 81003; 83735; 85025; 87086; 99221; 99232; 99239; G0378; J0696; J0713

== ENCOUNTER 2024-08-24 09:39 | Outpatient (CLI) | payer BC, MEDICAID, SELFPAY ==
[2024-08-24 09:57] LABS: HCT 31.1 % (36.0-46.0); HGB 10.1 g/dL (11.2-15.7); MCH 30.4 pg (27.0-33.0); MCHC 32.5 % (32.0-36.0); MCV 94 fL (80-95); MPV 10.9 fL (8.0-11.0); Platelet Count 134 10^3/uL (130-400); RBC 3.32 10^6/uL (3.93-5.22); RDW 15.6 % (11.7-14.6); RDW-SD 51.2 fL
[2024-08-24 10:15] LABS: Absolute Lymphocyte Count 3.21 10^3/uL (1.2-3.4); Absolute Monocyte Count 0.92 10^3/uL (0.1-0.8); Absolute Neutrophil Count 15.57 10^3/uL (1.2-6.7); Bands % 25 %; Diff Comment Manual Differential; Metamyelocytes % 4; Myelocytes % 10; RBC Morphology Normal
[2024-08-24 10:17] LABS: ALT 25 U/L (14-59); AST 16 U/L (15-37); Albumin 3.5 g/dL (3.4-5.0); Alkaline Phosphatase 169 U/L (46-116); Anion Gap 9.6 mmol/L (3-11); BUN 10 mg/dL (7-18); Bilirubin, Total 0.16 mg/dL (0.2-1.0); CO2 28.4 mmol/L (21.0-32.0); CREATININE 0.7 mg/dL (0.55-1.02); Calcium 9.1 mg/dL (8.5-10.1); Chloride 107 mmol/L (98-107); Estimated GFR 110.67 (mL/min/1.73m2); Glucose 115 mg/dL (74-106); Sodium 145 mmol/L (136-145); Total Protein 7.1 g/dL (6.4-8.2)
== END 2024-08-24 09:40 | disposition home or self-care (01) ==
LOC: LBO 09:40
PROVIDERS: PCP Family Medicine; Visit Provider Physician Assistant Medical
DX: C50.212 Malignant neoplasm of upper-inner quadrant of left female breast (principal); Z17.0 Estrogen receptor positive status [ER+]; Z79.899 Other long term (current) drug therapy
CPT/HCPCS: 36415; 80053; 85025

== ENCOUNTER 2025-03-21 01:43 | Outpatient (CLI) | payer BC, MEDICAID, SELFPAY ==
[2025-03-21 16:51] LABS: ALT 20 U/L (14-59); AST 21 U/L (15-37); Albumin 3.9 g/dL (3.4-5.0); Alkaline Phosphatase 137 U/L (46-116); Anion Gap 6.6 mmol/L (3-11); BUN 15 mg/dL (7-18); Bilirubin, Total 0.2 mg/dL (0.2-1.0); CO2 29.4 mmol/L (21.0-32.0); CREATININE 0.9 mg/dL (0.55-1.02); Calcium 9.1 mg/dL (8.5-10.1); Chloride 104 mmol/L (98-107); Estimated GFR 81.35 (mL/min/1.73m2); Glucose 127 mg/dL (74-106); Sodium 140 mmol/L (136-145); Total Protein 7.5 g/dL (6.4-8.2)
[2025-03-22 19:37] LABS: Cancer Ag 15-3 10 U/mL (<30)
== END 2025-03-21 01:44 | disposition home or self-care (01) ==
PROVIDERS: PCP Family Medicine; Visit Provider Nurse Practitioner Family
DX: C50.212 Malignant neoplasm of upper-inner quadrant of left female breast (principal); Z17.0 Estrogen receptor positive status [ER+]
CPT/HCPCS: 36415; 80053; 86300

== ENCOUNTER 2025-03-22 14:59 | Outpatient (CLI) | payer BC, MEDICAID, SELFPAY ==
--- NOTE | 2025-03-22 15:00 | RT.EKG_ITS ---
APPROVED REPORT Exam: Resting ECG Reason for Exam: medication follow up Patient Location: O HR:83 bpm ECG Measurements Heart Rate 83 AXIS GA 152 P 19 QRSd 86 QRS 6 QT 376 T 27 QTc 442 Conclusion Sinus rhythm...normal P axis, V-rate 50- 99 Normal Electrocardiogram
== END 2025-03-22 15:00 | disposition home or self-care (01) ==
PROVIDERS: PCP Family Medicine; Visit Provider Dermatology
DX: Z79.899 Other long term (current) drug therapy (principal)
CPT/HCPCS: 93005; 93010

== ENCOUNTER 2025-04-05 00:53 | Outpatient (CLI) | payer BC, MEDICAID, SELFPAY ==
[2025-04-05 15:44] LABS: ALT 17 U/L (14-59); AST 10 U/L (15-37); Alkaline Phosphatase 152 U/L (46-116); Anion Gap 7.5 mmol/L (3-11); BUN 14 mg/dL (7-18); Bilirubin, Total 0.2 mg/dL (0.2-1.0); CO2 31.5 mmol/L (21.0-32.0); CREATININE 0.9 mg/dL (0.55-1.02); Calcium 9.5 mg/dL (8.5-10.1); Chloride 103 mmol/L (98-107); Estimated GFR 81.35 (mL/min/1.73m2); Glucose 140 mg/dL (74-106); Potassium 4.5 mmol/L (3.5-5.1); Sodium 142 mmol/L (136-145); Total Protein 7.5 g/dL (6.4-8.2)
[2025-04-05 16:38] LABS: Abs Immature Grans 0.01 10^3/uL (0.0-0.06); Absolute Basophil Count 0.04 10^3/uL (0.0-0.2); Absolute Eosinophil Count 0.14 10^3/uL (0.0-0.7); Absolute Lymphocyte Count 0.84 10^3/uL (1.2-3.4); Absolute Monocyte Count 0.34 10^3/uL (0.1-0.8); Absolute Neutrophil Count 1.67 10^3/uL (1.2-6.7); Basophils % 1.3 %; Eosinophils % 4.6 %; HCT 38.8 % (36.0-46.0); HGB 12.9 g/dL (11.2-15.7); Immature Grans % 0.3 %; Lymphocytes % 27.6 %; MCHC 33.2 % (32.0-36.0); MCV 93 fL (80-95); MPV 9.8 fL (8.0-11.0); Monocytes % 11.2 %; Platelet Count 233 10^3/uL (130-400); RBC 4.16 10^6/uL (3.93-5.22); RDW 14.6 % (11.7-14.6); RDW-SD 49.7 fL; WBC 3.04 10^3/uL (4.4-10.8)
[2025-04-09 15:18] LABS: Cancer Ag 15-3 13 U/mL (<30)
== END 2025-04-05 00:54 | disposition home or self-care (01) ==
PROVIDERS: PCP Family Medicine; Visit Provider Nurse Practitioner Family
DX: C50.212 Malignant neoplasm of upper-inner quadrant of left female breast (principal); Z17.0 Estrogen receptor positive status [ER+]
CPT/HCPCS: 36415; 80053; 86300; 85025

== ENCOUNTER 2025-04-19 14:58 | Outpatient (CLI) | payer BC, MEDICAID, SELFPAY ==
--- NOTE | 2025-04-19 15:00 | RT.EKG_ITS ---
APPROVED REPORT Exam: Resting ECG Reason for Exam: BREAST CA Patient Location: O HR:87 bpm ECG Measurements Heart Rate 87 AXIS VT 153 P 14 QRSd 89 QRS 0 QT 381 T 21 QTc 459 Conclusion Sinus rhythm...normal P axis, V-rate 50- 99 RSR' in V1 or V2, probably normal variant...small R' only Normal Electrocardiogram
== END 2025-04-19 14:59 | disposition home or self-care (01) ==
PROVIDERS: PCP Family Medicine; Visit Provider Nurse Practitioner Family
DX: C50.912 Malignant neoplasm of unspecified site of left female breast (principal)
CPT/HCPCS: 93005; 93010

== ENCOUNTER 2025-04-19 15:49 | Outpatient (CLI) | payer BC, MEDICAID, SELFPAY ==
[2025-04-19 16:02] LABS: HCT 36.2 % (36.0-46.0); HGB 12.1 g/dL (11.2-15.7); MCHC 33.4 % (32.0-36.0); MCV 93 fL (80-95); MPV 10.7 fL (8.0-11.0); Platelet Count 292 10^3/uL (130-400); RDW 14.6 % (11.7-14.6); RDW-SD 48.9 fL; WBC 3.13 10^3/uL (4.4-10.8)
[2025-04-19 16:34] LABS: ALT 25 U/L (14-59); AST 18 U/L (15-37); Alkaline Phosphatase 159 U/L (46-116); Anion Gap 7.9 mmol/L (3-11); BUN 14 mg/dL (7-18); Bilirubin, Total 0.2 mg/dL (0.2-1.0); CO2 30.1 mmol/L (21.0-32.0); Calcium 9.1 mg/dL (8.5-10.1); Chloride 105 mmol/L (98-107); Estimated GFR 71.69 (mL/min/1.73m2); Glucose 95 mg/dL (74-106); Potassium 4.2 mmol/L (3.5-5.1); Sodium 143 mmol/L (136-145); Total Protein 7.5 g/dL (6.4-8.2)
[2025-04-19 16:35] LABS: Absolute Eosinophil Count 0.19 10^3/uL (0.0-0.7); Absolute Lymphocyte Count 0.81 10^3/uL (1.2-3.4); Absolute Monocyte Count 0.09 10^3/uL (0.1-0.8); Absolute Neutrophil Count 2.03 10^3/uL (1.2-6.7); Diff Comment Manual Differential; RBC Morphology Normal
[2025-04-23 11:40] LABS: Cancer Ag 15-3 13 U/mL (<30)
== END 2025-04-19 15:50 | disposition home or self-care (01) ==
LOC: LBO 15:54
PROVIDERS: PCP Family Medicine; Visit Provider Nurse Practitioner Family
DX: C50.212 Malignant neoplasm of upper-inner quadrant of left female breast (principal); Z17.0 Estrogen receptor positive status [ER+]
CPT/HCPCS: 36415; 80053; 86300; 85025

== ENCOUNTER 2025-05-02 09:51 | Outpatient (CLI) | payer BC, MEDICAID, SELFPAY | END 2025-05-02 09:52 | disposition home or self-care (01) | PROVIDERS: PCP Family Medicine; Visit Provider Nurse Practitioner Family | DX: C50.919 Malignant neoplasm of unspecified site of unspecified female breast (principal) | CPT/HCPCS: 93005; 93010 ==

== ENCOUNTER 2025-05-02 10:19 | Outpatient (CLI) | payer BC, MEDICAID, SELFPAY ==
[2025-05-02 11:02] LABS: Abs Immature Grans 0.02 10^3/uL (0.0-0.06); Absolute Basophil Count 0.04 10^3/uL (0.0-0.2); Absolute Eosinophil Count 0.13 10^3/uL (0.0-0.7); Absolute Lymphocyte Count 0.48 10^3/uL (1.2-3.4); Absolute Monocyte Count 0.29 10^3/uL (0.1-0.8); Basophils % 1.4 %; Eosinophils % 4.4 %; HCT 39.2 % (36.0-46.0); HGB 12.9 g/dL (11.2-15.7); Immature Grans % 0.7 %; Lymphocytes % 16.2 %; MCH 30.6 pg (27.0-33.0); MCHC 32.9 % (32.0-36.0); MCV 93 fL (80-95); MPV 10.4 fL (8.0-11.0); Monocytes % 9.8 %; Neutrophils % 67.5 %; Platelet Count 187 10^3/uL (130-400); RBC 4.21 10^6/uL (3.93-5.22); RDW 15.2 % (11.7-14.6); RDW-SD 52.1 fL; WBC 2.96 10^3/uL (4.4-10.8)
[2025-05-02 11:56] LABS: ALT 25 U/L (14-59); AST 18 U/L (15-37); Albumin 4.1 g/dL (3.4-5.0); Alkaline Phosphatase 149 U/L (46-116); Anion Gap 7.6 mmol/L (3-11); BUN 14 mg/dL (7-18); Bilirubin, Total 0.2 mg/dL (0.2-1.0); CO2 28.4 mmol/L (21.0-32.0); CREATININE 0.8 mg/dL (0.55-1.02); Calcium 9.5 mg/dL (8.5-10.1); Chloride 106 mmol/L (98-107); Glucose 92 mg/dL (74-106); Potassium 4.8 mmol/L (3.5-5.1); Sodium 142 mmol/L (136-145); Total Protein 7.7 g/dL (6.4-8.2)
[2025-05-04 09:17] LABS: Cancer Ag 15-3 14 U/mL (<30)
== END 2025-05-02 10:20 | disposition home or self-care (01) ==
LOC: LBO 10:20
PROVIDERS: PCP Family Medicine; Visit Provider Nurse Practitioner Family
DX: C50.212 Malignant neoplasm of upper-inner quadrant of left female breast (principal); Z17.0 Estrogen receptor positive status [ER+]
CPT/HCPCS: 36415; 80053; 86300; 85025

== ENCOUNTER 2025-05-30 09:53 | Outpatient (CLI) | payer BC, MEDICAID, SELFPAY ==
--- NOTE | 2025-05-30 09:45 | RT.EKG_ITS ---
APPROVED REPORT Exam: Resting ECG Reason for Exam: Breast CA Patient Location: O HR:77 bpm ECG Measurements Heart Rate 77 AXIS MT 151 P 26 QRSd 88 QRS 1 QT 373 T 21 QTc 423 Conclusion Sinus rhythm...normal P axis, V-rate 50- 99 Normal Electrocardiogram
== END 2025-05-30 09:54 | disposition home or self-care (01) ==
PROVIDERS: PCP Family Medicine; Visit Provider Nurse Practitioner Family
DX: C50.919 Malignant neoplasm of unspecified site of unspecified female breast (principal); Z13.6 Encounter for screening for cardiovascular disorders
CPT/HCPCS: 93005; 93010

== ENCOUNTER 2025-05-30 10:53 | Outpatient (CLI) | payer BC, MEDICAID, SELFPAY ==
[2025-05-30 09:58] LABS: Abs Immature Grans 0.01 10^3/uL (0.0-0.06); HCT 37.4 % (36.0-46.0); HGB 12.4 g/dL (11.2-15.7); Immature Grans % 0.4 %; MCH 31.1 pg (27.0-33.0); MCHC 33.2 % (32.0-36.0); MCV 94 fL (80-95); MPV 10.4 fL (8.0-11.0); Platelet Count 184 10^3/uL (130-400); RBC 3.99 10^6/uL (3.93-5.22); RDW 15.9 % (11.7-14.6); RDW-SD 54.5 fL; WBC 2.59 10^3/uL (4.4-10.8)
[2025-05-30 10:40] LABS: ALT 25 U/L (14-59); AST 16 U/L (15-37); Albumin 3.8 g/dL (3.4-5.0); Alkaline Phosphatase 142 U/L (46-116); Anion Gap 9.5 mmol/L (3-11); BUN 17 mg/dL (7-18); Bilirubin, Total 0.3 mg/dL (0.2-1.0); CO2 25.5 mmol/L (21.0-32.0); Calcium 9.2 mg/dL (8.5-10.1); Chloride 106 mmol/L (98-107); Estimated GFR 109.98 (mL/min/1.73m2); Glucose 98 mg/dL (74-106); Potassium 4.3 mmol/L (3.5-5.1); Sodium 141 mmol/L (136-145); Total Protein 7.3 g/dL (6.4-8.2)
[2025-06-03 10:50] LABS: Cancer Ag 15-3 15 U/mL (<30)
== END 2025-05-30 10:54 | disposition home or self-care (01) ==
LOC: LBO 10:53
PROVIDERS: PCP Family Medicine; Visit Provider Nurse Practitioner Family
DX: C50.212 Malignant neoplasm of upper-inner quadrant of left female breast (principal); Z17.0 Estrogen receptor positive status [ER+]
CPT/HCPCS: 36415; 80053; 86300; 85025

== ENCOUNTER 2025-09-18 01:53 | Outpatient (CLI) | payer BC, SELFPAY ==
[2025-09-18 10:52] LABS: Abs Immature Grans 0.01 10^3/uL (0.0-0.06); HCT 39.6 % (36.0-46.0); HGB 13.0 g/dL (11.2-15.7); Immature Grans % 0.2 %; MCH 32.0 pg (27.0-33.0); MCHC 32.8 % (32.0-36.0); MCV 98 fL (80-95); MPV 10.7 fL (8.0-11.0); Platelet Count 239 10^3/uL (130-400); RBC 4.06 10^6/uL (3.93-5.22); RDW 14.0 % (11.7-14.6); RDW-SD 50.7 fL; WBC 4.15 10^3/uL (4.4-10.8)
[2025-09-18 11:09] LABS: ALT 13 U/L (10-49); AST 20 U/L (<34); Albumin 4.7 g/dL (3.4-5.0); Alkaline Phosphatase 143 U/L (46-116); Anion Gap 7.9 mmol/L (3-11); BUN 20 mg/dL (9-23); Bilirubin, Total 0.30 mg/dL (0.2-1.2); CO2 28.1 mmol/L (20.0-31.0); Calcium 9.4 mg/dL (8.3-10.6); Chloride 108 mmol/L (98-107); Glucose 99 mg/dL (74-106); Potassium 5.0 mmol/L (3.5-5.1); Sodium 144 mmol/L (136-145); Total Protein 7.4 g/dL (5.7-8.2)
[2025-09-20 11:15] LABS: Cancer Ag 15-3 15 U/mL (<30)
== END 2025-09-18 01:54 | disposition home or self-care (01) ==
LOC: LBO 01:53
PROVIDERS: PCP Family Medicine; Visit Provider Internal Medicine
DX: C50.212 Malignant neoplasm of upper-inner quadrant of left female breast (principal); Z17.0 Estrogen receptor positive status [ER+]
CPT/HCPCS: 36415; 80053; 86300; 85025